=== PATIENT | male | born 1975 | race Caucasian/White ===

== ENCOUNTER 2019-02-05 22:59 | Inpatient (IN) | payer OTHER ==
[~2019-02-05] VITALS: Ht 188 cm; Wt 103.0 kg
[2019-02-05] MEDS ORDERED: ACETAMINOPHEN 650 MG SUPP.RECT. PR ONE (23:15)
[2019-02-05 23:17] LABS: BASO % 1 % (0-3); EOS % 0 % (0-3); HEMATOCRIT 39.4 % (39.0-53.0); HEMOGLOBIN 13.6 g/dL (13.0-17.5); LYMPH % 17 % (24-48); MEAN CORPUSCULAR HEMOGLOBIN 30 pg (25-35); MEAN CORPUSCULAR HGB CONC 35 g/dL (31-37); MEAN CORPUSCULAR VOLUME 86 fL (79-100); MONO # 0.9 x10^3/uL (0.0-1.1); MONO % 15 % (0-9); NEUT # 4.1 x10^3/uL (1.8-7.7); NEUT % 67 % (31-73); PLATELET COUNT 178 x10^3/uL (140-400); RED CELL DISTRIBUTION WIDTH 13.3 % (11.5-14.5); WHITE BLOOD COUNT 6.1 x10^3/uL (4.0-11.0)
[2019-02-05 23:26] LABS: PROTHROMBIN TIME PATIENT 13.8 SEC (11.7-14.0)
[2019-02-05 23:28] LABS: CALCIUM 8.3 mg/dL (8.5-10.1); CREATININE 0.9 mg/dL (0.7-1.3); POTASSIUM 3.3 mmol/L (3.5-5.1)
[2019-02-05 23:34] LABS: ALBUMIN 3.6 g/dL (3.4-5.0); ALBUMIN/GLOBULIN RATIO 1.1 (1.0-1.7); MAGNESIUM 1.7 mg/dL (1.8-2.4); TOTAL BILIRUBIN 0.4 mg/dL (0.2-1.0); TOTAL PROTEIN 6.9 g/dL (6.4-8.2)
--- NOTE | 2019-02-05 23:47 | RAD ---
CT scan of the head without contrast 02/05/2019 Clinical History: Head trauma. Syncope. Technique: Unenhanced, contiguous, 5 mm axial sections were obtained through the head. One or more of the following individualized dose reduction techniques were utilized for this study: 1. Automated exposure control. 2. Adjustment of the mA and/or kV according to patient size. 3. Use of iterative reconstruction technique. Findings: A acute subdural hematomas seen on the right temporal and frontal lobes extending to involve the anterior interhemispheric fissure. This measures 3 to 4 mm in thickness. There is no significant mass effect. The ventricles are within normal limits in size and configuration. No acute parenchymal abnormality is seen. An acute nearly horizontal fracture is seen along the petrous portion of the right temporal bone. This extends to involve the external auditory canal. The hemorrhage is seen within the external auditory canal and possibly the middle ear cavity. Hemorrhage is seen within the superior mastoid air cells. IMPRESSION: 1. Acute subdural hematoma is seen along the lateral aspect of the right temporal and right frontal lobes extending to involve the anterior interhemispheric fissure. This measures 3 to 4 mm in thickness. There is no significant mass effect. 2. Acute fracture is seen involving the petrous portion of the right temporal bone. This extends to involve the right external auditory canal. CT scan of the cervical spine without contrast 02/05/2019 Clinical history: Trauma. Neck injury. Technique: Unenhanced, contiguous, 0.625 mm axial sections were obtained through the cervical spine. Axial, coronal and sagittal reconstructed images were obtained. One or more of the following individualized dose reduction techniques were utilized for this study: 1. Automated exposure control. 2. Adjustment of the mA and/or kV according to patient size. 3. Use of iterative reconstruction technique. Findings: Sagittal and coronal reconstructed images demonstrate mild straightening of the normal cervical lordosis. No fracture or subluxation of the cervical vertebrae is seen. Impression: No fracture or subluxation of the cervical vertebra is identified. These findings were discussed with Dr. Kohli. Electronically signed by: Prabhakar Washburn MD (02/05/2019 11:44 PM) [facility]
--- NOTE | 2019-02-05 23:48 | RAD ---
Indication:Syncope, fever. TECHNIQUE:Portable AP chest X-ray COMPARISON: None FINDINGS: Heart is normal in size. Mild interstitial opacities without focal consolidation. No pneumothorax or effusion. Visualized bony thorax within normal limits. IMPRESSION: Mild interstitial opacities may be secondary to atypical/viral infection. Electronically signed by: Lito Reyes DO (02/05/2019 11:45 PM) [facility]
[2019-02-05 23:56] LABS: BILIRUBIN,URINE NEGATIVE (NEG); CLARITY,URINE CLEAR; COLOR,URINE YELLOW; NITRITE,URINE NEGATIVE (NEG); PH,URINE 6.5; PROTEIN,URINE NEGATIVE (NEG-TRACE)
--- NOTE | 2019-02-05 23:57 | PHYS DOC ---
Past Medical History Past Medical History: Anxiety Additional Past Medical Histor: PTSD, sleep apnea Past Medical History Limited due to altered mental status Additional Past Surgical Histo: Hernia Past Surgical History Limited due to altered mental status Smoking: Cigarettes Alcohol Use: Occasionally Drug Use: None Social History Limited due to altered mental status Adult General Chief Complaint Chief Complaint: ALTERED MENTAL STATUS HPI HPI 43-year-old male presents via EMS with report of witnessed syncopal episode after patient had a "coughing fit " just prior to arrival. EMS reports family noted patient "passed out" and fell backward striking back of head. Family reported to EMS that he was passed out for approximately 30 sec and was "shaking". Patient very confused upon EMS arrival which improved during transport. Patient was placed in c-collar by EMS but then patient "removed it" in route. Per family, patient has had cough for several days. Reports he was complaining that it "hurt" when he would smoke cigarettes. History of present illness limited due to altered mental status. Review of Systems Review of Systems HENT: Denies epistaxis; possible bleeding out of right ear GI: Denies vomiting Neurologic: Reports syncopal episode and observed "shaking" Review of systems limited secondary to altered mental status Current Medications Current Medications Current Medications Medications (Trade) Dose Ordered Sig/Alexy Start Time Stop Time Status Last Admin Dose Admin Acetaminophen (Tylenol Supp) 650 mg 1X ONCE 02/05/19 23:15 02/06/19 00:06 DC 02/05/19 23:48 650 MG Lorazepam (Ativan Inj) 2 mg STK-MED ONCE 02/05/19 23:46 02/05/19 23:47 DC Physical Exam Physical Exam Constitutional: Well developed, well nourished, no acute distress, non-toxic appearance HENT: Normocephalic, occipital contusion noted, oropharynx moist, blood noted in external ear canal on right Eyes: PERRL, EOMI, conjunctiva normal, no discharge Neck: Supple, c-collar placed upon arrival Cardiovascular: Heart rate normal, regular rhythm Lungs & Thorax: Bilateral breath sounds clear to auscultation, no wheezing Abdomen: Soft, no tenderness, pelvis stable and nontender Skin: Warm, dry, no erythema, no rash Back: No tenderness, no CVA tenderness Extremities: No tenderness, ROM intact, no edema Neurologic: Alert and oriented to name only, GCS 14, normal motor function, normal sensory function, no focal deficits noted Current Patient Data Vital Signs Vital Signs Date Time Temp Pulse Resp B/P (MAP) Pulse Ox O2 Delivery O2 Flow Rate FiO2 02/05/19 22:59 101.3 80 13 122/72 (89) 90 Room Air 101.3 Lab Values Laboratory Tests Test 02/05/19 23:05 02/05/19 23:45 White Blood Count 6.1 x10^3/uL (4.0-11.0) Red Blood Count 4.60 x10^6/uL (4.30-5.70) Hemoglobin 13.6 g/dL (13.0-17.5) Hematocrit 39.4 % (39.0-53.0) Mean Corpuscular Volume 86 fL (79-100) Mean Corpuscular Hemoglobin 30 pg (25-35) Mean Corpuscular Hemoglobin Concent 35 g/dL (31-37) Red Cell Distribution Width 13.3 % (11.5-14.5) Platelet Count 178 x10^3/uL (140-400) Neutrophils (%) (Auto) 67 % (31-73) Lymphocytes (%) (Auto) 17 % (24-48) L Monocytes (%) (Auto) 15 % (0-9) H Eosinophils (%) (Auto) 0 % (0-3) Basophils (%) (Auto) 1 % (0-3) Neutrophils # (Auto) 4.1 x10^3/uL (1.8-7.7) Lymphocytes # (Auto) 1.0 x10^3/uL (1.0-4.8) Monocytes # (Auto) 0.9 x10^3/uL (0.0-1.1) Eosinophils # (Auto) 0.0 x10^3/uL (0.0-0.7) Basophils # (Auto) 0.0 x10^3/uL (0.0-0.2) Prothrombin Time 13.8 SEC (11.7-14.0) Prothrombin Time INR 1.1 (0.8-1.1) Activated Partial Thromboplast Time 40 SEC (24-38) H Sodium Level 137 mmol/L (136-145) Potassium Level 3.3 mmol/L (3.5-5.1) L Chloride Level 101 mmol/L (98-107) Carbon Dioxide Level 24 mmol/L (21-32) Anion Gap 12 (6-14) Blood Urea Nitrogen 6 mg/dL (8-26) L Creatinine 0.9 mg/dL (0.7-1.3) Estimated GFR (Cockcroft-Gault) 93.0 BUN/Creatinine Ratio 7 (6-20) Glucose Level 123 mg/dL (70-99) H Lactic Acid Level 0.9 mmol/L (0.4-2.0) Calcium Level 8.3 mg/dL (8.5-10.1) L Magnesium Level 1.7 mg/dL (1.8-2.4) L Total Bilirubin 0.4 mg/dL (0.2-1.0) Aspartate Amino Transferase (AST) 35 U/L (15-37) Alanine Aminotransferase (ALT) 63 U/L (16-63) Alkaline Phosphatase 69 U/L (46-116) Creatine Kinase 360 U/L (39-308) H Creatine Kinase MB (Mass) 1.0 ng/mL (0.0-3.6) Creatine Kinase MB Relative Index 0.3 % (0-4) Troponin I Quantitative < 0.017 ng/mL (0.000-0.055) Total Protein 6.9 g/dL (6.4-8.2) Albumin 3.6 g/dL (3.4-5.0) Albumin/Globulin Ratio 1.1 (1.0-1.7) Ethyl Alcohol Level < 10 mg/dL (0-10) Urine Collection Type Unknown Urine Color Yellow Urine Clarity Clear Urine pH 6.5 Urine Specific [place] 1.010 Urine Protein Negative mg/dL (NEG-TRACE) Urine Glucose (UA) Negative mg/dL (NEG) Urine Ketones (Stick) 15 mg/dL (NEG) Urine Blood Negative (NEG) Urine Nitrite Negative (NEG) Urine Bilirubin Negative (NEG) Urine Urobilinogen Dipstick 1.0 mg/dL (0.2 mg/dL) Urine Leukocyte Esterase Negative (NEG) Urine RBC 1-2 /HPF (0-2) Urine WBC 0 /HPF (0-4) Urine Bacteria 0 /HPF (0-FEW) Urine Mucus Mod /LPF Urine Opiates Screen Neg (NEG) Urine Methadone Screen Neg (NEG) Urine Barbiturates Neg (NEG) Urine Phencyclidine Screen Neg (NEG) Urine Amphetamine/Methamphetamine Neg (NEG) Urine Benzodiazepines Screen Neg (NEG) Urine Cocaine Screen Neg (NEG) Urine Cannabinoids Screen Neg (NEG) Urine Ethyl Alcohol Neg (NEG) Laboratory Tests 02/05/19 23:05 Laboratory Tests 02/05/19 23:05 EKG EKG @2329 at 81bpm, NO ST elevation, QRS 104ms, QT/QTc 348/405ms Radiology/Procedures Radiology/Procedures PROCEDURE: CT HEAD AND CERVICAL SPINE WO CT scan of the head without contrast 02/05/2019 Clinical History: Head trauma. Syncope. Technique: Unenhanced, contiguous, 5 mm axial sections were obtained through the head. One or more of the following individualized dose reduction techniques were utilized for this study: 1. Automated exposure control. 2. Adjustment of the mA and/or kV according to patient size. 3. Use of iterative reconstruction technique. Findings: A acute subdural hematomas seen on the right temporal and frontal lobes extending to involve the anterior interhemispheric fissure. This measures 3 to 4 mm in thickness. There is no significant mass effect. The ventricles are within normal limits in size and configuration. No acute parenchymal abnormality is seen. An acute nearly horizontal fracture is seen along the petrous portion of the right temporal bone. This extends to involve the external auditory canal. The hemorrhage is seen within the external auditory canal and possibly the middle ear cavity. Hemorrhage is seen within the superior mastoid air cells. IMPRESSION: 1. Acute subdural hematoma is seen along the lateral aspect of the right temporal and right frontal lobes extending to involve the anterior interhemispheric fissure. This measures 3 to 4 mm in thickness. There is no significant mass effect. 2. Acute fracture is seen involving the petrous portion of the right temporal bone. This extends to involve the right external auditory canal. CT scan of the cervical spine without contrast 02/05/2019 Clinical history: Trauma. Neck injury. Technique: Unenhanced, contiguous, 0.625 mm axial sections were obtained through the cervical spine. Axial, coronal and sagittal reconstructed images were obtained. One or more of the following individualized dose reduction techniques were utilized for this study: 1. Automated exposure control. 2. Adjustment of the mA and/or kV according to patient size. 3. Use of iterative reconstruction technique. Findings: Sagittal and coronal reconstructed images demonstrate mild straightening of the normal cervical lordosis. No fracture or subluxation of the cervical vertebrae is seen. Impression: No fracture or subluxation of the cervical vertebra is identified. These findings were discussed with Dr. Cat. Electronically signed by: Prabhakar Washburn MD (02/05/2019 11:44 PM) [facility] PROCEDURE: PORTABLE CHEST 1V Indication:Syncope, fever. TECHNIQUE:Portable AP chest X-ray COMPARISON: None FINDINGS: Heart is normal in size. Mild interstitial opacities without focal consolidation. No pneumothorax or effusion. Visualized bony thorax within normal limits. IMPRESSION: Mild interstitial opacities may be secondary to atypical/viral infection. Electronically signed by: Lito Reyes DO (02/05/2019 11:45 PM) [facility] Course & Med Decision Making Course & Med Decision Making Pertinent Labs and Imaging studies reviewed. (See chart for details) Patient presents via EMS with report of syncopal episode after coughing "fit". Patient noted to have bleeding out of right ear canal. Trauma alert. Patient placed immediately in c-collar. CT head/cervical spine with confirmation of skull fracture and small subdural hematoma. Labs obtained and posted to chart. WBC and lactic acid within normal limits. Chest x-ray with signs of atypical/viral bronchitis. Empiric antibiotics initiated for skull fracture and atypical bronchitis. Ativan provided as patient became agitated and tried to get out of bed without support. Patient requiring ICU admission for further evaluation and treatment. Discussed with Dr. Chavira (neurosurgery) who is in agreement with consultation. Discussed with Dr. Colunga (hospitalist) who is in agreement with admission. Discussed findings and plan with family, who acknowledge understanding and agreement. Dragon Disclaimer Dragon Disclaimer This electronic medical record was generated, in whole or in part, using a voice recognition dictation system. Departure Departure Impression: Primary Impression: Syncope Additional Impressions: Skull fracture Subdural hematoma Bronchitis Disposition: 09 ADMITTED INPATIENT Admitting Physician: REBA Crawley) Condition: GUARDED Referrals: NO PCP (PCP) Critical Care Time Critical care time was 30 minutes which includes time at bedside, spent in discussion of patient's care with specialists and/or family members, with interpretation of laboratory and/or radiological studies and is exclusive of procedures. Problem Qualifiers Primary Impression: Syncope Syncope type: unspecified Qualified Codes: R55 - Syncope and collapse Additional Impressions: Skull fracture Encounter type: initial encounter Skull bone/location: unspecified skull bone Fracture type: open Qualified Codes: S02.91XB - Unspecified fracture of skull, initial encounter for open fracture GAMA CAT DO Feb 05, 2019 23:57
[2019-02-06] VITALS (24 sets, daily range): BP systolic 95–143; BP diastolic 43–79
[2019-02-06] LABS: BACTERIA,URINE 0 /HPF (0-FEW); WBC,URINE 0 /HPF (0-4)
[2019-02-06 00:02] LABS: BARBITURATES NEG (NEG); BENZODIAZEPINES NEG (NEG); CANNABINOIDS NEG (NEG); COCAINE NEG (NEG); METHADONE NEG (NEG); OPIATES NEG (NEG); PHENCYCLIDINE NEG (NEG)
[2019-02-06 00:04] LABS: AMPHETAMINE/METHAMPHETAMINE NEG (NEG)
[2019-02-06] MEDS: POTASSIUM CHLORIDE 10MEQ 100 ML IV SCH ×2 (00:14→01:35)
[2019-02-06] MEDS ORDERED: MAGNESIUM SULFATE 2GM 50 ML IV ONE (00:30)
[2019-02-06] MEDS ORDERED: PIPERACILLIN/TAZOBACTAM 4.5 GM in IV NORMAL SALINE 100ML 100 ML IV ONE (00:30)
[2019-02-06] MEDS ORDERED: IV NORMAL SALINE 1000ML BAG 1,000 ML IV ONE (00:30)
--- NOTE | 2019-02-06 02:33 | NUR ---
At 0100, patient admitted to room 107 from ER. Patient moved from cart to bed. Monitor on. Patient alert and oriented to person and place. Drowsy but able to follow commands. RIA. SIMENTAL with equal strength. SR. 2LNC with coarse lung sounds. Melendez to d/d. Small amount of blood coming from right ear. No c/o pain or discomfort at this time. Call light is within reach. at bedside. Will monitor.
[2019-02-06] MEDS ORDERED: ESOM40CA PO (03:28)
[2019-02-06] MEDS ORDERED: AMIT25TA PO (03:28)
[2019-02-06] MEDS ORDERED: PROP10TA PO (03:28)
[2019-02-06] MEDS ORDERED: DULO30CA2 PO (03:28)
--- NOTE | 2019-02-06 08:48 | PDOC1 ---
History and Physical Date of Admission Date of Admission DATE: 02/06/19 TIME: 08:45 Identification/Chief Complaint Chief Complaint admitted thru er ,43-year-old male presents via EMS with report of witnessed syncopal episode after patient had a "coughing fit " just prior to arrival. EMS reports family noted patient "passed out" and fell backward striking back of head. He states he is visiting from [place], [place], his son is in [facility], and he was staying in a motel 8 miles from here. Family reported to EMS that he was passed out for approximately 30 sec and was "shaking". very confused upon EMS arrival which improved during transport., now very alert and oriented fever noted on admit, will screen for pertussis, add zithromax was placed in c-collar by EMS but then patient "removed it" in route. patient has had cough for several days. 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 [employer] Pulmonary: Other (BRONCHITIS) Psych: Anxiety ENT: No pertinent hx Renal/: No pertinent hx Dermatology: No pertinent hx Family History Family History: High Cholestrol Social History Smoke: <1 pack per day ALCOHOL: none Drugs: None Current Problem List Problem List Problems Medical Problems: (1) Bronchitis Status: Acute Current Medications Current Medications Current Medications Acetaminophen (Tylenol Supp) 650 mg 1X ONCE MT Last administered on 02/05/19at 23:48; Start 02/05/19 at 23:15; Stop 02/06/19 at 00:06; Status DC Sodium Chloride 1,000 ml @ 1,000 mls/hr 1X ONCE IV Last administered on 02/05/19at 23:20; Start 02/06/19 at 00:30; Stop 02/06/19 at 01:29; Status DC Piperacillin Sod/ Tazobactam Sod 4.5 gm/Sodium Chloride 100 ml @ 200 mls/hr 1X ONCE IV Last administered on 02/06/19at 00:13; Start 02/06/19 at 00:30; Stop 02/06/19 at 00:59; Status DC Magnesium Sulfate 50 ml @ 25 mls/hr 1X ONCE IV Last administered on 02/06/19at 00:14; Start 02/06/19 at 00:30; Stop 02/06/19 at 02:29; Status DC Potassium Chloride/Water 100 ml @ 100 mls/hr Q1H IV Last administered on 02/06/19at 01:35; Start 02/06/19 at 01:00; Stop 02/06/19 at 02:59; Status DC Lorazepam (Ativan Inj) 2 mg STK-MED ONCE .ROUTE ; Start 02/05/19 at 23:46; Stop 02/05/19 at 23:47; Status DC Ondansetron HCl (Zofran) 4 mg PRN Q8HRS PRN IV NAUSEA/VOMITING 1ST CHOICE; Start 02/06/19 at 00:00; Stop 02/06/19 at 23:59 Fentanyl Citrate (Fentanyl 2ml Vial) 50 mcg PRN Q2HRS PRN IV SEVERE PAIN 7-10; Start 02/06/19 at 00:00 Lorazepam (Ativan Inj) 1 mg PRN Q4HRS PRN IVP ANXIETY / AGITATION; Start 02/06/19 at 00:15 Active Scripts Active Reported Amitriptyline Hcl 25 Mg Tablet 1 Tab PO QHS Propranolol Hcl 10 Mg Tablet 1 Tab PO TID PRN PRN Nexium Capsule (Esomeprazole Magnesium) 40 Mg Capsule.dr 1 Cap PO DAILY Cymbalta (Duloxetine Hcl) 30 Mg Capsule.dr 1 Cap PO DAILY Allergies Allergies: Coded Allergies: No Known Drug Allergies (Unverified , 02/06/19) ROS General: No: Chills, Night Sweats, Fatigue, Malaise, Appetite, Other PSYCHOLOGICAL ROS: YES: Anxiety, Disorientation; No: Behavioral Disorder, Concentration difficultie, Decreased libido, Depression, Hallucinations, Hostility, Irritablity, Memory difficulties, Mood Swings, Obsessive thoughts, Physical abuse, Sexual abuse, Sleep disturbances, Suicidal ideation, Other HEENT: YES: Heacaches Hematological and Lymphatic: No: Bleeding Problems, Blood Clots, Blood Transfusions, Brusing, Night Sweats, Pallor, Swollen Lymph Nodes, Other Breast: No New/Changing Breast Lumps, No Nipple changes, No Nipple discharge, No Other Respiratory: YES: Cough, Shortness of breath, Sputum Changes Cardiovascular: No Chest Pain, No Palpitations, No Orthopnea, No Paroxysmal Noc. Dyspnea, No Edema, No Lt Headedness, No Other Gastrointestinal: No Nausea, No Vomiting, No Abdominal Pain, No Diarrhea, No Co nstipation, No Melena, No Hematochezia, No Other Genitourinary: No Dysuria, No Frequency, No Incontinence, No Hematuria, No Retention, No Discharge, No Urgency, No Pain, No Flank Pain, No Other, No , No , No , No , No , No , No Musculoskeletal: Yes Gait Disturbance Neurological: Yes Confusion, Yes Gait Disturbance, Yes Impaired Coord/balance Physical Exam Physical Exam Physical Exam Physical Exam Constitutional: Well developed, well nourished, mild acute distress, non-toxic appearance HENT: Normocephalic, occipital contusion noted, oropharynx moist, blood noted in external ear canal on right Eyes: PERRL, EOMI, conjunctiva normal, no discharge Neck: Supple, c-collar placed upon arrival Cardiovascular: Heart rate normal, regular rhythm Lungs & Thorax: Bilateral breath sounds clear to auscultation, no wheezing Abdomen: Soft, no tenderness, pelvis stable and nontender Skin: Warm, dry, no erythema, no rash Back: No tenderness, no CVA tenderness Extremities: No tenderness, ROM intact, no edema Neurologic: Alert and oriented normal motor function, normal sensory function, no focal deficits noted General: Alert, Oriented X3, Cooperative Heart: RRR, no thrills, no rubs Breasts: Not examined Abdomen: Normal bowel sounds, Soft Rectal Exam: not examined PELVIC: Examination not indicated Extremities: No cyanosis Neuro: Normal speech, Cranial nerves 3-12 NL Psych/Mental Status: Mental status NL, Mood NL Vitals Vitals Vital Signs Date Time Temp Pulse Resp B/P (MAP) Pulse Ox O2 Delivery O2 Flow Rate FiO2 02/06/19 06:00 79 22 100/62 (75) 92 Room Air 02/06/19 04:00 98.1 98.1 02/06/19 01:15 2.0 Labs Labs Laboratory Tests Test 02/05/19 23:05 02/05/19 23:45 White Blood Count 6.1 x10^3/uL (4.0-11.0) Red Blood Count 4.60 x10^6/uL (4.30-5.70) Hemoglobin 13.6 g/dL (13.0-17.5) Hematocrit 39.4 % (39.0-53.0) Mean Corpuscular Volume 86 fL (79-100) Mean Corpuscular Hemoglobin 30 pg (25-35) Mean Corpuscular Hemoglobin Concent 35 g/dL (31-37) Red Cell Distribution Width 13.3 % (11.5-14.5) Platelet Count 178 x10^3/uL (140-400) Neutrophils (%) (Auto) 67 % (31-73) Lymphocytes (%) (Auto) 17 % (24-48) Monocytes (%) (Auto) 15 % (0-9) Eosinophils (%) (Auto) 0 % (0-3) Basophils (%) (Auto) 1 % (0-3) Neutrophils # (Auto) 4.1 x10^3/uL (1.8-7.7) Lymphocytes # (Auto) 1.0 x10^3/uL (1.0-4.8) Monocytes # (Auto) 0.9 x10^3/uL (0.0-1.1) Eosinophils # (Auto) 0.0 x10^3/uL (0.0-0.7) Basophils # (Auto) 0.0 x10^3/uL (0.0-0.2) Prothrombin Time 13.8 SEC (11.7-14.0) Prothromb Time International Ratio 1.1 (0.8-1.1) Activated Partial Thromboplast Time 40 SEC (24-38) Sodium Level 137 mmol/L (136-145) Potassium Level 3.3 mmol/L (3.5-5.1) Chloride Level 101 mmol/L (98-107) Carbon Dioxide Level 24 mmol/L (21-32) Anion Gap 12 (6-14) Blood Urea Nitrogen 6 mg/dL (8-26) Creatinine 0.9 mg/dL (0.7-1.3) Estimated GFR (Cockcroft-Gault) 93.0 BUN/Creatinine Ratio 7 (6-20) Glucose Level 123 mg/dL (70-99) Lactic Acid Level 0.9 mmol/L (0.4-2.0) Calcium Level 8.3 mg/dL (8.5-10.1) Magnesium Level 1.7 mg/dL (1.8-2.4) Total Bilirubin 0.4 mg/dL (0.2-1.0) Aspartate Amino Transf (AST/SGOT) 35 U/L (15-37) Alanine Aminotransferase (ALT/SGPT) 63 U/L (16-63) Alkaline Phosphatase 69 U/L (46-116) Creatine Kinase 360 U/L (39-308) Creatine Kinase MB (Mass) 1.0 ng/mL (0.0-3.6) Creatine Kinase MB Relative Index 0.3 % (0-4) Troponin I Quantitative < 0.017 ng/mL (0.000-0.055) Total Protein 6.9 g/dL (6.4-8.2) Albumin 3.6 g/dL (3.4-5.0) Albumin/Globulin Ratio 1.1 (1.0-1.7) Ethyl Alcohol Level < 10 mg/dL (0-10) Urine Collection Type Unknown Urine Color Yellow Urine Clarity Clear Urine pH 6.5 Urine Specific [place] 1.010 Urine Protein Negative mg/dL (NEG-TRACE) Urine Glucose (UA) Negative mg/dL (NEG) Urine Ketones (Stick) 15 mg/dL (NEG) Urine Blood Negative (NEG) Urine Nitrite Negative (NEG) Urine Bilirubin Negative (NEG) Urine Urobilinogen Dipstick 1.0 mg/dL (0.2 mg/dL) Urine Leukocyte Esterase Negative (NEG) Urine RBC 1-2 /HPF (0-2) Urine WBC 0 /HPF (0-4) Urine Bacteria 0 /HPF (0-FEW) Urine Mucus Mod /LPF Urine Opiates Screen Neg (NEG) Urine Methadone Screen Neg (NEG) Urine Barbiturates Neg (NEG) Urine Phencyclidine Screen Neg (NEG) Urine Amphetamine/Methamphetamine Neg (NEG) Urine Benzodiazepines Screen Neg (NEG) Urine Cocaine Screen Neg (NEG) Urine Cannabinoids Screen Neg (NEG) Urine Ethyl Alcohol Neg (NEG) Laboratory Tests Test 02/05/19 23:05 02/05/19 23:45 White Blood Count 6.1 x10^3/uL (4.0-11.0) Red Blood Count 4.60 x10^6/uL (4.30-5.70) Hemoglobin 13.6 g/dL (13.0-17.5) Hematocrit 39.4 % (39.0-53.0) Mean Corpuscular Volume 86 fL (79-100) Mean Corpuscular Hemoglobin 30 pg (25-35) Mean Corpuscular Hemoglobin Concent 35 g/dL (31-37) Red Cell Distribution Width 13.3 % (11.5-14.5) Platelet Count 178 x10^3/uL (140-400) Neutrophils (%) (Auto) 67 % (31-73) Lymphocytes (%) (Auto) 17 % (24-48) Monocytes (%) (Auto) 15 % (0-9) Eosinophils (%) (Auto) 0 % (0-3) Basophils (%) (Auto) 1 % (0-3) Neutrophils # (Auto) 4.1 x10^3/uL (1.8-7.7) Lymphocytes # (Auto) 1.0 x10^3/uL (1.0-4.8) Monocytes # (Auto) 0.9 x10^3/uL (0.0-1.1) Eosinophils # (Auto) 0.0 x10^3/uL (0.0-0.7) Basophils # (Auto) 0.0 x10^3/uL (0.0-0.2) Prothrombin Time 13.8 SEC (11.7-14.0) Prothromb Time International Ratio 1.1 (0.8-1.1) Activated Partial Thromboplast Time 40 SEC (24-38) Sodium Level 137 mmol/L (136-145) Potassium Level 3.3 mmol/L (3.5-5.1) Chloride Level 101 mmol/L (98-107) Carbon Dioxide Level 24 mmol/L (21-32) Anion Gap 12 (6-14) Blood Urea Nitrogen 6 mg/dL (8-26) Creatinine 0.9 mg/dL (0.7-1.3) Estimated GFR (Cockcroft-Gault) 93.0 BUN/Creatinine Ratio 7 (6-20) Glucose Level 123 mg/dL (70-99) Lactic Acid Level 0.9 mmol/L (0.4-2.0) Calcium Level 8.3 mg/dL (8.5-10.1) Magnesium Level 1.7 mg/dL (1.8-2.4) Total Bilirubin 0.4 mg/dL (0.2-1.0) Aspartate Amino Transf (AST/SGOT) 35 U/L (15-37) Alanine Aminotransferase (ALT/SGPT) 63 U/L (16-63) Alkaline Phosphatase 69 U/L (46-116) Creatine Kinase 360 U/L (39-308) Creatine Kinase MB (Mass) 1.0 ng/mL (0.0-3.6) Creatine Kinase MB Relative Index 0.3 % (0-4) Troponin I Quantitative < 0.017 ng/mL (0.000-0.055) Total Protein 6.9 g/dL (6.4-8.2) Albumin 3.6 g/dL (3.4-5.0) Albumin/Globulin Ratio 1.1 (1.0-1.7) Ethyl Alcohol Level < 10 mg/dL (0-10) Urine Collection Type Unknown Urine Color Yellow Urine Clarity Clear Urine pH 6.5 Urine Specific [place] 1.010 Urine Protein Negative mg/dL (NEG-TRACE) Urine Glucose (UA) Negative mg/dL (NEG) Urine Ketones (Stick) 15 mg/dL (NEG) Urine Blood Negative (NEG) Urine Nitrite Negative (NEG) Urine Bilirubin Negative (NEG) Urine Urobilinogen Dipstick 1.0 mg/dL (0.2 mg/dL) Urine Leukocyte Esterase Negative (NEG) Urine RBC 1-2 /HPF (0-2) Urine WBC 0 /HPF (0-4) Urine Bacteria 0 /HPF (0-FEW) Urine Mucus Mod /LPF Urine Opiates Screen Neg (NEG) Urine Methadone Screen Neg (NEG) Urine Barbiturates Neg (NEG) Urine Phencyclidine Screen Neg (NEG) Urine Amphetamine/Methamphetamine Neg (NEG) Urine Benzodiazepines Screen Neg (NEG) Urine Cocaine Screen Neg (NEG) Urine Cannabinoids Screen Neg (NEG) Urine Ethyl Alcohol Neg (NEG) Images Images Indication:Syncope, fever. TECHNIQUE:Portable AP chest X-ray COMPARISON: None FINDINGS: Heart is normal in size. Mild interstitial opacities without focal consolidation. No pneumothorax or effusion. Visualized bony thorax within normal limits. IMPRESSION: Mild interstitial opacities may be secondary to atypical/viral infection. Electronically signed by: Lito Reyes DO (02/05/2019 11:45 PM) [facility] scan of the head without contrast 02/05/2019 Clinical History: Head trauma. Syncope. Technique: Unenhanced, contiguous, 5 mm axial sections were obtained through the head. One or more of the following individualized dose reduction techniques were utilized for this study: 1. Automated exposure control. 2. Adjustment of the mA and/or kV according to patient size. 3. Use of iterative reconstruction technique. Findings: A acute subdural hematomas seen on the right temporal and frontal lobes extending to involve the anterior interhemispheric fissure. This measures 3 to 4 mm in thickness. There is no significant mass effect. The ventricles are within normal limits in size and configuration. No acute parenchymal abnormality is seen. An acute nearly horizontal fracture is seen along the petrous portion of the right temporal bone. This extends to involve the external auditory canal. The hemorrhage is seen within the external auditory canal and possibly the middle ear cavity. Hemorrhage is seen within the superior mastoid air cells. IMPRESSION: 1. Acute subdural hematoma is seen along the lateral aspect of the right temporal and right frontal lobes extending to involve the anterior interhemispheric fissure. This measures 3 to 4 mm in thickness. There is no significant mass effect. 2. Acute fracture is seen involving the petrous portion of the right temporal bone. This extends to involve the right external auditory canal. CT scan of the cervical spine without contrast 02/05/2019 Clinical history: Trauma. Neck injury. Technique: Unenhanced, contiguous, 0.625 mm axial sections were obtained through the cervical spine. Axial, coronal and sagittal reconstructed images were obtained. One or more of the following individualized dose reduction techniques were utilized for this study: 1. Automated exposure control. 2. Adjustment of the mA and/or kV according to patient size. 3. Use of iterative reconstruction technique. Findings: Sagittal and coronal reconstructed images demonstrate mild straightening of the normal cervical lordosis. No fracture or subluxation of the cervical vertebrae is seen. Impression: No fracture or subluxation of the cervical vertebra is identified. These findings were discussed with Dr. Kohli. Electronically signed by: Chapis Washburn MD (02/05/2019 11:44 PM) [facility] DICTATED and SIGNED BY: CHAPIS WASHBURN MD DATE: 02/05/19 2344 VTE Prophylaxis Ordered VTE Prophylaxis Devices: Yes VTE Pharmacological Prophylaxi: Contraindicated Assessment/Plan Assessment/Plan IMPRESSION: 1. Acute subdural hematoma is seen along the lateral aspect of the right temporal and right frontal lobes extending to involve the anterior interhemispheric fissure. // measures 3 to 4 mm in thickness.//no significant mass effect. POA 2. Acute fracture is seen involving the petrous portion of the right temporal bone. extends to the right external auditory canal. 3. Mild interstitial opacities may be secondary to atypical/viral infection. vs early pneumonia VS BRONCHITIS 4. mechanical fall 5. tobacco abuse 6. No fracture or subluxation of the cervical vertebra is identified. 7. acute metabolic encephalopathy, concussion, improving plan ADMIT ICU Neurosurgery consult ID Consult neurology consult emperic iv antibiotics, add cover for atypicals// zithromax blood culture scd's sputum culture fall precautions pertussis screen duonebs qid repeat cxr pulm consult legionella urinary antigen NPO F/U CT HEAD IV FLUID SUPPORT D/W RN 45 min cc time DIEGO QUEEN MD Feb 06, 2019 08:48
[2019-02-06] MEDS: fentaNYL PF VIAL 100 MCG/2 ML VIAL IV PRN ×5 (09:33→23:36)
[2019-02-06] MEDS ORDERED: BISACODYL 10 MG SUPP.RECT. PR PRN (11:30)
[2019-02-06] MEDS ORDERED: ONDANSETRON PF 4 MG/2 ML VIAL. IV PRN ×2 (11:30)
[2019-02-06] MEDS ORDERED: PROCHLORPERAZINE 10 MG/2 ML VIAL. IV PRN (11:30)
[2019-02-06] MEDS ORDERED: LACTULOSE 20 GM/30 ML SOLUTION. PO PRN (11:30)
[2019-02-06] MEDS ORDERED: CALCIUM CARBONATE 500 MG TAB.CHEW PO PRN (11:30)
[2019-02-06] MEDS ORDERED: 0.9 % SODIUM CHLORIDE 10 ML DISP.SYRIN. IV PRN (11:30)
[2019-02-06] MEDS ORDERED: ACETAMINOPHEN 325 MG TABLET. PO PRN (11:30)
--- NOTE | 2019-02-06 12:03 | RAD ---
EXAM: Chest, 2 views. HISTORY: Pneumonitis. COMPARISON: 02/05/2019. FINDINGS: 2 views of the chest are obtained. There is no infiltrate, pleural effusion or pneumothorax. There is suspected left infrahilar atelectasis. The heart is normal in size. IMPRESSION: No acute pulmonary finding. Electronically signed by: Freda Adam MD (02/06/2019 12:00 PM) [facility]
[2019-02-06] MEDS: AZITHROMYCIN 500 MG in IV NORMAL SALINE 250ML 250 ML IV SCH (13:03)
[2019-02-06] MEDS: IPRATRPIUM/ALBUTEROL 0.5/2.5MG 3 ML NEBU. NEB SCH ×2 (15:48→20:37)
[2019-02-06] MEDS: levETIRAcetam 500 MG TABLET PO SCH ×2 (15:57→21:08)
[2019-02-06] MEDS: guaiFENesin DM 600/30MG 1 TAB TAB.ER.12H PO SCH ×2 (15:57→21:08)
[2019-02-06 16:28] LABS: INFLUENZA A PATIENT NEGATIVE (NEGATIVE); INFLUENZA B PATIENT NEGATIVE (NEGATIVE)
--- NOTE | 2019-02-06 16:50 | RAD ---
Exam: CT head INDICATION: Follow-up subdural hematoma TECHNIQUE: Sequential axial images through the head were obtained without the administration of IV contrast. Comparisons: CT yesterday FINDINGS: Redemonstration of a trace subdural hematoma predominantly seen along the right frontal convexity overlying the frontal lobe measuring 2 to 3 mm in thickness. Since the prior exam there is now a 6 mm focus of intraparenchymal hemorrhage in the right frontal lobe series 2 image 14. There is no midline shift or sulcal effacement. No acute vascular territory infarction is identified. Carrillo-white distinction is preserved. The ventricular system is within normal limits without compression hydrocephalus. The basal cisterns are well maintained. The visualized portions of the paranasal sinuses and mastoid air cells are well-pneumatized. No acute fractures. IMPRESSION: 1. Development of a 6 mm focus of intraparenchymal hemorrhage at the right frontal lobe as described above. 2. Stable trace subdural hematoma predominantly in the right frontal convexity measuring 2 to 3 mm. Exposure: One or more of the following in the visualized dose reduction techniques were utilized for this examination: 1. Automated exposure control 2. Adjustment of the MA and/or KV according to patient size Use of iterative of reconstructive technique Electronically signed by: Fer Weber MD (02/06/2019 4:47 PM) [facility]
[2019-02-06] MEDS: DOCUSATE SODIUM 100 MG CAPSULE. PO SCH ×2 (21:00→21:08)
[2019-02-06] MEDS: FAMOTIDINE 20 MG/2 ML VIAL IVP SCH (21:09)
[2019-02-06] MEDS ORDERED: POTASSIUM CHLORIDE 20 MEQ TABLET.ER. PO ONE (22:30)
--- NOTE | 2019-02-06 23:43 | CONS ---
DATE OF CONSULTATION: 02/06/2019 REFERRING PHYSICIAN: Dr. Colunga REASON FOR CONSULTATION: Traumatic head injury with subdural hematoma and fracture. HISTORY OF PRESENT ILLNESS: The patient is a 43-year-old man who had been having a severe cough for the last 4 days. He had a coughing fit and then had syncope and he fell backwards and struck his head on concrete. He shook for about 30 seconds. They live in [place], but he had been visiting his son at [facility]. He is going to be there for another 3 years. He was confused when EMS arrived. In the Emergency Room at [facility], a CT scan of the head and neck revealed right-sided subdural hematoma with interhemispheric blood as well as fracture through the right ethmoid region and inner ear. There was some blood in the ear. He did not have a fracture of his neck. He is awoken, but does complain of diffuse pain and headache. PAST MEDICAL HISTORY: 1. Posttraumatic stress disorder and anxiety. 2. Sleep apnea. 3. Hernia repair. 4. Bronchitis. ALLERGIES: No known allergies to drugs. MEDICATIONS PRIOR TO ADMISSION: Amitriptyline 25 mg at night, duloxetine 30 mg, esomeprazole 20 mg and propranolol 10 mg 3 times per day as needed. FAMILY HISTORY: High cholesterol. SOCIAL HISTORY: He smokes less than a pack of cigarettes per day. He does not drink alcohol or use recreational drugs. He is and has four children. His oldest son is 24 and in [place]. He has an 18-year-old that graduated high school. His youngest is a 10-year-old daughter. His children are in good health. REVIEW OF SYSTEMS: He has headache. He has diminished hearing in the right ear. He has no alteration of vision. He feels foggy headed. He has been able to swallow without choking. He does not feel short of breath, have chest or abdominal pain. He is complaining of diffuse bone and joint pain. There has been no fever or rash. He has had a severe cough. No genitourinary complaints. Does not complain of bruising, bleeding or excessive swelling. Does have psychiatric concerns with anxiety and posttraumatic stress disorder. PHYSICAL EXAMINATION: VITAL SIGNS: Blood pressure was 100/62, pulse 79, respirations 22 and temperature 98.1 degrees axillary. Oximetry was 92% on room air. His weight was 103 kilograms, height 74 inches with a calculated body mass index of 29.1. GENERAL: He was alert, awake and cooperative. Speech was fluent and clear. He had a good fund of recent and remote knowledge. Attention and concentration was intact. He appeared well groomed and well nourished. He was fully oriented. He did not recall the name of the hospital, but is not from this area. NEUROLOGIC: Examination of the cranial nerves revealed visual reddy were full to confrontation. Extraocular movements were intact. The eyes were conjugate. Pursuit movements were smooth and saccadic eye movements were without dysmetria. Funduscopic exam did not reveal papilledema, exudate or hemorrhage. Facial sensation was intact. The muscles of mastication and facial expression were powerful symmetrically. Hearing was intact to finger rub. The palate arched symmetrically and the tongue was midline with full range of motion. Sternocleidomastoid and trapezius were powerful. Muscle bulk and tone was normal. There was no arm drift or abnormal movement. Power was full and symmetric in upper and lower extremities. Reflexes 2/4 in the upper and lower extremities. Reflexes were diminished at the ankles. Toes were not upgoing. Coordination testing with [id number], [id number], fine motor and rapid alternating movements were fairly well performed. The sensory exam was intact to pain, light touch, proprioception, graphesthesia, cold, thermal and vibration. There was no extinction to double simultaneous stimulation. Gait was not testable. NECK: Auscultation of the carotid arteries did not reveal a bruit. HEART: Rhythm is regular, without a murmur. EXTREMITIES: Peripheral pulses were symmetric in the hands and feet. There was no edema or cyanosis. REVIEW OF LABORATORY DATA: CBC was performed 02/05/2019 and revealed a normal white blood cell count, hemoglobin, hematocrit and platelet count. Chemistries from 02/05/2019 revealed normal sodium, but potassium was low at 3.3. The chloride, CO2 and creatinine were normal. BUN was low at 6. The GFR calculated at 93. Glucose was elevated at 123. The calcium was low at 8.3 and magnesium at 1.7. The liver enzymes were not elevated. Total protein and albumin were normal. CPK was elevated to 360. Troponin was not elevated, measured on 2 different occasions. Lactic acid was not elevated. Urine drug screen was negative. There was no alcohol detected in the urine or serum. Urinalysis revealed 1-2 red blood cells. PT/INR was 1.1 and PTT was 40. CT scan of the brain and cervical spine was performed 02/05/2019. This revealed a normal cervical spine without fracture or subluxation. The CT scan of the brain was abnormal revealing a subdural hematoma along the lateral aspect of the right temporal and frontal regions and a little blood into the anterior interhemispheric fissure. Maximum thickness was 3-4 mm without any significant mass effect. There was acute fracture to the petrous region of the right temporal bone extending to involve the right external auditory canal. There was blood seen in the external auditory canal. IMPRESSION: The patient is a 43-year-old man who had cough syncope, fell to the ground and struck his head. This caused fracture and subdural hematoma. Luckily, he did not fracture his neck. He has diminished hearing in the right ear because of the fracture and the blood in the region. He likely has suffered a concussion, but luckily no intraparenchymal hemorrhage. He likely suffered a concussion, but prognosis can be favorable in this situation. I do not feel he is going to require surgical intervention as there is no mass effect and there is no bony displacement. RECOMMENDATIONS: I would like to initiate levetiracetam 500 mg IV twice per day until oral intake is secured. I would continue anticonvulsants until the blood is absorbed. This may take a few months. He will have a followup CAT scan to make sure there has not been any progression of hemorrhage or mass effect. From a neurologic perspective if he is not nauseated, he may start to advance his diet. I will be happy to reevaluate. I appreciate being involved in his care. TOMASA DREW MD DR: AN/kaity JOB#: [id number] / [id number] [address]
[2019-02-07] VITALS (20 sets, daily range): BP systolic 106–131; BP diastolic 56–76
[2019-02-07] MEDS: fentaNYL PF VIAL 100 MCG/2 ML VIAL IV PRN ×4 (06:18→22:54)
--- NOTE | 2019-02-07 07:18 | PDOC ---
Provider Note Provider Note [id number] cough acute bronchitis acute bronchospasm syncope sdh see orders LINO HUGGINS MD Feb 07, 2019 07:18
[2019-02-07 07:57] LABS: BASO % 0 % (0-3); EOS % 0 % (0-3); HEMATOCRIT 37.8 % (39.0-53.0); HEMOGLOBIN 12.8 g/dL (13.0-17.5); LYMPH # 1.7 x10^3/uL (1.0-4.8); LYMPH % 21 % (24-48); MEAN CORPUSCULAR HEMOGLOBIN 29 pg (25-35); MEAN CORPUSCULAR HGB CONC 34 g/dL (31-37); MEAN CORPUSCULAR VOLUME 86 fL (79-100); MONO # 0.9 x10^3/uL (0.0-1.1); MONO % 11 % (0-9); NEUT # 5.6 x10^3/uL (1.8-7.7); NEUT % 68 % (31-73); PLATELET COUNT 190 x10^3/uL (140-400); RED BLOOD COUNT 4.37 x10^6/uL (4.30-5.70); RED CELL DISTRIBUTION WIDTH 13.3 % (11.5-14.5); WHITE BLOOD COUNT 8.2 x10^3/uL (4.0-11.0)
--- NOTE | 2019-02-07 08:12 | CONS ---
DATE OF CONSULTATION: 02/07/2019 HISTORY OF PRESENT ILLNESS: I was asked to see this 43-year-old gentleman for cough, acute bronchitis. He has history of [id number] smoking, continues to smoke half a pack per day. He has had severe cough with occasional sputum production for the past 4-5 days. He denies fever or chills. He denies shortness of breath. He has a history of asthma as a child. He lives in [place] and visited his [facility] and in a hotel parking lot, he had severe cough. He had a syncopal episode, he fell and was unresponsive for 30 seconds. EMS was called and he was brought to the Emergency Room, had a CT of the head done, which did show acute subdural hematoma at the lateral aspect of the right temporal and right frontal lobes extending to involve the anterior interhemispheric fissure measuring 3-4 mm in thickness, acute fracture involving the petrous portion of the right temporal bone extending to involve the right external auditory canal. Neurology and Neurosurgery consultation was obtained. Repeat CT showed a stable subdural hematoma with development of 6 mm focus of intraparenchymal hemorrhage at the right frontal lobe. Neurology started him on anti-seizure. Currently, he has headache. He denies shortness of breath. He has cough. He denies gastroesophageal reflux symptoms with diarrhea. PAST MEDICAL HISTORY: Post-traumatic stress disorder, sleep apnea. He had a sleep study done 3 years ago, was told to use oral appliances, he never did it. He does have excessive daytime sleepiness and snoring. Asthma as a child. MEDICATIONS: Currently, he is on DuoNeb, Pepcid, Keppra, azithromycin. ALLERGIES: No known drug allergies. SOCIAL HISTORY: History of 39-[id number]-[id number] smoking, continues to smoke half pack per day. FAMILY HISTORY: There is no history of lung disease. REVIEW OF SYSTEMS: As mentioned as above. He has snoring and excessive daytime sleepiness. Other systems are otherwise negative. PHYSICAL EXAMINATION: GENERAL: This is a well-developed gentleman. VITAL SIGNS: His O2 saturation is 98%, respiratory rate 20, heart rate 90, blood pressure 112/68, temperature 98.4. HEENT: Normocephalic. Pupils are equal, round, reactive to light. Throat is clear. Nose is clear. NECK: There is no JVD, lymphadenopathy or thyromegaly. CARDIOVASCULAR: Regular rate and rhythm. PMI is nondisplaced. CHEST: Inspection is normal. LUNGS: Few end expiratory wheezing. Percussion is within normal limit. ABDOMEN: Soft. Bowel sounds are good. There is no mass. EXTREMITIES: There is no edema. LYMPHATICS: There is no lymphadenopathy. NEUROLOGIC: Alert and oriented. SKIN: Warm. LABORATORY DATA: I reviewed the following lab data: CT of head as mentioned above. WBC 6.1, hemoglobin 13.6, platelets 178. Sodium 137, potassium 3.3, chloride 101, CO2 24, glucose 123, BUN 6, creatinine 0.9. CK 360. Troponin less than 0.017. Urine drug screen is negative. Influenza A and B are negative. Chest x-ray. There is no infiltrate. IMPRESSION: 1. Cough secondary to acute bronchitis and acute bronchospasm versus acute exacerbation of asthma versus chronic obstructive pulmonary disease. 2. Acute bronchitis. 3. Acute bronchospasm, cannot rule out acute exacerbation of asthma/chronic obstructive pulmonary disease. 4. Tobacco habituation. 5. Obstructive sleep apnea-hypopnea syndrome. 6. Syncope. 7. Subdural hematoma and skull fracture. PLAN AND RECOMMENDATIONS: 1. Titrate FiO2 to keep O2 saturation 92%. 2. Agree with bronchodilator. 3. Add inhaled corticosteroid. He may require systemic steroid. 4. Continue azithromycin. 5. Sputum culture is done. 6. I will do an echocardiogram. He had a syncopal episode, could be secondary to cough, syncope versus others. 7. I had a long discussion with him regarding smoking cessation. I have advised him to stop smoking forever. 8. Subdural hematoma per Neurology and Neurosurgery. The patient will be monitored in the ICU. 9. The findings and recommendations were discussed with the patient and RN. I have answered all of the patient's questions. He understood and agreed to proceed with the plan. I have discussed the findings and recommendation with the patient and RN. I have answered all of the patient's questions. He understood and agreed to proceed with the plan. LINO HUGGINS M.D. DR: MAYELA/kaity JOB#: [id number] / [id number]
[2019-02-07 08:40] LABS: ALBUMIN 3.2 g/dL (3.4-5.0); ALBUMIN/GLOBULIN RATIO 0.9 (1.0-1.7); CALCIUM 8.5 mg/dL (8.5-10.1); CREATININE 0.7 mg/dL (0.7-1.3); GFR 124.3; POTASSIUM 4.5 mmol/L (3.5-5.1); TOTAL BILIRUBIN 0.4 mg/dL (0.2-1.0); TOTAL PROTEIN 6.9 g/dL (6.4-8.2)
--- NOTE | 2019-02-07 08:55 | PDOC ---
Provider Note Provider Note LATE ENTRY- patient seen and examined at 1400 on 02/06 43-year-old man who had been having a severe cough for the last 4 days. He had a coughing fit and then had syncope and he fell backwards and struck his head on concrete. He shook for about 30 seconds He was brought to the Emergency Room at [facility], a CT scan of the head and neck revealed right-sided subdural hematoma with interhemispheric blood as well as fracture through the right ethmoid region and inner ear. There was some blood in the ear. He did not have a fracture of his neck. does complain of diffuse pain and headache. On Exam: c/o headache. He was alert, awake and cooperative.Neuro intact. I do not feel he is going to require surgical intervention as there is no mass effect and there is no bony displacement. Will follow. JULI STANFORD MD Feb 07, 2019 08:55
--- NOTE | 2019-02-07 08:55 | PDOC ---
Infectious Disease Note Vital Sign Vital Signs Vital Signs Date Time Temp Pulse Resp B/P (MAP) Pulse Ox O2 Delivery O2 Flow Rate FiO2 02/07/19 08:00 97.9 59 21 122/65 (84) 94 Room Air 97.9 02/06/19 12:00 2.0 Labs Lab Laboratory Tests Test 02/06/19 11:45 02/06/19 16:02 02/07/19 07:16 Troponin I Quantitative < 0.017 ng/mL (0.000-0.055) Influenza Type A Antigen Negative (NEGATIVE) Influenza Type B Antigen Negative (NEGATIVE) White Blood Count 8.2 x10^3/uL (4.0-11.0) Red Blood Count 4.37 x10^6/uL (4.30-5.70) Hemoglobin 12.8 g/dL (13.0-17.5) Hematocrit 37.8 % (39.0-53.0) Mean Corpuscular Volume 86 fL (79-100) Mean Corpuscular Hemoglobin 29 pg (25-35) Mean Corpuscular Hemoglobin Concent 34 g/dL (31-37) Red Cell Distribution Width 13.3 % (11.5-14.5) Platelet Count 190 x10^3/uL (140-400) Neutrophils (%) (Auto) 68 % (31-73) Lymphocytes (%) (Auto) 21 % (24-48) Monocytes (%) (Auto) 11 % (0-9) Eosinophils (%) (Auto) 0 % (0-3) Basophils (%) (Auto) 0 % (0-3) Neutrophils # (Auto) 5.6 x10^3/uL (1.8-7.7) Lymphocytes # (Auto) 1.7 x10^3/uL (1.0-4.8) Monocytes # (Auto) 0.9 x10^3/uL (0.0-1.1) Eosinophils # (Auto) 0.0 x10^3/uL (0.0-0.7) Basophils # (Auto) 0.0 x10^3/uL (0.0-0.2) Micro Microbiology 02/05/19 Blood Culture - Preliminary, Resulted NO GROWTH AFTER 1 DAY Objective Assessment Fever. influenza neg, may likely be reactive to trauma, infection not ruled out Acute bronchitits Skull fracture Subdural hematoma/intraparenchymal hemorrhage following a fall Syncopal episode Tobacco dependence Plan Plan of Care azithromycin x 3 days Sputum culture pending Avoid nasal tubes/swabs and blowing nose Dose Rocephin for prophylaxis Rec MRI brain to evaluate DANIA fracture f/u cultures Monitor closely Neuro and NS following. No surgical plans D/w nursing Above rec per Dr. Malone Thank you [id number] Patient seen and examined. Chart reviewed in detail. Case discussed with GENERAL NEUROLOGIST. Agree with above plan LAYTON LARSON APRN Feb 07, 2019 08:55 FAUSTO MALONE MD Feb 07, 2019 18:59
[2019-02-07] MEDS: levETIRAcetam 500 MG TABLET PO SCH ×2 (08:57→21:26)
[2019-02-07] MEDS: guaiFENesin DM 600/30MG 1 TAB TAB.ER.12H PO SCH ×2 (08:57→21:26)
[2019-02-07] MEDS: DOCUSATE SODIUM 100 MG CAPSULE. PO SCH ×2 (08:57→21:00)
[2019-02-07] MEDS: FAMOTIDINE 20 MG/2 ML VIAL IVP SCH ×2 (08:57→21:27)
[2019-02-07] MEDS: IPRATRPIUM/ALBUTEROL 0.5/2.5MG 3 ML NEBU. NEB SCH ×4 (09:06→20:20)
[2019-02-07] MEDS: BUDESONIDE 0.5 MG/2 ML NEBU. NEB SCH ×2 (09:09→20:20)
--- NOTE | 2019-02-07 10:54 | PDOC ---
PROGRESS NOTES History of Present Illness History of Present Illness VTE Prophylaxis Ordered VTE Prophylaxis Devices: Yes VTE Pharmacological Prophylaxi: Contraindicated Assessment/Plan Assessment/Plan IMPRESSION: 1. Acute subdural hematoma is seen along the lateral aspect of the right temporal and right frontal lobes extending to involve the anterior interhemispheric fissure. // measures 3 to 4 mm in thickness.//no significant mass effect. POA 2. Acute fracture is seen involving the petrous portion of the right temporal bone. extends to the right external auditory canal. 3. Mild interstitial opacities may be secondary to atypical/viral infection. vs early pneumonia VS BRONCHITIS 4. mechanical fall 5. tobacco abuse 6. No fracture or subluxation of the cervical vertebra is identified. 7. acute metabolic encephalopathy, concussion, improving 02/07 more alert, eating reg breakfast headache stable plan ADMIT ICU Neurosurgery following ID following neurology consult emperic iv antibiotics, add cover for atypicals// zithromax blood culture scd's sputum culture fall precautions pertussis screen pending duonebs qid repeat cxr pulm consult legionella urinary antigen NPO F/U CT HEAD anticonvulstant, iv keppra 500mg bid IV FLUID SUPPORT D/W RN 45 min cc time Vitals Vitals Vital Signs Date Time Temp Pulse Resp B/P (MAP) Pulse Ox O2 Delivery O2 Flow Rate FiO2 02/07/19 10:00 68 18 113/56 (75) 94 Room Air 02/07/19 08:00 97.9 97.9 02/06/19 12:00 2.0 Physical Exam General: Alert, Oriented X3, Cooperative, No acute distress Heart: Regular rate, Normal S1, Normal S2 Lungs: Clear Abdomen: Normal bowel sounds, Soft Extremities: No clubbing, No cyanosis Skin: No rashes Labs LABS PATIENT: MAHOGANY RAMIREZ ACCT: [id number] LOC: 1 [facility] U: [id number] AGE/SX: 43/M ROOM: 107 RE/25/[address]: RONIT GRANT MD : [id number] BED: 1 DIS: STATUS: ADM IN TLOC: SPEC #: [id number] CHAPO: 02/05/19 STATUS: RES REQ #: [id number] RECD: 02/05/[address]: GAMA CAT DO SOURCE: BLOOD ENTR: 02/05/[address]: MY GUARDADO SPDESC: ORDERED: BCULT Procedure Result BLOOD CULTURE Preliminary NO GROWTH AFTER 1 DAY Laboratory Tests Test 02/06/19 11:45 02/06/19 16:02 02/07/19 07:16 Troponin I Quantitative < 0.017 ng/mL (0.000-0.055) Influenza Type A Antigen Negative (NEGATIVE) Influenza Type B Antigen Negative (NEGATIVE) White Blood Count 8.2 x10^3/uL (4.0-11.0) Red Blood Count 4.37 x10^6/uL (4.30-5.70) Hemoglobin 12.8 g/dL (13.0-17.5) Hematocrit 37.8 % (39.0-53.0) Mean Corpuscular Volume 86 fL (79-100) Mean Corpuscular Hemoglobin 29 pg (25-35) Mean Corpuscular Hemoglobin Concent 34 g/dL (31-37) Red Cell Distribution Width 13.3 % (11.5-14.5) Platelet Count 190 x10^3/uL (140-400) Neutrophils (%) (Auto) 68 % (31-73) Lymphocytes (%) (Auto) 21 % (24-48) Monocytes (%) (Auto) 11 % (0-9) Eosinophils (%) (Auto) 0 % (0-3) Basophils (%) (Auto) 0 % (0-3) Neutrophils # (Auto) 5.6 x10^3/uL (1.8-7.7) Lymphocytes # (Auto) 1.7 x10^3/uL (1.0-4.8) Monocytes # (Auto) 0.9 x10^3/uL (0.0-1.1) Eosinophils # (Auto) 0.0 x10^3/uL (0.0-0.7) Basophils # (Auto) 0.0 x10^3/uL (0.0-0.2) Sodium Level 137 mmol/L (136-145) Potassium Level 4.5 mmol/L (3.5-5.1) Chloride Level 102 mmol/L (98-107) Carbon Dioxide Level 24 mmol/L (21-32) Anion Gap 11 (6-14) Blood Urea Nitrogen 5 mg/dL (8-26) Creatinine 0.7 mg/dL (0.7-1.3) Estimated GFR (Cockcroft-Gault) 124.3 BUN/Creatinine Ratio 7 (6-20) Glucose Level 115 mg/dL (70-99) Calcium Level 8.5 mg/dL (8.5-10.1) Total Bilirubin 0.4 mg/dL (0.2-1.0) Aspartate Amino Transf (AST/SGOT) 25 U/L (15-37) Alanine Aminotransferase (ALT/SGPT) 57 U/L (16-63) Alkaline Phosphatase 61 U/L (46-116) Total Protein 6.9 g/dL (6.4-8.2) Albumin 3.2 g/dL (3.4-5.0) Albumin/Globulin Ratio 0.9 (1.0-1.7) Assessment and Plan Assessmemt and Plan Problems Medical Problems: (1) Bronchitis Status: Acute Comment Review of Relevant I have reviewed the following items bekah (where applicable) has been applied. Labs Laboratory Tests Test 02/05/19 23:05 02/05/19 23:45 02/06/19 11:45 02/06/19 16:02 White Blood Count 6.1 x10^3/uL (4.0-11.0) Red Blood Count 4.60 x10^6/uL (4.30-5.70) Hemoglobin 13.6 g/dL (13.0-17.5) Hematocrit 39.4 % (39.0-53.0) Mean Corpuscular Volume 86 fL (79-100) Mean Corpuscular Hemoglobin 30 pg (25-35) Mean Corpuscular Hemoglobin Concent 35 g/dL (31-37) Red Cell Distribution Width 13.3 % (11.5-14.5) Platelet Count 178 x10^3/uL (140-400) Neutrophils (%) (Auto) 67 % (31-73) Lymphocytes (%) (Auto) 17 % (24-48) Monocytes (%) (Auto) 15 % (0-9) Eosinophils (%) (Auto) 0 % (0-3) Basophils (%) (Auto) 1 % (0-3) Neutrophils # (Auto) 4.1 x10^3/uL (1.8-7.7) Lymphocytes # (Auto) 1.0 x10^3/uL (1.0-4.8) Monocytes # (Auto) 0.9 x10^3/uL (0.0-1.1) Eosinophils # (Auto) 0.0 x10^3/uL (0.0-0.7) Basophils # (Auto) 0.0 x10^3/uL (0.0-0.2) Prothrombin Time 13.8 SEC (11.7-14.0) Prothromb Time International Ratio 1.1 (0.8-1.1) Activated Partial Thromboplast Time 40 SEC (24-38) Sodium Level 137 mmol/L (136-145) Potassium Level 3.3 mmol/L (3.5-5.1) Chloride Level 101 mmol/L (98-107) Carbon Dioxide Level 24 mmol/L (21-32) Anion Gap 12 (6-14) Blood Urea Nitrogen 6 mg/dL (8-26) Creatinine 0.9 mg/dL (0.7-1.3) Estimated GFR (Cockcroft-Gault) 93.0 BUN/Creatinine Ratio 7 (6-20) Glucose Level 123 mg/dL (70-99) Lactic Acid Level 0.9 mmol/L (0.4-2.0) Calcium Level 8.3 mg/dL (8.5-10.1) Magnesium Level 1.7 mg/dL (1.8-2.4) Total Bilirubin 0.4 mg/dL (0.2-1.0) Aspartate Amino Transf (AST/SGOT) 35 U/L (15-37) Alanine Aminotransferase (ALT/SGPT) 63 U/L (16-63) Alkaline Phosphatase 69 U/L (46-116) Creatine Kinase 360 U/L (39-308) Creatine Kinase MB (Mass) 1.0 ng/mL (0.0-3.6) Creatine Kinase MB Relative Index 0.3 % (0-4) Troponin I Quantitative < 0.017 ng/mL (0.000-0.055) < 0.017 ng/mL (0.000-0.055) Total Protein 6.9 g/dL (6.4-8.2) Albumin 3.6 g/dL (3.4-5.0) Albumin/Globulin Ratio 1.1 (1.0-1.7) Ethyl Alcohol Level < 10 mg/dL (0-10) Urine Collection Type Unknown Urine Color Yellow Urine Clarity Clear Urine pH 6.5 Urine Specific Tolley 1.010 Urine Protein Negative mg/dL (NEG-TRACE) Urine Glucose (UA) Negative mg/dL (NEG) Urine Ketones (Stick) 15 mg/dL (NEG) Urine Blood Negative (NEG) Urine Nitrite Negative (NEG) Urine Bilirubin Negative (NEG) Urine Urobilinogen Dipstick 1.0 mg/dL (0.2 mg/dL) Urine Leukocyte Esterase Negative (NEG) Urine RBC 1-2 /HPF (0-2) Urine WBC 0 /HPF (0-4) Urine Bacteria 0 /HPF (0-FEW) Urine Mucus Mod /LPF Urine Opiates Screen Neg (NEG) Urine Methadone Screen Neg (NEG) Urine Barbiturates Neg (NEG) Urine Phencyclidine Screen Neg (NEG) Urine Amphetamine/Methamphetamine Neg (NEG) Urine Benzodiazepines Screen Neg (NEG) Urine Cocaine Screen Neg (NEG) Urine Cannabinoids Screen Neg (NEG) Urine Ethyl Alcohol Neg (NEG) Influenza Type A Antigen Negative (NEGATIVE) Influenza Type B Antigen Negative (NEGATIVE) Test 02/07/19 07:16 White Blood Count 8.2 x10^3/uL (4.0-11.0) Red Blood Count 4.37 x10^6/uL (4.30-5.70) Hemoglobin 12.8 g/dL (13.0-17.5) Hematocrit 37.8 % (39.0-53.0) Mean Corpuscular Volume 86 fL (79-100) Mean Corpuscular Hemoglobin 29 pg (25-35) Mean Corpuscular Hemoglobin Concent 34 g/dL (31-37) Red Cell Distribution Width 13.3 % (11.5-14.5) Platelet Count 190 x10^3/uL (140-400) Neutrophils (%) (Auto) 68 % (31-73) Lymphocytes (%) (Auto) 21 % (24-48) Monocytes (%) (Auto) 11 % (0-9) Eosinophils (%) (Auto) 0 % (0-3) Basophils (%) (Auto) 0 % (0-3) Neutrophils # (Auto) 5.6 x10^3/uL (1.8-7.7) Lymphocytes # (Auto) 1.7 x10^3/uL (1.0-4.8) Monocytes # (Auto) 0.9 x10^3/uL (0.0-1.1) Eosinophils # (Auto) 0.0 x10^3/uL (0.0-0.7) Basophils # (Auto) 0.0 x10^3/uL (0.0-0.2) Sodium Level 137 mmol/L (136-145) Potassium Level 4.5 mmol/L (3.5-5.1) Chloride Level 102 mmol/L (98-107) Carbon Dioxide Level 24 mmol/L (21-32) Anion Gap 11 (6-14) Blood Urea Nitrogen 5 mg/dL (8-26) Creatinine 0.7 mg/dL (0.7-1.3) Estimated GFR (Cockcroft-Gault) 124.3 BUN/Creatinine Ratio 7 (6-20) Glucose Level 115 mg/dL (70-99) Calcium Level 8.5 mg/dL (8.5-10.1) Total Bilirubin 0.4 mg/dL (0.2-1.0) Aspartate Amino Transf (AST/SGOT) 25 U/L (15-37) Alanine Aminotransferase (ALT/SGPT) 57 U/L (16-63) Alkaline Phosphatase 61 U/L (46-116) Total Protein 6.9 g/dL (6.4-8.2) Albumin 3.2 g/dL (3.4-5.0) Albumin/Globulin Ratio 0.9 (1.0-1.7) Laboratory Tests Test 02/06/19 11:45 02/06/19 16:02 02/07/19 07:16 Troponin I Quantitative < 0.017 ng/mL (0.000-0.055) Influenza Type A Antigen Negative (NEGATIVE) Influenza Type B Antigen Negative (NEGATIVE) White Blood Count 8.2 x10^3/uL (4.0-11.0) Red Blood Count 4.37 x10^6/uL (4.30-5.70) Hemoglobin 12.8 g/dL (13.0-17.5) Hematocrit 37.8 % (39.0-53.0) Mean Corpuscular Volume 86 fL (79-100) Mean Corpuscular Hemoglobin 29 pg (25-35) Mean Corpuscular Hemoglobin Concent 34 g/dL (31-37) Red Cell Distribution Width 13.3 % (11.5-14.5) Platelet Count 190 x10^3/uL (140-400) Neutrophils (%) (Auto) 68 % (31-73) Lymphocytes (%) (Auto) 21 % (24-48) Monocytes (%) (Auto) 11 % (0-9) Eosinophils (%) (Auto) 0 % (0-3) Basophils (%) (Auto) 0 % (0-3) Neutrophils # (Auto) 5.6 x10^3/uL (1.8-7.7) Lymphocytes # (Auto) 1.7 x10^3/uL (1.0-4.8) Monocytes # (Auto) 0.9 x10^3/uL (0.0-1.1) Eosinophils # (Auto) 0.0 x10^3/uL (0.0-0.7) Basophils # (Auto) 0.0 x10^3/uL (0.0-0.2) Sodium Level 137 mmol/L (136-145) Potassium Level 4.5 mmol/L (3.5-5.1) Chloride Level 102 mmol/L (98-107) Carbon Dioxide Level 24 mmol/L (21-32) Anion Gap 11 (6-14) Blood Urea Nitrogen 5 mg/dL (8-26) Creatinine 0.7 mg/dL (0.7-1.3) Estimated GFR (Cockcroft-Gault) 124.3 BUN/Creatinine Ratio 7 (6-20) Glucose Level 115 mg/dL (70-99) Calcium Level 8.5 mg/dL (8.5-10.1) Total Bilirubin 0.4 mg/dL (0.2-1.0) Aspartate Amino Transf (AST/SGOT) 25 U/L (15-37) Alanine Aminotransferase (ALT/SGPT) 57 U/L (16-63) Alkaline Phosphatase 61 U/L (46-116) Total Protein 6.9 g/dL (6.4-8.2) Albumin 3.2 g/dL (3.4-5.0) Albumin/Globulin Ratio 0.9 (1.0-1.7) Microbiology 02/05/19 Blood Culture - Preliminary, Resulted NO GROWTH AFTER 1 DAY Medications Current Medications Acetaminophen (Tylenol Supp) 650 mg 1X ONCE AR Last administered on 02/05/19at 23:48; Start 02/05/19 at 23:15; Stop 02/06/19 at 00:06; Status DC Sodium Chloride 1,000 ml @ 1,000 mls/hr 1X ONCE IV Last administered on 02/05/19at 23:20; Start 02/06/19 at 00:30; Stop 02/06/19 at 01:29; Status DC Piperacillin Sod/ Tazobactam Sod 4.5 gm/Sodium Chloride 100 ml @ 200 mls/hr 1X ONCE IV Last administered on 02/06/19at 00:13; Start 02/06/19 at 00:30; Stop 02/06/19 at 00:59; Status DC Magnesium Sulfate 50 ml @ 25 mls/hr 1X ONCE IV Last administered on 02/06/19at 00:14; Start 02/06/19 at 00:30; Stop 02/06/19 at 02:29; Status DC Potassium Chloride/Water 100 ml @ 100 mls/hr Q1H IV Last administered on 02/06/19at 01:35; Start 02/06/19 at 01:00; Stop 02/06/19 at 02:59; Status DC Lorazepam (Ativan Inj) 2 mg STK-MED ONCE .ROUTE ; Start 02/05/19 at 23:46; Stop 02/05/19 at 23:47; Status DC Ondansetron HCl (Zofran) 4 mg PRN Q8HRS PRN IV NAUSEA/VOMITING 1ST CHOICE; Start 02/06/19 at 00:00; Stop 02/06/19 at 23:59; Status DC Fentanyl Citrate (Fentanyl 2ml Vial) 50 mcg PRN Q2HRS PRN IV SEVERE PAIN 7-10 Last administered on 02/07/19at 09:05; Start 02/06/19 at 00:00 Lorazepam (Ativan Inj) 1 mg PRN Q4HRS PRN IVP ANXIETY / AGITATION; Start 02/06/19 at 00:15; Stop 02/06/19 at 11:34; Status DC Acetaminophen (Tylenol) 650 mg PRN Q6HRS PRN PO Headaches, Temp > 101.5'; Start 02/06/19 at 11:30 Lorazepam (Ativan Inj) 0.5 mg PRN Q6HRS PRN IV ANXIETY / AGITATION; Start 02/06/19 at 11:30 Ondansetron HCl (Zofran) 4 mg PRN Q6HRS PRN IV NAUSEA/VOMITING; Start 02/06/19 at 11:30 Prochlorperazine Edisylate (Compazine) 5 mg PRN Q6HRS PRN IV NAUSEA/VOMITING 2ND CHOICE; Start 02/06/19 at 11:30 Calcium Carbonate/ Glycine (Tums) 500 mg PRN Q3HRS PRN PO HEARTBURN / GAS; Start 02/06/19 at 11:30 Famotidine (Pepcid Vial) 20 mg BID IVP Last administered on 02/07/19 08:57; Start 02/06/19 at 21:00 Sodium Chloride (Normal Saline Flush) 3 ml QSHIFT PRN IV AFTER MEDS AND BLOOD DRAWS; Start 02/06/19 at 11:30 Potassium Chloride/Sodium Chloride 1,000 ml @ 100 mls/hr Q10H IV Last administered on 02/07/19 09:56; Start 02/06/19 at 12:00 Docusate Sodium (Colace) 100 mg BID PO Last administered on 02/07/19 08:57; Start 02/06/19 at 21:00 Lactulose (Lactulose) 20 gm PRN Q12HR PRN PO CONSTIPATION; Start 02/06/19 at 11:30 Bisacodyl (Dulcolax Supp) 10 mg PRN DAILY PRN AR CONSTIPATION; Start 02/06/19 at 11:30 Azithromycin 500 mg/Sodium Chloride 250 ml @ 250 mls/hr Q24H IV Last ad ministered on 02/06/19 13:03; Start 02/06/19 at 12:00 Guaifenesin (MUCINEX ER with DM) 1 tab BID PO Last administered on 02/07/19 08:57; Start 02/06/19 at 12:00 Albuterol/ Ipratropium (Duoneb) 3 ml RTQID NEB Last administered on 02/07/19 09:06; Start 02/06/19 at 12:00 Levetiracetam (Keppra) 500 mg BID PO Last administered on 02/07/19 08:57; Start 02/06/19 at 13:45 Acetaminophen (Tylenol) 650 mg PRN Q4HRS PRN PO PAIN; Start 02/06/19 at 13:45 Potassium Chloride (Klor-Con) 40 meq 1X ONCE PO Last administered on 02/06/19at 23:33; Start 02/06/19 at 22:30; Stop 02/06/19 at 22:31; Status DC Budesonide (Pulmicort) 0.5 mg RTBID NEB Last administered on 02/07/19at 09:09; Start 02/07/19 at 08:00 Active Scripts Active Reported Amitriptyline Hcl 25 Mg Tablet 1 Tab PO QHS Propranolol Hcl 10 Mg Tablet 1 Tab PO TID PRN PRN Nexium Capsule (Esomeprazole Magnesium) 40 Mg Capsule. 1 Cap PO DAILY Cymbalta (Duloxetine Hcl) 30 Mg Capsule. 1 Cap PO DAILY Vitals/I & O Vital Sign - Last 24 Hours 02/06/19 02/06/19 02/06/19 02/06/19 11:00 12:00 12:00 13:00 Temp 98.1 98.1 98.1 98.1 Pulse 81 83 91 Resp 24 B/P (MAP) 120/52 (74) 134/77 (96) 95/43 (60) Pulse Ox 93 93 93 O2 Delivery Room Air Room Air Room Air Room Air O2 Flow Rate 2.0 02/06/19 02/06/19 02/06/19 02/06/19 13:34 14:40 15:00 15:51 Pulse 75 Resp 24 18 18 B/P (MAP) 129/76 (93) Pulse Ox 98 95 94 94 O2 Delivery Room Air Room Air Room Air Room Air 02/06/19 02/06/19 02/06/19 02/06/19 15:58 16:00 16:00 17:00 Pulse 76 67 Resp 21 B/P (MAP) 123/74 (90) 123/74 (90) Pulse Ox 93 93 95 O2 Delivery Room Air Room Air Room Air Room Air 02/06/19 02/06/19 02/06/19 02/06/19 18:00 19:00 20:00 20:07 Temp 98.4 100.8 98.4 100.8 Pulse 75 76 66 Resp 16 23 B/P (MAP) 130/75 (93) 134/77 (96) 127/79 (95) Pulse Ox 93 96 97 97 O2 Delivery Room Air Room Air Room Air Room Air 02/06/19 02/06/19 02/06/1902/06/19 20:37 21:00 21:09 22:00 Pulse 69 68 Resp 23 26 20 B/P (MAP) 143/75 (97) 131/72 (91) Pulse Ox 94 O2 Delivery Room Air Room Air Room Air Room Air 02/06/19 02/06/19 02/07/19 02/07/19 23:00 23:36 00:00 00:18 Temp 99.9 99.9 Pulse 75 67 Resp 24 24 20 20 B/P (MAP) 128/67 (87) 119/61 (80) Pulse Ox 96 O2 Delivery Room Air Room Air Room Air Room Air 02/07/19 02/07/19 02/07/19 02/07/19 01:00 02:00 03:00 04:00 Temp 98.4 98.4 Pulse 73 58 61 62 Resp 23 23 24 22 B/P (MAP) 118/59 (78) 124/75 (91) 114/65 (81) 114/73 (87) Pulse Ox 97 O2 Delivery Room Air Room Air Room Air Room Air 02/07/19 02/07/19 02/07/19 02/07/19 05:00 06:00 06:18 06:49 Pulse 59 90 Resp 20 18 22 29 B/P (MAP) 127/65 (85) 112/68 (83) Pulse Ox 100 O2 Delivery Room Air Room Air Room Air Ventilator 02/07/19 02/07/19 02/07/19 02/07/19 07:00 08:00 08:00 09:00 Temp 97.9 97.9 Pulse 55 59 64 Resp 22 21 22 B/P (MAP) 117/64 (81) 122/65 (84) 116/68 (84) Pulse Ox 95 94 93 O2 Delivery Room Air Room Air Room Air Room Air 02/07/19 02/07/19 02/07/19 02/07/19 09:05 09:09 09:50 10:00 Pulse 68 Resp 21 18 18 B/P (MAP) 113/56 (75) Pulse Ox 93 94 94 O2 Delivery Room Air Room Air Room Air Room Air Intake and Output 0 02/06/19 02/06/19 02/07/19 15:00 23:00 07:00 Intake Total 240 ml 250 ml 1990 ml Output Total 500 ml 0 ml 1900 ml Balance -260 ml 250 ml 90 ml FULBRIGHT,DIEGO W MD Feb 07, 2019 10:54
[2019-02-07] MEDS: AZITHROMYCIN 500 MG in IV NORMAL SALINE 250ML 250 ML IV SCH (11:56)
[2019-02-07] MEDS: ACETAMINOPHEN 325 MG TABLET. PO PRN ×3 (12:02→22:54)
--- NOTE | 2019-02-07 13:35 | EKG ---
[facility] [address] [place] [address] Test Date: 2019-02-05 Test Time: 23:29:54 Pat Name: MAHOGANY RAMIREZ Department: Room: Gender: M [employer] Director: : 1975 Requested By: GAMA CAT Order Number: [id number] Reading MD: Measurements Intervals Armstrong Rate: 81 P: 121 TN: 160 QRS: 173 QRSD: 104 T: 154 QT: 348 QTc: 405 Interpretive Statements SUPRAVENTRICULAR RHYTHM ABNORMAL RIGHT AXIS DEVIATION CONSIDER RIGHT VENTRICULAR HYPERTROPHY QRS(T) CONTOUR ABNORMALITY CONSISTENT WITH HIGH LATERAL INFARCT AGE UNDETERMINED ABNORMAL ECG RI6.01 No previous ECG available for comparison
--- NOTE | 2019-02-07 14:27 | CARD ---
MR#: [id number] Date of Study: 02/07/2019 Ordering Physician: LINO HUGGINS, Referring Physician: LINO HUGGINS Tech: Paty Curiel TIM APPROVED REPORT EXAM: Two-dimensional and M-mode echocardiogram with Doppler and color Doppler. Other Information Quality : GoodHR: 55bpm Rhythm : Bradycardia INDICATION Syncope 2D DIMENSIONS RVDd3.5 (2.9-3.5cm)Left Atrium(2D)3.9 (1.6-4.0cm) IVSd1.3 (0.7-1.1cm)Aortic Root(2D)2.8 (2.0-3.7cm) LVDd4.8 (3.9-5.9cm)LVOT Diameter2.3 (1.8-2.4cm) PWd1.2 (0.7-1.1cm)LVDs3.2 (2.5-4.0cm) FS (%) 34.8 %SV70.4 ml LVEF(%)63.9 (>50%) M-Mode DIMENSIONS Left Atrium(MM)4.25 (2.5-4.0cm)Aortic Root3.22 (2.2-3.7cm) Aortic Valve AoV Peak Rosalio.121.6cm/sAoV VTI24.1cm AO Peak GR.5.9mmHgLVOT VTI 21.09cm AO Mean GR.3mmHgAVA (VTI)3.60cm2 Mitral Valve MV E Qmphmind72.6cm/sMV DECEL [id number] MV A Cszolbnp18.7cm/sE/A Ratio2.0 MV A [id number] TDI Lateral E' P. V14.93cm/sMedial E' P. V14.87cm/s E/Lateral E'5.7E/Medial E'5.7 Tricuspid Valve TR P. [id number]/sRAP [id number] TR Peak Gr.75zzDdDJFY10plMt LEFT VENTRICLE The left ventricle is normal size. There is mild concentric left ventricular hypertrophy. The left ve ntricular systolic function is normal. The Ejection Fraction is 60-65%. There is normal LV segmental wall motion. The left ventricular diastolic function and filling is normal for age. RIGHT VENTRICLE The right ventricle is normal size. There is normal right ventricular wall thickness. The right ventr icular systolic function is normal. ATRIA The left atrium is mildly dilated. The right atrium size is normal. The interatrial septum is intact with no evidence for an atrial septal defect or patent foramen ovale as noted on 2-D or Doppler imagi ng. AORTIC VALVE The aortic valve is normal in structure and function. The aortic valve is trileaflet. Doppler and Col or Flow revealed no significant aortic regurgitation. There is no significant aortic valvular stenosi s. There is no aortic valvular vegetation. MITRAL VALVE The mitral valve is normal in structure and function. There is no evidence of mitral valve prolapse. There is no mitral valve stenosis. Doppler and Color-flow revealed trace mitral regurgitation. TRICUSPID VALVE The tricuspid valve is normal in structure and function. Doppler and Color Flow revealed trace tricus pid regurgitation. The PA pressure was estimated at 26 mmHg. There is no tricuspid valve prolapse or vegetation. There is no tricuspid valve stenosis. PULMONIC VALVE The pulmonic valve is not well visualized. GREAT VESSELS The aortic root is normal in size. The ascending aorta is normal in size. The IVC is normal in size a nd collapses >50% with inspiration. PERICARDIAL EFFUSION There is no evidence of significant pericardial effusion. Critical Notification Critical Value: No <Conclusion> The left ventricular systolic function is normal. The Ejection Fraction is 60-65%. There is normal LV segmental wall motion. Trace mitral regurgitation. Trace tricuspid regurgitation. The PA pressure was estimated at 26 mmHg. There is no evidence of significant pericardial effusion. Signed by : Seth Garcia, Electronically Approved : 02/07/2019 14:27:02
[2019-02-07] MEDS: cefTRIAXone IV Push 2 GM VIAL. IVP SCH ×2 (16:38→23:06)
--- NOTE | 2019-02-07 17:15 | CONS ---
DATE OF CONSULTATION: 02/07/2019 REFERRING PHYSICIAN: Dr. Mosley. REASON FOR CONSULTATION: Fever, fall, subdural hematoma. HISTORY OF PRESENT ILLNESS: This patient is a 43-year-old male who reports having a nagging cough with minimal phlegm production occurring throughout the day and night for over a week now. He complains of mild chest tightness, body aches and joint pains. Denies fevers or chills. While visiting his son at [facility] 2 days ago, he developed a coughing fit and then passed out. Apparently, he fell striking his head on concrete. He shook for about 30 seconds and when he came to, he was confused. On arrival to the ER, he had a temperature of 101.3 and a normal WBC count. A CT head and cervical spine without contrast revealed a right-sided subdural hematoma measuring 3-4 mm in thickness with interhemispheric blood and acute fracture involving the petrous portion of the right temporal bone that extends to involve the right external auditory canal. No significant mass effect or neck fracture. A chest x-ray showed mild interstitial opacities, may be secondary to atypical/viral infection. A Bordetella pertussis PCR has been ordered. He is currently on azithromycin. A followup CT head yesterday showed development of a 6 mm focus of intraparenchymal hemorrhage at the right frontal lobe. No midline shift or sulcal effacement. Stable trace subdural hematoma. He was evaluated by both Neurology and Neurosurgery with no surgical plans recommended. The patient complains of generalized weakness and right-sided headache, primarily over the temporal and ear area. He denies visual disturbances or dizziness. He denies nasal drainage. Denies nausea or vomiting. Denies rash or itching. He lives in [place]. He has both cat and dog. He is a smoker. Denies vaping. 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 He tried [id number] medications including Nyquil, [place] cough drops, Robitussin and thermal flu without relief of cough. PAST MEDICAL HISTORY: Posttraumatic stress disorder, anxiety. PAST SURGICAL HISTORY: Multiple hernia repairs, hydrocele repair, left arm reconstruction. FAMILY HISTORY: Myocardial infarction and diabetes mellitus. SOCIAL HISTORY: The patient is . 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 He is a smoker. He has a cat and dog. He lives in [place]. ALLERGIES: No known drug allergies. MEDICATIONS: Azithromycin since 02/06. Guaifenesin, DuoNeb, lactulose, Keppra, lorazepam, Zofran, potassium, Compazine, calcium, Pulmicort, Dulcolax suppository, Tylenol, Pepcid, fentanyl. REVIEW OF SYSTEMS: Per HPI, otherwise all other review of systems are negative. PHYSICAL EXAMINATION: VITAL SIGNS: Temperature 97.9, T-max 100.8, blood pressure 122/65, heart rate 59, respiratory rate 21, pulse oximetry is 94% on room air. GENERAL: The patient is propped up in bed, alert, no apparent distress. HEENT: Pupils equally round and reactive. Oropharynx pink and moist. No lacerations or abrasions noted on the scalp. He has some dry blood in right ear canal. NECK: Supple, full range of motion. LUNGS: Clear to auscultation. HEART: S1, S2. ABDOMEN: Soft, nontender with bowel sounds present. EXTREMITIES: No gross edema or cyanosis. SKIN: Warm to touch. No signs of rash. NEUROLOGIC: Alert and oriented x 3. Moves all extremities. EOMI. LABORATORY DATA: Today's WBC 8.2, hemoglobin 12.8, platelets 190,000. Sodium 137, potassium 4.5, creatinine 0.7, BUN 5, lactic acid 0.9, glucose 115, total bilirubin 0.4, AST 25, ALT 57. Creatinine kinase 360. Troponin less than 0.017. Albumin 3.2. Urine toxicology negative. Urinalysis unremarkable for infection. Influenza screen negative. Blood cultures from the 25th negative to date. Recent chest x-ray showed no acute pulmonary finding. CT head and cervical spine per HPI. A Bordetella pertussis PCR and legionella antigen pending. Sputum culture pending. IMPRESSION: 1. Fever, likely reactive to trauma, but infection not ruled out. 2. Acute bronchitis. 3. Skull fracture. 4. Subdural hematoma and intraparenchymal hemorrhage following a fall. 5. Syncopal episode. 6. Tobacco dependence. PLAN: Avoid nasal tubes, swabs and blowing nose. We will dose ceftriaxone for prophylaxis. May need MRI brain to evaluate fracture of base of skull. We will follow up on culture results. Monitor closely. We will continue to follow. Thank you, Dr. Mosley for asking us to participate in this patient's care. Should you have further questions or concerns, please call. FAUSTO MONROE MD DR: MELISSA/kaity JOB#: [id number] / [id number]
--- NOTE | 2019-02-07 17:30 | NUR ---
Pt. here from ICU via WC and placed in bed.. Rated HOUSE at 7/10, denies further complaints.
--- NOTE | 2019-02-07 18:45 | PDOC ---
PROGRESS NOTES Assessment 1. Traumatic brain injury with right sided subdural hematoma and right frontal contusion. He appears stable. He remains neurologically intact. 2. Posttraumatic stress disorder and anxiety-he does not claim this is any worse than his baseline. 3. Sleep apnea 4. Diminished hearing right ear due to the trauma, fracture and hemorrhage in the ear canal Plan 1. The hemorrhage is of similar size and at this point does not require surgical intervention. 2. He should continue all of his home medicines that he is using for posttraumatic stress disorder. 3. He should continue using his CPAP machine for the sleep apnea. 4. He may need to work with ENT as an outpatient with respect to the diminished hearing in the right ear. Subjective The pain is somewhat controlled with the medicines they are giving me. I still cannot hear very well out of my right ear. Objective Vital Signs Date Time Temp Pulse Resp B/P (MAP) Pulse Ox O2 Delivery O2 Flow Rate FiO2 02/07/19 17:00 61 19 131/61 (84) 95 Room Air 02/07/19 16:00 98.0 98.0 02/06/19 12:00 2.0 Intake and Output 02/07/19 07:00 Intake Total 2480 ml Output Total 2400 ml Balance 80 ml Intake Oral 490 ml IV Total 1990 ml Output Urine Total 2400 ml PHYSICAL EXAM He was alert, awake and cooperative. Speech was fluent and clear. He had a good fund of recent and remote knowledge. Attention and concentration was intact. Cranial nerves II through XII are intact except for diminished hearing in the right ear. Muscle bulk and tone was normal. Power was full and symmetric in arms and legs. Coordination testing with finger to nose and fine motor movements was intact. Sensation was intact to light touch. Review of Relevant I have reviewed the following items bekah (where applicable) has been applied. Labs Laboratory Tests Test 02/05/19 23:05 02/05/19 23:45 02/06/19 11:45 02/06/19 16:02 White Blood Count 6.1 x10^3/uL (4.0-11.0) Red Blood Count 4.60 x10^6/uL (4.30-5.70) Hemoglobin 13.6 g/dL (13.0-17.5) Hematocrit 39.4 % (39.0-53.0) Mean Corpuscular Volume 86 fL (79-100) Mean Corpuscular Hemoglobin 30 pg (25-35) Mean Corpuscular Hemoglobin Concent 35 g/dL (31-37) Red Cell Distribution Width 13.3 % (11.5-14.5) Platelet Count 178 x10^3/uL (140-400) Neutrophils (%) (Auto) 67 % (31-73) Lymphocytes (%) (Auto) 17 % (24-48) Monocytes (%) (Auto) 15 % (0-9) Eosinophils (%) (Auto) 0 % (0-3) Basophils (%) (Auto) 1 % (0-3) Neutrophils # (Auto) 4.1 x10^3/uL (1.8-7.7) Lymphocytes # (Auto) 1.0 x10^3/uL (1.0-4.8) Monocytes # (Auto) 0.9 x10^3/uL (0.0-1.1) Eosinophils # (Auto) 0.0 x10^3/uL (0.0-0.7) Basophils # (Auto) 0.0 x10^3/uL (0.0-0.2) Prothrombin Time 13.8 SEC (11.7-14.0) Prothromb Time International Ratio 1.1 (0.8-1.1) Activated Partial Thromboplast Time 40 SEC (24-38) Sodium Level 137 mmol/L (136-145) Potassium Level 3.3 mmol/L (3.5-5.1) Chloride Level 101 mmol/L (98-107) Carbon Dioxide Level 24 mmol/L (21-32) Anion Gap 12 (6-14) Blood Urea Nitrogen 6 mg/dL (8-26) Creatinine 0.9 mg/dL (0.7-1.3) Estimated GFR (Cockcroft-Gault) 93.0 BUN/Creatinine Ratio 7 (6-20) Glucose Level 123 mg/dL (70-99) Lactic Acid Level 0.9 mmol/L (0.4-2.0) Calcium Level 8.3 mg/dL (8.5-10.1) Magnesium Level 1.7 mg/dL (1.8-2.4) Total Bilirubin 0.4 mg/dL (0.2-1.0) Aspartate Amino Transf (AST/SGOT) 35 U/L (15-37) Alanine Aminotransferase (ALT/SGPT) 63 U/L (16-63) Alkaline Phosphatase 69 U/L (46-116) Creatine Kinase 360 U/L (39-308) Creatine Kinase MB (Mass) 1.0 ng/mL (0.0-3.6) Creatine Kinase MB Relative Index 0.3 % (0-4) Troponin I Quantitative < 0.017 ng/mL (0.000-0.055) < 0.017 ng/mL (0.000-0.055) Total Protein 6.9 g/dL (6.4-8.2) Albumin 3.6 g/dL (3.4-5.0) Albumin/Globulin Ratio 1.1 (1.0-1.7) Ethyl Alcohol Level < 10 mg/dL (0-10) Urine Collection Type Unknown Urine Color Yellow Urine Clarity Clear Urine pH 6.5 Urine Specific Adams 1.010 Urine Protein Negative mg/dL (NEG-TRACE) Urine Glucose (UA) Negative mg/dL (NEG) Urine Ketones (Stick) 15 mg/dL (NEG) Urine Blood Negative (NEG) Urine Nitrite Negative (NEG) Urine Bilirubin Negative (NEG) Urine Urobilinogen Dipstick 1.0 mg/dL (0.2 mg/dL) Urine Leukocyte Esterase Negative (NEG) Urine RBC 1-2 /HPF (0-2) Urine WBC 0 /HPF (0-4) Urine Bacteria 0 /HPF (0-FEW) Urine Mucus Mod /LPF Urine Opiates Screen Neg (NEG) Urine Methadone Screen Neg (NEG) Urine Barbiturates Neg (NEG) Urine Phencyclidine Screen Neg (NEG) Urine Amphetamine/Methamphetamine Neg (NEG) Urine Benzodiazepines Screen Neg (NEG) Urine Cocaine Screen Neg (NEG) Urine Cannabinoids Screen Neg (NEG) Urine Ethyl Alcohol Neg (NEG) Influenza Type A Antigen Negative (NEGATIVE) Influenza Type B Antigen Negative (NEGATIVE) Test 02/07/19 07:16 White Blood Count 8.2 x10^3/uL (4.0-11.0) Red Blood Count 4.37 x10^6/uL (4.30-5.70) Hemoglobin 12.8 g/dL (13.0-17.5) Hematocrit 37.8 % (39.0-53.0) Mean Corpuscular Volume 86 fL (79-100) Mean Corpuscular Hemoglobin 29 pg (25-35) Mean Corpuscular Hemoglobin Concent 34 g/dL (31-37) Red Cell Distribution Width 13.3 % (11.5-14.5) Platelet Count 190 x10^3/uL (140-400) Neutrophils (%) (Auto) 68 % (31-73) Lymphocytes (%) (Auto) 21 % (24-48) Monocytes (%) (Auto) 11 % (0-9) Eosinophils (%) (Auto) 0 % (0-3) Basophils (%) (Auto) 0 % (0-3) Neutrophils # (Auto) 5.6 x10^3/uL (1.8-7.7) Lymphocytes # (Auto) 1.7 x10^3/uL (1.0-4.8) Monocytes # (Auto) 0.9 x10^3/uL (0.0-1.1) Eosinophils # (Auto) 0.0 x10^3/uL (0.0-0.7) Basophils # (Auto) 0.0 x10^3/uL (0.0-0.2) Sodium Level 137 mmol/L (136-145) Potassium Level 4.5 mmol/L (3.5-5.1) Chloride Level 102 mmol/L (98-107) Carbon Dioxide Level 24 mmol/L (21-32) Anion Gap 11 (6-14) Blood Urea Nitrogen 5 mg/dL (8-26) Creatinine 0.7 mg/dL (0.7-1.3) Estimated GFR (Cockcroft-Gault) 124.3 BUN/Creatinine Ratio 7 (6-20) Glucose Level 115 mg/dL (70-99) Calcium Level 8.5 mg/dL (8.5-10.1) Total Bilirubin 0.4 mg/dL (0.2-1.0) Aspartate Amino Transf (AST/SGOT) 25 U/L (15-37) Alanine Aminotransferase (ALT/SGPT) 57 U/L (16-63) Alkaline Phosphatase 61 U/L (46-116) Total Protein 6.9 g/dL (6.4-8.2) Albumin 3.2 g/dL (3.4-5.0) Albumin/Globulin Ratio 0.9 (1.0-1.7) Laboratory Tests Test 02/07/19 07:16 White Blood Count 8.2 x10^3/uL (4.0-11.0) Red Blood Count 4.37 x10^6/uL (4.30-5.70) Hemoglobin 12.8 g/dL (13.0-17.5) Hematocrit 37.8 % (39.0-53.0) Mean Corpuscular Volume 86 fL (79-100) Mean Corpuscular Hemoglobin 29 pg (25-35) Mean Corpuscular Hemoglobin Concent 34 g/dL (31-37) Red Cell Distribution Width 13.3 % (11.5-14.5) Platelet Count 190 x10^3/uL (140-400) Neutrophils (%) (Auto) 68 % (31-73) Lymphocytes (%) (Auto) 21 % (24-48) Monocytes (%) (Auto) 11 % (0-9) Eosinophils (%) (Auto) 0 % (0-3) Basophils (%) (Auto) 0 % (0-3) Neutrophils # (Auto) 5.6 x10^3/uL (1.8-7.7) Lymphocytes # (Auto) 1.7 x10^3/uL (1.0-4.8) Monocytes # (Auto) 0.9 x10^3/uL (0.0-1.1) Eosinophils # (Auto) 0.0 x10^3/uL (0.0-0.7) Basophils # (Auto) 0.0 x10^3/uL (0.0-0.2) Sodium Level 137 mmol/L (136-145) Potassium Level 4.5 mmol/L (3.5-5.1) Chloride Level 102 mmol/L (98-107) Carbon Dioxide Level 24 mmol/L (21-32) Anion Gap 11 (6-14) Blood Urea Nitrogen 5 mg/dL (8-26) Creatinine 0.7 mg/dL (0.7-1.3) Estimated GFR (Cockcroft-Gault) 124.3 BUN/Creatinine Ratio 7 (6-20) Glucose Level 115 mg/dL (70-99) Calcium Level 8.5 mg/dL (8.5-10.1) Total Bilirubin 0.4 mg/dL (0.2-1.0) Aspartate Amino Transf (AST/SGOT) 25 U/L (15-37) Alanine Aminotransferase (ALT/SGPT) 57 U/L (16-63) Alkaline Phosphatase 61 U/L (46-116) Total Protein 6.9 g/dL (6.4-8.2) Albumin 3.2 g/dL (3.4-5.0) Albumin/Globulin Ratio 0.9 (1.0-1.7) Microbiology 02/05/19 Blood Culture - Preliminary, Resulted NO GROWTH AFTER 1 DAY Medications Current Medications Acetaminophen (Tylenol Supp) 650 mg 1X ONCE WI Last administered on 02/05/19at 23:48; Start 02/05/19 at 23:15; Stop 02/06/19 at 00:06; Status DC Sodium Chloride 1,000 ml @ 1,000 mls/hr 1X ONCE IV Last administered on 02/05/19at 23:20; Start 02/06/19 at 00:30; Stop 02/06/19 at 01:29; Status DC Piperacillin Sod/ Tazobactam Sod 4.5 gm/Sodium Chloride 100 ml @ 200 mls/hr 1X ONCE IV Last administered on 02/06/19at 00:13; Start 02/06/19 at 00:30; Stop 02/06/19 at 00:59; Status DC Magnesium Sulfate 50 ml @ 25 mls/hr 1X ONCE IV Last administered on 02/06/19at 00:14; Start 02/06/19 at 00:30; Stop 02/06/19 at 02:29; Status DC Potassium Chloride/Water 100 ml @ 100 mls/hr Q1H IV Last administered on 02/06/19at 01:35; Start 02/06/19 at 01:00; Stop 02/06/19 at 02:59; Status DC Lorazepam (Ativan Inj) 2 mg STK-MED ONCE .ROUTE ; Start 02/05/19 at 23:46; Stop 02/05/19 at 23:47; Status DC Ondansetron HCl (Zofran) 4 mg PRN Q8HRS PRN IV NAUSEA/VOMITING 1ST CHOICE; Start 02/06/19 at 00:00; Stop 02/06/19 at 23:59; Status DC Fentanyl Citrate (Fentanyl 2ml Vial) 50 mcg PRN Q2HRS PRN IV SEVERE PAIN 7-10 Last administered on 02/07/19at 09:05; Start 02/06/19 at 00:00 Lorazepam (Ativan Inj) 1 mg PRN Q4HRS PRN IVP ANXIETY / AGITATION; Start 02/06/19 at 00:15; Stop 02/06/19 at 11:34; Status DC Acetaminophen (Tylenol) 650 mg PRN Q6HRS PRN PO Headaches, Temp > 101.5'; Start 02/06/19 at 11:30 Lorazepam (Ativan Inj) 0.5 mg PRN Q6HRS PRN IV ANXIETY / AGITATION; Start 02/06/19 at 11:30 Ondansetron HCl (Zofran) 4 mg PRN Q6HRS PRN IV NAUSEA/VOMITING; Start 02/06/19 at 11:30 Prochlorperazine Edisylate (Compazine) 5 mg PRN Q6HRS PRN IV NAUSEA/VOMITING 2ND CHOICE; Start 02/06/19 at 11:30 Calcium Carbonate/ Glycine (Tums) 500 mg PRN Q3HRS PRN PO HEARTBURN / GAS; Start 02/06/19 at 11:30 Famotidine (Pepcid Vial) 20 mg BID IVP Last administered on 02/07/19at 08:57; Start 02/06/19 at 21:00 Sodium Chloride (Normal Saline Flush) 3 ml QSHIFT PRN IV AFTER MEDS AND BLOOD DRAWS; Start 02/06/19 at 11:30 Potassium Chloride/Sodium Chloride 1,000 ml @ 100 mls/hr Q10H IV Last adminis tered on 02/07/19at 09:56; Start 02/06/19 at 12:00 Docusate Sodium (Colace) 100 mg BID PO Last administered on 02/07/19at 08:57; Start 02/06/19 at 21:00 Lactulose (Lactulose) 20 gm PRN Q12HR PRN PO CONSTIPATION; Start 02/06/19 at 11:30 Bisacodyl (Dulcolax Supp) 10 mg PRN DAILY PRN [place] CONSTIPATION; Start 02/06/19 at 11:30 Azithromycin 500 mg/Sodium Chloride 250 ml @ 250 mls/hr Q24H IV Last administered on 02/07/19at 11:56; Start 02/06/19 at 12:00 Guaifenesin (MUCINEX ER with DM) 1 tab BID PO Last administered on 02/07/19 08:57; Start 02/06/19 at 12:00 Albuterol/ Ipratropium (Duoneb) 3 ml RTQID NEB Last administered on 02/07/19 16:18; Start 02/06/19 at 12:00 Levetiracetam (Keppra) 500 mg BID PO Last administered on 02/07/19 08:57; Start 02/06/19 at 13:45 Acetaminophen (Tylenol) 650 mg PRN Q4HRS PRN PO PAIN Last administered on 02/07/19 17:48; Start 02/06/19 at 13:45 Potassium Chloride (Klor-Con) 40 meq 1X ONCE PO Last administered on 02/06/19 23:33; Start 02/06/19 at 22:30; Stop 02/06/19 at 22:31; Status DC Budesonide (Pulmicort) 0.5 mg RTBID NEB Last administered on 02/07/19 09:09; Start 02/07/19 at 08:00 Ceftriaxone Sodium (Rocephin) 2 gm Q12HR IVP Last administered on 02/07/19 16:38; Start 02/07/19 at 14:30 Active Scripts Active Reported Amitriptyline Hcl 25 Mg Tablet 1 Tab PO QHS Propranolol Hcl 10 Mg Tablet 1 Tab PO TID PRN PRN Nexium Capsule (Esomeprazole Magnesium) 40 Mg Capsule. 1 Cap PO DAILY Cymbalta (Duloxetine Hcl) 30 Mg Capsule. 1 Cap PO DAILY Vitals/I & O Vital Sign - Last 24 Hours 02/06/19 02/06/19 02/06/19 02/06/19 19:00 20:00 20:07 20:37 Temp 100.8 100.8 Pulse 76 66 Resp 27 22 23 B/P (MAP) 134/77 (96) 127/79 (95) Pulse Ox 96 97 97 94 O2 Delivery Room Air Room Air Room Air Room Air 02/06/19 02/06/19 02/06/19 02/06/19 21:00 21:09 22:00 23:00 Pulse 69 68 75 Resp 23 26 20 24 B/P (MAP) 143/75 (97) 131/72 (91) 128/67 (87) O2 Delivery Room Air Room Air Room Air Room Air 02/06/19 02/07/19 02/07/19 02/07/19 23:36 00:00 00:18 01:00 Temp 99.9 99.9 Pulse 67 73 Resp 24 20 20 23 B/P (MAP) 119/61 (80) 118/59 (78) Pulse Ox 96 O2 Delivery Room Air Room Air Room Air Room Air 02/07/19 02/07/19 02/07/19 02/07/19 02:00 03:00 04:00 05:00 Temp 98.4 98.4 Pulse 58 61 62 59 Resp 23 24 22 20 B/P (MAP) 124/75 (91) 114/65 (81) 114/73 (87) 127/65 (85) Pulse Ox 97 O2 Delivery Room Air Room Air Room Air Room Air 02/07/19 02/07/19 02/07/19 02/07/19 06:00 06:18 06:49 07:00 Pulse 90 55 Resp 18 22 29 22 B/P (MAP) 112/68 (83) 117/64 (81) Pulse Ox 100 95 O2 Delivery Room Air Room Air Ventilator Room Air 02/07/19 02/07/19 02/07/19 02/07/19 08:00 08:00 09:00 09:05 Temp 97.9 97.9 Pulse 59 64 Resp 21 22 21 B/P (MAP) 122/65 (84) 116/68 (84) Pulse Ox 94 93 93 O2 Delivery Room Air Room Air Room Air Room Air 02/07/19 02/07/19 02/07/19 02/07/19 09:09 09:50 10:00 11:00 Pulse 68 76 Resp 18 18 16 B/P (MAP) 113/56 (75) 118/71 (87) Pulse Ox 94 94 95 O2 Delivery Room Air Room Air Room Air Room Air 02/07/19 02/07/19 02/07/19 02/07/19 12:00 12:00 12:03 13:00 Temp 98.1 98.1 Pulse 64 76 Resp 22 25 B/P (MAP) 119/75 (90) 119/66 (83) Pulse Ox 96 95 94 O2 Delivery Room Air Room Air Room Air Room Air 02/07/19 02/07/19 02/07/19 02/07/19 14:00 15:00 16:00 16:00 Temp 98.0 98.0 Pulse 62 60 62 Resp 20 25 23 B/P (MAP) 115/69 (84) 122/71 (88) 106/71 (83) Pulse Ox 94 95 96 O2 Delivery Room Air Room Air Room Air Room Air 02/07/19 02/07/19 16:19 17:00 Pulse 61 Resp 19 B/P (MAP) 131/61 (84) Pulse Ox 95 95 O2 Delivery Room Air Room Air Intake and Output 02/06/19 02/06/19 02/07/19 15:00 23:00 07:00 Intake Total 240 ml 250 ml 1990 ml Output Total 500 ml 0 ml 1900 ml Balance -260 ml 250 ml 90 ml TOMASA DREW MD Feb 07, 2019 18:45
--- NOTE | 2019-02-07 20:06 | PDOC ---
PROGRESS NOTES Subjective Subjective patient seen at 1315 awake, alert, less headache Objective Objective Vital Signs Date Time Temp Pulse Resp B/P (MAP) Pulse Ox O2 Delivery O2 Flow Rate FiO2 02/07/19 19:22 Room Air 02/07/19 17:00 61 19 131/61 (84) 95 02/07/19 16:00 98.0 98.0 02/06/19 12:00 2.0 Intake and Output 02/07/19 07:00 Intake Total 2480 ml Output Total 2400 ml Balance 80 ml Intake Oral 490 ml IV Total 1990 ml Output Urine Total 2400 ml Physical Exam General: Alert, Oriented X3, Cooperative Neuro: Normal speech, Other (SIMENTAL, neuro intact) Assessment Assessment Problems Medical Problems: (1) Bronchitis Status: Acute Plan Plan of Care Traumatic brain injury with right sided subdural hematoma and right frontal contusion. He appears stable. no surgery recommended will follow Comment Review of Relevant I have reviewed the following items bekah (where applicable) has been applied. Labs Laboratory Tests Test 02/05/19 23:05 02/05/19 23:45 02/06/19 11:45 02/06/19 16:02 White Blood Count 6.1 x10^3/uL (4.0-11.0) Red Blood Count 4.60 x10^6/uL (4.30-5.70) Hemoglobin 13.6 g/dL (13.0-17.5) Hematocrit 39.4 % (39.0-53.0) Mean Corpuscular Volume 86 fL (79-100) Mean Corpuscular Hemoglobin 30 pg (25-35) Mean Corpuscular Hemoglobin Concent 35 g/dL (31-37) Red Cell Distribution Width 13.3 % (11.5-14.5) Platelet Count 178 x10^3/uL (140-400) Neutrophils (%) (Auto) 67 % (31-73) Lymphocytes (%) (Auto) 17 % (24-48) Monocytes (%) (Auto) 15 % (0-9) Eosinophils (%) (Auto) 0 % (0-3) Basophils (%) (Auto) 1 % (0-3) Neutrophils # (Auto) 4.1 x10^3/uL (1.8-7.7) Lymphocytes # (Auto) 1.0 x10^3/uL (1.0-4.8) Monocytes # (Auto) 0.9 x10^3/uL (0.0-1.1) Eosinophils # (Auto) 0.0 x10^3/uL (0.0-0.7) Basophils # (Auto) 0.0 x10^3/uL (0.0-0.2) Prothrombin Time 13.8 SEC (11.7-14.0) Prothromb Time International Ratio 1.1 (0.8-1.1) Activated Partial Thromboplast Time 40 SEC (24-38) Sodium Level 137 mmol/L (136-145) Potassium Level 3.3 mmol/L (3.5-5.1) Chloride Level 101 mmol/L (98-107) Carbon Dioxide Level 24 mmol/L (21-32) Anion Gap 12 (6-14) Blood Urea Nitrogen 6 mg/dL (8-26) Creatinine 0.9 mg/dL (0.7-1.3) Estimated GFR (Cockcroft-Gault) 93.0 BUN/Creatinine Ratio 7 (6-20) Glucose Level 123 mg/dL (70-99) Lactic Acid Level 0.9 mmol/L (0.4-2.0) Calcium Level 8.3 mg/dL (8.5-10.1) Magnesium Level 1.7 mg/dL (1.8-2.4) Total Bilirubin 0.4 mg/dL (0.2-1.0) Aspartate Amino Transf (AST/SGOT) 35 U/L (15-37) Alanine Aminotransferase (ALT/SGPT) 63 U/L (16-63) Alkaline Phosphatase 69 U/L (46-116) Creatine Kinase 360 U/L (39-308) Creatine Kinase MB (Mass) 1.0 ng/mL (0.0-3.6) Creatine Kinase MB Relative Index 0.3 % (0-4) Troponin I Quantitative < 0.017 ng/mL (0.000-0.055) < 0.017 ng/mL (0.000-0.055) Total Protein 6.9 g/dL (6.4-8.2) Albumin 3.6 g/dL (3.4-5.0) Albumin/Globulin Ratio 1.1 (1.0-1.7) Ethyl Alcohol Level < 10 mg/dL (0-10) Urine Collection Type Unknown Urine Color Yellow Urine Clarity Clear Urine pH 6.5 Urine Specific [place] 1.010 Urine Protein Negative mg/dL (NEG-TRACE) Urine Glucose (UA) Negative mg/dL (NEG) Urine Ketones (Stick) 15 mg/dL (NEG) Urine Blood Negative (NEG) Urine Nitrite Negative (NEG) Urine Bilirubin Negative (NEG) Urine Urobilinogen Dipstick 1.0 mg/dL (0.2 mg/dL) Urine Leukocyte Esterase Negative (NEG) Urine RBC 1-2 /HPF (0-2) Urine WBC 0 /HPF (0-4) Urine Bacteria 0 /HPF (0-FEW) Urine Mucus Mod /LPF Urine Opiates Screen Neg (NEG) Urine Methadone Screen Neg (NEG) Urine Barbiturates Neg (NEG) Urine Phencyclidine Screen Neg (NEG) Urine Amphetamine/Methamphetamine Neg (NEG) Urine Benzodiazepines Screen Neg (NEG) Urine Cocaine Screen Neg (NEG) Urine Cannabinoids Screen Neg (NEG) Urine Ethyl Alcohol Neg (NEG) Influenza Type A Antigen Negative (NEGATIVE) Influenza Type B Antigen Negative (NEGATIVE) Test 02/07/19 07:16 White Blood Count 8.2 x10^3/uL (4.0-11.0) Red Blood Count 4.37 x10^6/uL (4.30-5.70) Hemoglobin 12.8 g/dL (13.0-17.5) Hematocrit 37.8 % (39.0-53.0) Mean Corpuscular Volume 86 fL (79-100) Mean Corpuscular Hemoglobin 29 pg (25-35) Mean Corpuscular Hemoglobin Concent 34 g/dL (31-37) Red Cell Distribution Width 13.3 % (11.5-14.5) Platelet Count 190 x10^3/uL (140-400) Neutrophils (%) (Auto) 68 % (31-73) Lymphocytes (%) (Auto) 21 % (24-48) Monocytes (%) (Auto) 11 % (0-9) Eosinophils (%) (Auto) 0 % (0-3) Basophils (%) (Auto) 0 % (0-3) Neutrophils # (Auto) 5.6 x10^3/uL (1.8-7.7) Lymphocytes # (Auto) 1.7 x10^3/uL (1.0-4.8) Monocytes # (Auto) 0.9 x10^3/uL (0.0-1.1) Eosinophils # (Auto) 0.0 x10^3/uL (0.0-0.7) Basophils # (Auto) 0.0 x10^3/uL (0.0-0.2) Sodium Level 137 mmol/L (136-145) Potassium Level 4.5 mmol/L (3.5-5.1) Chloride Level 102 mmol/L (98-107) Carbon Dioxide Level 24 mmol/L (21-32) Anion Gap 11 (6-14) Blood Urea Nitrogen 5 mg/dL (8-26) Creatinine 0.7 mg/dL (0.7-1.3) Estimated GFR (Cockcroft-Gault) 124.3 BUN/Creatinine Ratio 7 (6-20) Glucose Level 115 mg/dL (70-99) Calcium Level 8.5 mg/dL (8.5-10.1) Total Bilirubin 0.4 mg/dL (0.2-1.0) Aspartate Amino Transf (AST/SGOT) 25 U/L (15-37) Alanine Aminotransferase (ALT/SGPT) 57 U/L (16-63) Alkaline Phosphatase 61 U/L (46-116) Total Protein 6.9 g/dL (6.4-8.2) Albumin 3.2 g/dL (3.4-5.0) Albumin/Globulin Ratio 0.9 (1.0-1.7) Laboratory Tests Test 02/07/19 07:16 White Blood Count 8.2 x10^3/uL (4.0-11.0) Red Blood Count 4.37 x10^6/uL (4.30-5.70) Hemoglobin 12.8 g/dL (13.0-17.5) Hematocrit 37.8 % (39.0-53.0) Mean Corpuscular Volume 86 fL (79-100) Mean Corpuscular Hemoglobin 29 pg (25-35) Mean Corpuscular Hemoglobin Concent 34 g/dL (31-37) Red Cell Distribution Width 13.3 % (11.5-14.5) Platelet Count 190 x10^3/uL (140-400) Neutrophils (%) (Auto) 68 % (31-73) Lymphocytes (%) (Auto) 21 % (24-48) Monocytes (%) (Auto) 11 % (0-9) Eosinophils (%) (Auto) 0 % (0-3) Basophils (%) (Auto) 0 % (0-3) Neutrophils # (Auto) 5.6 x10^3/uL (1.8-7.7) Lymphocytes # (Auto) 1.7 x10^3/uL (1.0-4.8) Monocytes # (Auto) 0.9 x10^3/uL (0.0-1.1) Eosinophils # (Auto) 0.0 x10^3/uL (0.0-0.7) Basophils # (Auto) 0.0 x10^3/uL (0.0-0.2) Sodium Level 137 mmol/L (136-145) Potassium Level 4.5 mmol/L (3.5-5.1) Chloride Level 102 mmol/L (98-107) Carbon Dioxide Level 24 mmol/L (21-32) Anion Gap 11 (6-14) Blood Urea Nitrogen 5 mg/dL (8-26) Creatinine 0.7 mg/dL (0.7-1.3) Estimated GFR (Cockcroft-Gault) 124.3 BUN/Creatinine Ratio 7 (6-20) Glucose Level 115 mg/dL (70-99) Calcium Level 8.5 mg/dL (8.5-10.1) Total Bilirubin 0.4 mg/dL (0.2-1.0) Aspartate Amino Transf (AST/SGOT) 25 U/L (15-37) Alanine Aminotransferase (ALT/SGPT) 57 U/L (16-63) Alkaline Phosphatase 61 U/L (46-116) Total Protein 6.9 g/dL (6.4-8.2) Albumin 3.2 g/dL (3.4-5.0) Albumin/Globulin Ratio 0.9 (1.0-1.7) Microbiology 02/05/19 Blood Culture - Preliminary, Resulted NO GROWTH AFTER 1 DAY Medications Current Medications Acetaminophen (Tylenol Supp) 650 mg 1X ONCE ID Last administered on 02/05/19at 23:48; Start 02/05/19 at 23:15; Stop 02/06/19 at 00:06; Status DC Sodium Chloride 1,000 ml @ 1,000 mls/hr 1X ONCE IV Last administered on 02/05/19at 23:20; Start 02/06/19 at 00:30; Stop 02/06/19 at 01:29; Status DC Piperacillin Sod/ Tazobactam Sod 4.5 gm/Sodium Chloride 100 ml @ 200 mls/hr 1X ONCE IV Last administered on 02/06/19at 00:13; Start 02/06/19 at 00:30; Stop 02/06/19 at 00:59; Status DC Magnesium Sulfate 50 ml @ 25 mls/hr 1X ONCE IV Last administered on 02/06/19at 00:14; Start 02/06/19 at 00:30; Stop 02/06/19 at 02:29; Status DC Potassium Chloride/Water 100 ml @ 100 mls/hr Q1H IV Last administered on 02/06/19at 01:35; Start 02/06/19 at 01:00; Stop 02/06/19 at 02:59; Status DC Lorazepam (Ativan Inj) 2 mg STK-MED ONCE .ROUTE ; Start 02/05/19 at 23:46; Stop 02/05/19 at 23:47; Status DC Ondansetron HCl (Zofran) 4 mg PRN Q8HRS PRN IV NAUSEA/VOMITING 1ST CHOICE; Start 02/06/19 at 00:00; Stop 02/06/19 at 23:59; Status DC Fentanyl Citrate (Fentanyl 2ml Vial) 50 mcg PRN Q2HRS PRN IV SEVERE PAIN 7-10 Last administered on 02/07/19at 19:22; Start 02/06/19 at 00:00 Lorazepam (Ativan Inj) 1 mg PRN Q4HRS PRN IVP ANXIETY / AGITATION; Start 02/06/19 at 00:15; Stop 02/06/19 at 11:34; Status DC Acetaminophen (Tylenol) 650 mg PRN Q6HRS PRN PO Headaches, Temp > 101.5'; Start 02/06/19 at 11:30 Lorazepam (Ativan Inj) 0.5 mg PRN Q6HRS PRN IV ANXIETY / AGITATION; Start 02/06/19 at 11:30 Ondansetron HCl (Zofran) 4 mg PRN Q6HRS PRN IV NAUSEA/VOMITING; Start 02/06/19 at 11:30 Prochlorperazine Edisylate (Compazine) 5 mg PRN Q6HRS PRN IV NAUSEA/VOMITING 2ND CHOICE; Start 02/06/19 at 11:30 Calcium Carbonate/ Glycine (Tums) 500 mg PRN Q3HRS PRN PO HEARTBURN / GAS; Sta rt 02/06/19 at 11:30 Famotidine (Pepcid Vial) 20 mg BID IVP Last administered on 02/07/19 08:57; Start 02/06/19 at 21:00 Sodium Chloride (Normal Saline Flush) 3 ml QSHIFT PRN IV AFTER MEDS AND BLOOD DRAWS; Start 02/06/19 at 11:30 Potassium Chloride/Sodium Chloride 1,000 ml @ 100 mls/hr Q10H IV Last administered on 02/07/19 09:56; Start 02/06/19 at 12:00 Docusate Sodium (Colace) 100 mg BID PO Last administered on 02/07/19 08:57; Start 02/06/19 at 21:00 Lactulose (Lactulose) 20 gm PRN Q12HR PRN PO CONSTIPATION; Start 02/06/19 at 11:30 Bisacodyl (Dulcolax Supp) 10 mg PRN DAILY PRN ID CONSTIPATION; Start 02/06/19 at 11:30 Azithromycin 500 mg/Sodium Chloride 250 ml @ 250 mls/hr Q24H IV Last administered on 02/07/19 11:56; Start 02/06/19 at 12:00 Guaifenesin (MUCINEX ER with DM) 1 tab BID PO Last administered on 02/07/19 08:57; Start 02/06/19 at 12:00 Albuterol/ Ipratropium (Duoneb) 3 ml RTQID NEB Last administered on 02/07/19 16:18; Start 02/06/19 at 12:00 Levetiracetam (Keppra) 500 mg BID PO Last administered on 02/07/19 08:57; Start 02/06/19 at 13:45 Acetaminophen (Tylenol) 650 mg PRN Q4HRS PRN PO PAIN Last administered on 02/07/19 17:48; Start 02/06/19 at 13:45 Potassium Chloride (Klor-Con) 40 meq 1X ONCE PO Last administered on 02/06/19 23:33; Start 02/06/19 at 22:30; Stop 02/06/19 at 22:31; Status DC Budesonide (Pulmicort) 0.5 mg RTBID NEB Last administered on 02/07/19at 09:09; Start 02/07/19 at 08:00 Ceftriaxone Sodium (Rocephin) 2 gm Q12HR IVP Last administered on 02/07/19at 16:38; Start 02/07/19 at 14:30 Active Scripts Active Reported Amitriptyline Hcl 25 Mg Tablet 1 Tab PO QHS Propranolol Hcl 10 Mg Tablet 1 Tab PO TID PRN PRN Nexium Capsule (Esomeprazole Magnesium) 40 Mg Capsule.dr 1 Cap PO DAILY Cymbalta (Duloxetine Hcl) 30 Mg Capsule.dr 1 Cap PO DAILY Vitals/I & O Vital Sign - Last 24 Hours 02/06/19 02/06/19 02/06/19 02/06/19 20:07 20:37 21:00 21:09 Pulse 69 Resp 23 23 26 B/P (MAP) 143/75 (97) Pulse Ox 97 94 O2 Delivery Room Air Room Air Room Air Room Air 02/06/19 02/06/19 02/06/19 02/07/19 22:00 23:00 23:36 00:00 Temp 99.9 99.9 Pulse 68 75 67 Resp 20 24 24 20 B/P (MAP) 131/72 (91) 128/67 (87) 119/61 (80) Pulse Ox 96 O2 Delivery Room Air Room Air Room Air Room Air 02/07/19 02/07/19 02/07/19 02/07/19 00:18 01:00 02:00 03:00 Pulse 73 58 61 Resp 20 23 23 24 B/P (MAP) 118/59 (78) 124/75 (91) 114/65 (81) O2 Delivery Room Air Room Air Room Air Room Air 02/07/19 02/07/19 02/07/19 02/07/19 04:00 05:00 06:00 06:18 Temp 98.4 98.4 Pulse 62 59 90 Resp 22 20 18 22 B/P (MAP) 114/73 (87) 127/65 (85) 112/68 (83) Pulse Ox 97 O2 Delivery Room Air Room Air Room Air Room Air 02/07/19 02/07/19 02/07/19 10/27/19 06:49 07:00 08:00 08:00 Temp 97.9 97.9 Pulse 55 59 Resp 29 22 21 B/P (MAP) 117/64 (81) 122/65 (84) Pulse Ox 100 95 94 O2 Delivery Ventilator Room Air Room Air Room Air 02/07/19 02/07/19 02/07/19 02/07/19 09:00 09:05 09:09 09:50 Pulse 64 Resp 22 21 18 B/P (MAP) 116/68 (84) Pulse Ox 93 93 94 O2 Delivery Room Air Room Air Room Air Room Air 02/07/19 02/07/19 02/07/19 02/07/19 10:00 11:00 12:00 12:00 Temp 98.1 98.1 Pulse 68 76 64 Resp 18 16 22 B/P (MAP) 113/56 (75) 118/71 (87) 119/75 (90) Pulse Ox 94 95 96 O2 Delivery Room Air Room Air Room Air Room Air 02/07/19 02/07/19 02/07/19 02/07/19 12:03 13:00 14:00 15:00 Pulse 76 62 60 Resp 25 20 25 B/P (MAP) 119/66 (83) 115/69 (84) 122/71 (88) Pulse Ox 95 94 94 95 O2 Delivery Room Air Room Air Room Air Room Air 02/07/19 02/07/19 02/07/19 02/07/19 16:00 16:00 16:19 17:00 Temp 98.0 98.0 Pulse 62 61 Resp 23 19 B/P (MAP) 106/71 (83) 131/61 (84) Pulse Ox 96 95 95 O2 Delivery Room Air Room Air Room Air Room Air 02/07/19 19:22 O2 Delivery Room Air Intake and Output 02/06/19 02/06/19 02/07/19 15:00 23:00 07:00 Intake Total 240 ml 250 ml 1990 ml Output Total 500 ml 0 ml 1900 ml Balance -260 ml 250 ml 90 ml JULI STANFORD MD Feb 07, 2019 20:06
[2019-02-08] MEDS: ACETAMINOPHEN 325 MG TABLET. PO PRN (03:17)
[2019-02-08] MEDS: fentaNYL PF VIAL 100 MCG/2 ML VIAL IV PRN ×4 (03:21→21:50)
[2019-02-08 03:27] VITALS: BP 120/72
[2019-02-08 04:11] LABS: BASO % 1 % (0-3); EOS % 0 % (0-3); HEMATOCRIT 39.1 % (39.0-53.0); LYMPH # 2.1 x10^3/uL (1.0-4.8); LYMPH % 29 % (24-48); MEAN CORPUSCULAR HEMOGLOBIN 29 pg (25-35); MEAN CORPUSCULAR HGB CONC 33 g/dL (31-37); MEAN CORPUSCULAR VOLUME 87 fL (79-100); MONO # 0.6 x10^3/uL (0.0-1.1); MONO % 8 % (0-9); NEUT # 4.5 x10^3/uL (1.8-7.7); NEUT % 62 % (31-73); PLATELET COUNT 216 x10^3/uL (140-400); RED CELL DISTRIBUTION WIDTH 13.5 % (11.5-14.5); WHITE BLOOD COUNT 7.3 x10^3/uL (4.0-11.0)
[2019-02-08 05:06] LABS: CALCIUM 9.3 mg/dL (8.5-10.1); CREATININE 0.7 mg/dL (0.7-1.3); GFR 124.3
[2019-02-08 07:00] VITALS: BP 122/69
[2019-02-08] MEDS: BUDESONIDE 0.5 MG/2 ML NEBU. NEB SCH ×2 (07:34→20:51)
[2019-02-08] MEDS: IPRATRPIUM/ALBUTEROL 0.5/2.5MG 3 ML NEBU. NEB SCH ×4 (08:00→20:46)
[2019-02-08] MEDS ORDERED: LEVE500T56 PO (08:12)
[2019-02-08] MEDS ORDERED: BUDE180A IH (08:12)
[2019-02-08] MEDS ORDERED: ALBU2.5V8 IH (08:12)
[2019-02-08] MEDS ORDERED: ACETAMINOPHEN 500 MG TABLET PO PRN (08:15)
[2019-02-08] MEDS ORDERED: ONDANSETRON PF 4 MG/2 ML VIAL. IVP PRN (08:15)
[2019-02-08] MEDS: DOCUSATE SODIUM 100 MG CAPSULE. PO SCH ×2 (09:00→21:43)
--- NOTE | 2019-02-08 09:22 | PDOC ---
PULMONARY PROGRESS NOTES Subjective PT FEELS BETTER COUGH IS STILL PROBLEMATIC Vitals Vital Signs Date Time Temp Pulse Resp B/P (MAP) Pulse Ox O2 Delivery O2 Flow Rate FiO2 02/08/19 08:00 Room Air 02/08/19 07:34 98 02/08/19 03:27 98.7 70 18 120/72 (88) 98.7 ROS: No Nausea, No Chest Pain, No Abdominal Pain Lungs: Clear Cardiovascular: S1 Abdomen: Soft Neuro Exam: Alert Extremities: No Edema Skin: Warm Labs Laboratory Tests Test 02/06/19 11:45 02/06/19 16:02 02/07/19 07:16 02/08/19 02:50 Troponin I Quantitative < 0.017 ng/mL (0.000-0.055) Influenza Type A Antigen Negative (NEGATIVE) Influenza Type B Antigen Negative (NEGATIVE) White Blood Count 8.2 x10^3/uL (4.0-11.0) 7.3 x10^3/uL (4.0-11.0) Red Blood Count 4.37 x10^6/uL (4.30-5.70) 4.50 x10^6/uL (4.30-5.70) Hemoglobin 12.8 g/dL (13.0-17.5) 13.0 g/dL (13.0-17.5) Hematocrit 37.8 % (39.0-53.0) 39.1 % (39.0-53.0) Mean Corpuscular Volume 86 fL (79-100) 87 fL (79-100) Mean Corpuscular Hemoglobin 29 pg (25-35) 29 pg (25-35) Mean Corpuscular Hemoglobin Concent 34 g/dL (31-37) 33 g/dL (31-37) Red Cell Distribution Width 13.3 % (11.5-14.5) 13.5 % (11.5-14.5) Platelet Count 190 x10^3/uL (140-400) 216 x10^3/uL (140-400) Neutrophils (%) (Auto) 68 % (31-73) 62 % (31-73) Lymphocytes (%) (Auto) 21 % (24-48) 29 % (24-48) Monocytes (%) (Auto) 11 % (0-9) 8 % (0-9) Eosinophils (%) (Auto) 0 % (0-3) 0 % (0-3) Basophils (%) (Auto) 0 % (0-3) 1 % (0-3) Neutrophils # (Auto) 5.6 x10^3/uL (1.8-7.7) 4.5 x10^3/uL (1.8-7.7) Lymphocytes # (Auto) 1.7 x10^3/uL (1.0-4.8) 2.1 x10^3/uL (1.0-4.8) Monocytes # (Auto) 0.9 x10^3/uL (0.0-1.1) 0.6 x10^3/uL (0.0-1.1) Eosinophils # (Auto) 0.0 x10^3/uL (0.0-0.7) 0.0 x10^3/uL (0.0-0.7) Basophils # (Auto) 0.0 x10^3/uL (0.0-0.2) 0.0 x10^3/uL (0.0-0.2) Sodium Level 137 mmol/L (136-145) 142 mmol/L (136-145) Potassium Level 4.5 mmol/L (3.5-5.1) 4.0 mmol/L (3.5-5.1) Chloride Level 102 mmol/L (98-107) 107 mmol/L (98-107) Carbon Dioxide Level 24 mmol/L (21-32) 25 mmol/L (21-32) Anion Gap 11 (6-14) 10 (6-14) Blood Urea Nitrogen 5 mg/dL (8-26) 6 mg/dL (8-26) Creatinine 0.7 mg/dL (0.7-1.3) 0.7 mg/dL (0.7-1.3) Estimated GFR (Cockcroft-Gault) 124.3 124.3 BUN/Creatinine Ratio 7 (6-20) Glucose Level 115 mg/dL (70-99) 98 mg/dL (70-99) Calcium Level 8.5 mg/dL (8.5-10.1) 9.3 mg/dL (8.5-10.1) Total Bilirubin 0.4 mg/dL (0.2-1.0) Aspartate Amino Transf (AST/SGOT) 25 U/L (15-37) Alanine Aminotransferase (ALT/SGPT) 57 U/L (16-63) Alkaline Phosphatase 61 U/L (46-116) Total Protein 6.9 g/dL (6.4-8.2) Albumin 3.2 g/dL (3.4-5.0) Albumin/Globulin Ratio 0.9 (1.0-1.7) Laboratory Tests Test 02/08/19 02:50 White Blood Count 7.3 x10^3/uL (4.0-11.0) Red Blood Count 4.50 x10^6/uL (4.30-5.70) Hemoglobin 13.0 g/dL (13.0-17.5) Hematocrit 39.1 % (39.0-53.0) Mean Corpuscular Volume 87 fL (79-100) Mean Corpuscular Hemoglobin 29 pg (25-35) Mean Corpuscular Hemoglobin Concent 33 g/dL (31-37) Red Cell Distribution Width 13.5 % (11.5-14.5) Platelet Count 216 x10^3/uL (140-400) Neutrophils (%) (Auto) 62 % (31-73) Lymphocytes (%) (Auto) 29 % (24-48) Monocytes (%) (Auto) 8 % (0-9) Eosinophils (%) (Auto) 0 % (0-3) Basophils (%) (Auto) 1 % (0-3) Neutrophils # (Auto) 4.5 x10^3/uL (1.8-7.7) Lymphocytes # (Auto) 2.1 x10^3/uL (1.0-4.8) Monocytes # (Auto) 0.6 x10^3/uL (0.0-1.1) Eosinophils # (Auto) 0.0 x10^3/uL (0.0-0.7) Basophils # (Auto) 0.0 x10^3/uL (0.0-0.2) Sodium Level 142 mmol/L (136-145) Potassium Level 4.0 mmol/L (3.5-5.1) Chloride Level 107 mmol/L (98-107) Carbon Dioxide Level 25 mmol/L (21-32) Anion Gap 10 (6-14) Blood Urea Nitrogen 6 mg/dL (8-26) Creatinine 0.7 mg/dL (0.7-1.3) Estimated GFR (Cockcroft-Gault) 124.3 Glucose Level 98 mg/dL (70-99) Calcium Level 9.3 mg/dL (8.5-10.1) Medications Active Scripts Medications Dose Route/Sig Max Daily Dose Days Date Category Pulmicort Flexhaler (Budesonide) 180 Mcg Aer.pow.ba 2 Puff IH BID 02/08/19 Rx Proair Hfa Inhaler (Albuterol Sulfate) 8.5 Gm Hfa.aer.ad 2 Puff IH PRN Q4-6HRS PRN 21 02/08/19 Rx Keppra (Levetiracetam) 500 Mg Tablet 500 Mg PO BID 02/08/19 Rx Amitriptyline Hcl 25 Mg Tablet 1 Tab PO QHS 02/06/19 Reported Propranolol Hcl 10 Mg Tablet 1 Tab PO TID PRN PRN 02/06/19 Reported Nexium Capsule (Esomeprazole Magnesium) 40 Mg Capsule.dr 1 Cap PO DAILY 02/06/19 Reported Cymbalta (Duloxetine Hcl) 30 Mg Capsule.dr 1 Cap PO DAILY 02/06/19 Reported Impression . IMPRESSION: 1. COUGH SYNCOPE 2. Acute bronchitis. 3. Acute bronchospasm, SEC TO AECOPD 4. Tobacco habituation. 5. Obstructive sleep apnea-hypopnea syndrome. 6. Syncope. 7. Subdural hematoma and skull fracture. Plan . STEROIDS O2 BD AVOID CAFFEINE NEURO NOTE NOTED OLIMPIA HARRIS MD Feb 08, 2019 09:22
[2019-02-08] MEDS: guaiFENesin DM 600/30MG 1 TAB TAB.ER.12H PO SCH ×2 (09:24→21:43)
[2019-02-08] MEDS: levETIRAcetam 500 MG TABLET PO SCH ×2 (09:24→21:43)
[2019-02-08] MEDS: cefTRIAXone IV Push 2 GM VIAL. IVP SCH (09:33)
[2019-02-08] MEDS: FAMOTIDINE 20 MG TABLET. PO SCH ×2 (09:48→21:43)
--- NOTE | 2019-02-08 10:29 | PDOC ---
PROGRESS NOTES Chief Complaint Chief Complaint SMall rt frontal subdural hematoma after traumatic fall HEad concussion SZ post head concussion Occ smoker Atypical viral infection, lungs headache GAit instability sec to above RT EAC bleeding from RT temporal fracture History of Present Illness History of Present Illness TRAnsferred out of ICU 02/08- non surgical, small SUbdural bleed STill dizzy and headache Dried blood on gown from blood drips from his RT EAC NO ENT avail HEre Started on keppra by neuro - SZ post head concussion Pt lives 2.5 hrs from here - willl try to set up with his own ENT ON abx per ID - aziithro etc,.recommends brain mri - i agree PLAN: Brain MRI today Add PT OT Still headache, gait unsteady, hold dc today SLightly sleepy from keppra - expected finding RX on chart Dw and RN Tati Vitals Vitals Vital Signs Date Time Temp Pulse Resp B/P (MAP) Pulse Ox O2 Delivery O2 Flow Rate FiO2 02/08/19 10:22 98 Room Air 02/08/19 07:00 97.4 73 18 122/69 (86) 97.4 Physical Exam General: Alert, Oriented X3, Cooperative Heart: Regular rate, Normal S1, Normal S2 Lungs: Clear Abdomen: Normal bowel sounds, Soft Extremities: No clubbing, No cyanosis Skin: No rashes Labs LABS Laboratory Tests Test 02/08/19 02:50 White Blood Count 7.3 x10^3/uL (4.0-11.0) Red Blood Count 4.50 x10^6/uL (4.30-5.70) Hemoglobin 13.0 g/dL (13.0-17.5) Hematocrit 39.1 % (39.0-53.0) Mean Corpuscular Volume 87 fL (79-100) Mean Corpuscular Hemoglobin 29 pg (25-35) Mean Corpuscular Hemoglobin Concent 33 g/dL (31-37) Red Cell Distribution Width 13.5 % (11.5-14.5) Platelet Count 216 x10^3/uL (140-400) Neutrophils (%) (Auto) 62 % (31-73) Lymphocytes (%) (Auto) 29 % (24-48) Monocytes (%) (Auto) 8 % (0-9) Eosinophils (%) (Auto) 0 % (0-3) Basophils (%) (Auto) 1 % (0-3) Neutrophils # (Auto) 4.5 x10^3/uL (1.8-7.7) Lymphocytes # (Auto) 2.1 x10^3/uL (1.0-4.8) Monocytes # (Auto) 0.6 x10^3/uL (0.0-1.1) Eosinophils # (Auto) 0.0 x10^3/uL (0.0-0.7) Basophils # (Auto) 0.0 x10^3/uL (0.0-0.2) Sodium Level 142 mmol/L (136-145) Potassium Level 4.0 mmol/L (3.5-5.1) Chloride Level 107 mmol/L (98-107) Carbon Dioxide Level 25 mmol/L (21-32) Anion Gap 10 (6-14) Blood Urea Nitrogen 6 mg/dL (8-26) Creatinine 0.7 mg/dL (0.7-1.3) Estimated GFR (Cockcroft-Gault) 124.3 Glucose Level 98 mg/dL (70-99) Calcium Level 9.3 mg/dL (8.5-10.1) Review of Systems Review of Systems headache, dizzy, gait unsteady, rest 14 pt neg, still some rt ear/temporal bone discomfort Assessment and Plan Assessmemt and Plan Problems Medical Problems: (1) Bronchitis Status: Acute Comment Review of Relevant I have reviewed the following items bekah (where applicable) has been applied. Labs Laboratory Tests Test 02/06/19 11:45 02/06/19 16:02 02/07/19 07:16 02/08/19 02:50 Troponin I Quantitative < 0.017 ng/mL (0.000-0.055) Influenza Type A Antigen Negative (NEGATIVE) Influenza Type B Antigen Negative (NEGATIVE) White Blood Count 8.2 x10^3/uL (4.0-11.0) 7.3 x10^3/uL (4.0-11.0) Red Blood Count 4.37 x10^6/uL (4.30-5.70) 4.50 x10^6/uL (4.30-5.70) Hemoglobin 12.8 g/dL (13.0-17.5) 13.0 g/dL (13.0-17.5) Hematocrit 37.8 % (39.0-53.0) 39.1 % (39.0-53.0) Mean Corpuscular Volume 86 fL (79-100) 87 fL (79-100) Mean Corpuscular Hemoglobin 29 pg (25-35) 29 pg (25-35) Mean Corpuscular Hemoglobin Concent 34 g/dL (31-37) 33 g/dL (31-37) Red Cell Distribution Width 13.3 % (11.5-14.5) 13.5 % (11.5-14.5) Platelet Count 190 x10^3/uL (140-400) 216 x10^3/uL (140-400) Neutrophils (%) (Auto) 68 % (31-73) 62 % (31-73) Lymphocytes (%) (Auto) 21 % (24-48) 29 % (24-48) Monocytes (%) (Auto) 11 % (0-9) 8 % (0-9) Eosinophils (%) (Auto) 0 % (0-3) 0 % (0-3) Basophils (%) (Auto) 0 % (0-3) 1 % (0-3) Neutrophils # (Auto) 5.6 x10^3/uL (1.8-7.7) 4.5 x10^3/uL (1.8-7.7) Lymphocytes # (Auto) 1.7 x10^3/uL (1.0-4.8) 2.1 x10^3/uL (1.0-4.8) Monocytes # (Auto) 0.9 x10^3/uL (0.0-1.1) 0.6 x10^3/uL (0.0-1.1) Eosinophils # (Auto) 0.0 x10^3/uL (0.0-0.7) 0.0 x10^3/uL (0.0-0.7) Basophils # (Auto) 0.0 x10^3/uL (0.0-0.2) 0.0 x10^3/uL (0.0-0.2) Sodium Level 137 mmol/L (136-145) 142 mmol/L (136-145) Potassium Level 4.5 mmol/L (3.5-5.1) 4.0 mmol/L (3.5-5.1) Chloride Level 102 mmol/L (98-107) 107 mmol/L (98-107) Carbon Dioxide Level 24 mmol/L (21-32) 25 mmol/L (21-32) Anion Gap 11 (6-14) 10 (6-14) Blood Urea Nitrogen 5 mg/dL (8-26) 6 mg/dL (8-26) Creatinine 0.7 mg/dL (0.7-1.3) 0.7 mg/dL (0.7-1.3) Estimated GFR (Cockcroft-Gault) 124.3 124.3 BUN/Creatinine Ratio 7 (6-20) Glucose Level 115 mg/dL (70-99) 98 mg/dL (70-99) Calcium Level 8.5 mg/dL (8.5-10.1) 9.3 mg/dL (8.5-10.1) Total Bilirubin 0.4 mg/dL (0.2-1.0) Aspartate Amino Transf (AST/SGOT) 25 U/L (15-37) Alanine Aminotransferase (ALT/SGPT) 57 U/L (16-63) Alkaline Phosphatase 61 U/L (46-116) Total Protein 6.9 g/dL (6.4-8.2) Albumin 3.2 g/dL (3.4-5.0) Albumin/Globulin Ratio 0.9 (1.0-1.7) Laboratory Tests Test 02/08/19 02:50 White Blood Count 7.3 x10^3/uL (4.0-11.0) Red Blood Count 4.50 x10^6/uL (4.30-5.70) Hemoglobin 13.0 g/dL (13.0-17.5) Hematocrit 39.1 % (39.0-53.0) Mean Corpuscular Volume 87 fL (79-100) Mean Corpuscular Hemoglobin 29 pg (25-35) Mean Corpuscular Hemoglobin Concent 33 g/dL (31-37) Red Cell Distribution Width 13.5 % (11.5-14.5) Platelet Count 216 x10^3/uL (140-400) Neutrophils (%) (Auto) 62 % (31-73) Lymphocytes (%) (Auto) 29 % (24-48) Monocytes (%) (Auto) 8 % (0-9) Eosinophils (%) (Auto) 0 % (0-3) Basophils (%) (Auto) 1 % (0-3) Neutrophils # (Auto) 4.5 x10^3/uL (1.8-7.7) Lymphocytes # (Auto) 2.1 x10^3/uL (1.0-4.8) Monocytes # (Auto) 0.6 x10^3/uL (0.0-1.1) Eosinophils # (Auto) 0.0 x10^3/uL (0.0-0.7) Basophils # (Auto) 0.0 x10^3/uL (0.0-0.2) Sodium Level 142 mmol/L (136-145) Potassium Level 4.0 mmol/L (3.5-5.1) Chloride Level 107 mmol/L (98-107) Carbon Dioxide Level 25 mmol/L (21-32) Anion Gap 10 (6-14) Blood Urea Nitrogen 6 mg/dL (8-26) Creatinine 0.7 mg/dL (0.7-1.3) Estimated GFR (Cockcroft-Gault) 124.3 Glucose Level 98 mg/dL (70-99) Calcium Level 9.3 mg/dL (8.5-10.1) Microbiology 02/05/19 Blood Culture - Preliminary, Resulted NO GROWTH AFTER 2 DAYS Medications Current Medications Acetaminophen (Tylenol Supp) 650 mg 1X ONCE [place] Last administered on 02/05/19at 23:48; Start 02/05/19 at 23:15; Stop 02/06/19 at 00:06; Status DC Sodium Chloride 1,000 ml @ 1,000 mls/hr 1X ONCE IV Last administered on 02/05/19at 23:20; Start 02/06/19 at 00:30; Stop 02/06/19 at 01:29; Status DC Piperacillin Sod/ Tazobactam Sod 4.5 gm/Sodium Chloride 100 ml @ 200 mls/hr 1X ONCE IV Last administered on 02/06/19at 00:13; Start 02/06/19 at 00:30; Stop 02/06/19 at 00:59; Status DC Magnesium Sulfate 50 ml @ 25 mls/hr 1X ONCE IV Last administered on 02/06/19at 00:14; Start 02/06/19 at 00:30; Stop 02/06/19 at 02:29; Status DC Potassium Chloride/Water 100 ml @ 100 mls/hr Q1H IV Last administered on 02/06/19at 01:35; Start 02/06/19 at 01:00; Stop 02/06/19 at 02:59; Status DC Lorazepam (Ativan Inj) 2 mg STK-MED ONCE .ROUTE ; Start 02/05/19 at 23:46; Stop 02/05/19 at 23:47; Status DC Ondansetron HCl (Zofran) 4 mg PRN Q8HRS PRN IV NAUSEA/VOMITING 1ST CHOICE; Start 02/06/19 at 00:00; Stop 02/06/19 at 23:59; Status DC Fentanyl Citrate (Fentanyl 2ml Vial) 50 mcg PRN Q2HRS PRN IV SEVERE PAIN 7-10 Last administered on 02/08/19at 09:28; Start 02/06/19 at 00:00 Lorazepam (Ativan Inj) 1 mg PRN Q4HRS PRN IVP ANXIETY / AGITATION; Start at 00:15; Stop 02/06/19 at 11:34; Status DC Acetaminophen (Tylenol) 650 mg PRN Q6HRS PRN PO Headaches, Temp > 101.5'; Start 02/06/19 at 11:30 Lorazepam (Ativan Inj) 0.5 mg PRN Q6HRS PRN IV ANXIETY / AGITATION; Start 02/06/19 at 11:30 Ondansetron HCl (Zofran) 4 mg PRN Q6HRS PRN IV NAUSEA/VOMITING; Start 02/06/19 at 11:30 Prochlorperazine Edisylate (Compazine) 5 mg PRN Q6HRS PRN IV NAUSEA/VOMITING 2ND CHOICE; Start 02/06/19 at 11:30 Calcium Carbonate/ Glycine (Tums) 500 mg PRN Q3HRS PRN PO HEARTBURN / GAS; Start 02/06/19 at 11:30 Famotidine (Pepcid Vial) 20 mg BID IVP Last administered on 02/07/19at 21:27; Start 02/06/19 at 21:00; Stop 02/08/19 at 09:40; Status DC Sodium Chloride (Normal Saline Flush) 3 ml QSHIFT PRN IV AFTER MEDS AND BLOOD DRAWS; Start 02/06/19 at 11:30 Potassium Chloride/Sodium Chloride 1,000 ml @ 100 mls/hr Q10H IV Last administered on 02/08/19 09:26; Start 02/06/19 at 12:00 Docusate Sodium (Colace) 100 mg BID PO Last administered on 02/07/19 08:57; Start 02/06/19 at 21:00 Lactulose (Lactulose) 20 gm PRN Q12HR PRN PO CONSTIPATION; Start 02/06/19 at 11:30 Bisacodyl (Dulcolax Supp) 10 mg PRN DAILY PRN [place] CONSTIPATION; Start 02/06/19 at 11:30 Azithromycin 500 mg/Sodium Chloride 250 ml @ 250 mls/hr Q24H IV Last administered on 02/07/19 11:56; Start 02/06/19 at 12:00 Guaifenesin (MUCINEX ER with DM) 1 tab BID PO Last administered on 02/08/19 09:24; Start 02/06/19 at 12:00 Albuterol/ Ipratropium (Duoneb) 3 ml RTQID NEB Last administered on 02/07/19 20:20; Start 02/06/19 at 12:00 Levetiracetam (Keppra) 500 mg BID PO Last administered on 02/08/19 09:24; Start 02/06/19 at 13:45 Acetaminophen (Tylenol) 650 mg PRN Q4HRS PRN PO PAIN Last administered on 02/08/19 03:17; Start 02/06/19 at 13:45 Potassium Chloride (Klor-Con) 40 meq 1X ONCE PO Last administered on 02/06/19 23:33; Start 02/06/19 at 22:30; Stop 02/06/19 at 22:31; Status DC Budesonide (Pulmicort) 0.5 mg RTBID NEB Last administered on 02/08/19 07:34; Start 02/07/19 at 08:00 Ceftriaxone Sodium (Rocephin) 2 gm Q12HR IVP Last administered on 02/08/19 09:33; Start 02/07/19 at 14:30 Acetaminophen (Tylenol) 500 mg PRN Q6HRS PRN PO MILD PAIN / TEMP; Start 02/08/19 at 08:15 Ondansetron HCl (Zofran) 4 mg PRN Q6HRS PRN IVP NAUSEA/VOMITING; Start 02/08/19 at 08:15 Famotidine (Pepcid) 20 mg BID PO Last administered on 02/08/19at 09:48; Start 02/08/19 at 10:00 Active Scripts Active Pulmicort Flexhaler (Budesonide) 180 Mcg Aer.pow.ba 2 Puff IH BID Proair Hfa Inhaler (Albuterol Sulfate) 8.5 Gm Hfa.aer.ad 2 Puff IH PRN Q4-6HRS PRN 21 Days Keppra (Levetiracetam) 500 Mg Tablet 500 Mg PO BID Reported Amitriptyline Hcl 25 Mg Tablet 1 Tab PO QHS Propranolol Hcl 10 Mg Tablet 1 Tab PO TID PRN PRN Nexium Capsule (Esomeprazole Magnesium) 40 Mg Capsule.dr 1 Cap PO DAILY Cymbalta (Duloxetine Hcl) 30 Mg Capsule.dr 1 Cap PO DAILY Vitals/I & O Vital Sign - Last 24 Hours 02/07/19 02/07/19 02/07/19 02/07/19 11:00 12:00 12:00 12:03 Temp 98.1 98.1 Pulse 76 64 Resp 16 22 B/P (MAP) 118/71 (87) 119/75 (90) Pulse Ox 95 96 95 O2 Delivery Room Air Room Air Room Air Room Air 02/07/19 02/07/19 02/07/19 02/07/19 13:00 14:00 15:00 16:00 Temp 98.0 98.0 Pulse 76 62 60 62 Resp 25 20 25 23 B/P (MAP) 119/66 (83) 115/69 (84) 122/71 (88) 106/71 (83) Pulse Ox 94 94 95 96 O2 Delivery Room Air Room Air Room Air Room Air 02/07/19 02/07/19 02/07/19 02/07/19 16:00 16:19 17:00 19:22 Pulse 61 Resp 19 B/P (MAP) 131/61 (84) Pulse Ox 95 95 O2 Delivery Room Air Room Air Room Air Room Air 02/07/19 02/07/19 02/07/19 02/07/19 19:25 19:52 19:55 20:15 Temp 98.5 98.5 Pulse 55 Resp 18 B/P (MAP) 113/65 (81) Pulse Ox 95 98 O2 Delivery Room Air Room Air Room Air Room Air 02/07/19 02/07/19 02/07/19 02/08/19 22:54 23:24 23:33 03:21 Temp 98.5 98.5 Pulse 74 Resp 18 B/P (MAP) 115/76 (89) Pulse Ox 94 O2 Delivery Room Air Room Air Room Air Room Air 02/08/19 02/08/19 02/08/19 02/08/19 03:27 03:51 07:00 07:34 Temp 98.7 97.4 98.7 97.4 Pulse 70 73 Resp 18 18 B/P (MAP) 120/72 (88) 122/69 (86) Pulse Ox 95 95 98 O2 Delivery Room Air Room Air Room Air Room Air 02/08/19 02/08/19 02/08/19 08:00 09:28 10:22 Pulse Ox 98 98 O2 Delivery Room Air Room Air Room Air Intake and Output 02/07/19 02/07/19 02/08/19 15:00 23:00 07:00 Intake Total 1000 ml 300 ml 980 ml Output Total 900 ml 900 ml Balance 100 ml -600 ml 980 ml RONIT GRANT MD Feb 08, 2019 10:29
[2019-02-08 11:00] VITALS: BP 112/66
--- NOTE | 2019-02-08 11:02 | PDOC ---
Infectious Disease Note Subjective Subjective Doing ok. HOUSE some better No F/C/n and eating some Cough is still there but better ROS ROS o/w neg Vital Sign Vital Signs Vital Signs Date Time Temp Pulse Resp B/P (MAP) Pulse Ox O2 Delivery O2 Flow Rate FiO2 02/08/19 10:22 98 Room Air 02/08/19 07:00 97.4 73 18 122/69 (86) 97.4 Physical Exam PHYSICAL EXAM GENERAL: The patient is propped up in bed, alert, no apparent distress. HEENT: Pupils equally round and reactive. Oropharynx pink and moist. No lacerations or abrasions noted on the scalp. NECK: Supple, full range of motion. LUNGS: Clear to auscultation. HEART: S1, S2. ABDOMEN: Soft, nontender with bowel sounds present. EXTREMITIES: No gross edema or cyanosis. SKIN: Warm to touch. No signs of rash. NEUROLOGIC: Alert and oriented x 3. Moves all extremities. EOMI. Labs Lab Laboratory Tests Test 02/08/19 02:50 White Blood Count 7.3 x10^3/uL (4.0-11.0) Red Blood Count 4.50 x10^6/uL (4.30-5.70) Hemoglobin 13.0 g/dL (13.0-17.5) Hematocrit 39.1 % (39.0-53.0) Mean Corpuscular Volume 87 fL (79-100) Mean Corpuscular Hemoglobin 29 pg (25-35) Mean Corpuscular Hemoglobin Concent 33 g/dL (31-37) Red Cell Distribution Width 13.5 % (11.5-14.5) Platelet Count 216 x10^3/uL (140-400) Neutrophils (%) (Auto) 62 % (31-73) Lymphocytes (%) (Auto) 29 % (24-48) Monocytes (%) (Auto) 8 % (0-9) Eosinophils (%) (Auto) 0 % (0-3) Basophils (%) (Auto) 1 % (0-3) Neutrophils # (Auto) 4.5 x10^3/uL (1.8-7.7) Lymphocytes # (Auto) 2.1 x10^3/uL (1.0-4.8) Monocytes # (Auto) 0.6 x10^3/uL (0.0-1.1) Eosinophils # (Auto) 0.0 x10^3/uL (0.0-0.7) Basophils # (Auto) 0.0 x10^3/uL (0.0-0.2) Sodium Level 142 mmol/L (136-145) Potassium Level 4.0 mmol/L (3.5-5.1) Chloride Level 107 mmol/L (98-107) Carbon Dioxide Level 25 mmol/L (21-32) Anion Gap 10 (6-14) Blood Urea Nitrogen 6 mg/dL (8-26) Creatinine 0.7 mg/dL (0.7-1.3) Estimated GFR (Cockcroft-Gault) 124.3 Glucose Level 98 mg/dL (70-99) Calcium Level 9.3 mg/dL (8.5-10.1) Micro Microbiology 02/05/19 Blood Culture - Preliminary, Resulted NO GROWTH AFTER 2 DAYS Objective Assessment Fever. influenza neg, may likely be reactive to trauma, infection not ruled out - better Acute bronchitits Skull fracture Subdural hematoma/intraparenchymal hemorrhage following a fall Syncopal episode Tobacco dependence Plan Plan of Care azithromycin x 3 days done today Sputum culture pending Avoid nasal tubes/swabs and blowing nose D/c Rocephin change to Cefdinir f/u cultures Monitor closely Neuro and NS following. No surgical plans D/w nursing BLAIRE QUINTANILLA MD Feb 08, 2019 11:02
[2019-02-08] MEDS ORDERED: CEFD300C PO (11:31)
--- NOTE | 2019-02-08 11:33 | NUR ---
SW following for discharge planning. Chart reviewed, discussed with RN. Pt was a transfer from ICU. Pt is from home, has a TBI. Pt having an MRI today, ID consulted. RN advised no SW needs, possible discharge home today with self care. SW will continue to follow for any discharge planning needs.
--- NOTE | 2019-02-08 12:04 | PDOC ---
PROGRESS NOTES Assessment Problems Medical Problems: (1) Bronchitis Status: Acute Traumatic brain injury with right sided subdural hematoma and right frontal contusion. Fracture of petrous portion of the right temporal bone extending to right external auditory canal, with hearing loss from that. Posttraumatic stress disorder and anxiety Sleep apnea Other issues: fever, bronchitis, tobacco dependence Neurosurgery following, no need for surgery Plan Patient was expecting an MRI today as discussed by neurosurgery, I went ahead and ordered it Rehabilitation modalities Outpatient ENT consultation Aim for discharging the next day or 2, but he may need inpatient rehab, PT and OT have not seen yet Subjective He denies significant headache Objective Vital Signs Date Time Temp Pulse Resp B/P (MAP) Pulse Ox O2 Delivery O2 Flow Rate FiO2 02/08/19 10:22 98 Room Air 02/08/19 07:00 97.4 73 18 122/69 (86) 97.4 Intake and Output 02/08/19 07:00 Intake Total 2280 ml Output Total 1800 ml Balance 480 ml Intake Oral 2280 ml Output Urine Total 1800 ml # Voids 5 PHYSICAL EXAM Alert. Oriented to time, place and person. PERRL. EOMI. CN: Hearing loss in the right ear, otherwise no focal findings. Muscle tone: normal. Muscle strength: 5/5 DTR: 2+ Plantar reflex: [ ] Gait: not examined in bed. Sensory exam: no abnormal findings. No cerebellar signs elicited. Review of Relevant I have reviewed the following items bekah (where applicable) has been applied. Labs Laboratory Tests Test 02/06/19 16:02 02/07/19 07:16 02/08/19 02:50 Influenza Type A Antigen Negative (NEGATIVE) Influenza Type B Antigen Negative (NEGATIVE) White Blood Count 8.2 x10^3/uL (4.0-11.0) 7.3 x10^3/uL (4.0-11.0) Red Blood Count 4.37 x10^6/uL (4.30-5.70) 4.50 x10^6/uL (4.30-5.70) Hemoglobin 12.8 g/dL (13.0-17.5) 13.0 g/dL (13.0-17.5) Hematocrit 37.8 % (39.0-53.0) 39.1 % (39.0-53.0) Mean Corpuscular Volume 86 fL (79-100) 87 fL (79-100) Mean Corpuscular Hemoglobin 29 pg (25-35) 29 pg (25-35) Mean Corpuscular Hemoglobin Concent 34 g/dL (31-37) 33 g/dL (31-37) Red Cell Distribution Width 13.3 % (11.5-14.5) 13.5 % (11.5-14.5) Platelet Count 190 x10^3/uL (140-400) 216 x10^3/uL (140-400) Neutrophils (%) (Auto) 68 % (31-73) 62 % (31-73) Lymphocytes (%) (Auto) 21 % (24-48) 29 % (24-48) Monocytes (%) (Auto) 11 % (0-9) 8 % (0-9) Eosinophils (%) (Auto) 0 % (0-3) 0 % (0-3) Basophils (%) (Auto) 0 % (0-3) 1 % (0-3) Neutrophils # (Auto) 5.6 x10^3/uL (1.8-7.7) 4.5 x10^3/uL (1.8-7.7) Lymphocytes # (Auto) 1.7 x10^3/uL (1.0-4.8) 2.1 x10^3/uL (1.0-4.8) Monocytes # (Auto) 0.9 x10^3/uL (0.0-1.1) 0.6 x10^3/uL (0.0-1.1) Eosinophils # (Auto) 0.0 x10^3/uL (0.0-0.7) 0.0 x10^3/uL (0.0-0.7) Basophils # (Auto) 0.0 x10^3/uL (0.0-0.2) 0.0 x10^3/uL (0.0-0.2) Sodium Level 137 mmol/L (136-145) 142 mmol/L (136-145) Potassium Level 4.5 mmol/L (3.5-5.1) 4.0 mmol/L (3.5-5.1) Chloride Level 102 mmol/L (98-107) 107 mmol/L (98-107) Carbon Dioxide Level 24 mmol/L (21-32) 25 mmol/L (21-32) Anion Gap 11 (6-14) 10 (6-14) Blood Urea Nitrogen 5 mg/dL (8-26) 6 mg/dL (8-26) Creatinine 0.7 mg/dL (0.7-1.3) 0.7 mg/dL (0.7-1.3) Estimated GFR (Cockcroft-Gault) 124.3 124.3 BUN/Creatinine Ratio 7 (6-20) Glucose Level 115 mg/dL (70-99) 98 mg/dL (70-99) Calcium Level 8.5 mg/dL (8.5-10.1) 9.3 mg/dL (8.5-10.1) Total Bilirubin 0.4 mg/dL (0.2-1.0) Aspartate Amino Transf (AST/SGOT) 25 U/L (15-37) Alanine Aminotransferase (ALT/SGPT) 57 U/L (16-63) Alkaline Phosphatase 61 U/L (46-116) Total Protein 6.9 g/dL (6.4-8.2) Albumin 3.2 g/dL (3.4-5.0) Albumin/Globulin Ratio 0.9 (1.0-1.7) Laboratory Tests Test 02/08/19 02:50 White Blood Count 7.3 x10^3/uL (4.0-11.0) Red Blood Count 4.50 x10^6/uL (4.30-5.70) Hemoglobin 13.0 g/dL (13.0-17.5) Hematocrit 39.1 % (39.0-53.0) Mean Corpuscular Volume 87 fL (79-100) Mean Corpuscular Hemoglobin 29 pg (25-35) Mean Corpuscular Hemoglobin Concent 33 g/dL (31-37) Red Cell Distribution Width 13.5 % (11.5-14.5) Platelet Count 216 x10^3/uL (140-400) Neutrophils (%) (Auto) 62 % (31-73) Lymphocytes (%) (Auto) 29 % (24-48) Monocytes (%) (Auto) 8 % (0-9) Eosinophils (%) (Auto) 0 % (0-3) Basophils (%) (Auto) 1 % (0-3) Neutrophils # (Auto) 4.5 x10^3/uL (1.8-7.7) Lymphocytes # (Auto) 2.1 x10^3/uL (1.0-4.8) Monocytes # (Auto) 0.6 x10^3/uL (0.0-1.1) Eosinophils # (Auto) 0.0 x10^3/uL (0.0-0.7) Basophils # (Auto) 0.0 x10^3/uL (0.0-0.2) Sodium Level 142 mmol/L (136-145) Potassium Level 4.0 mmol/L (3.5-5.1) Chloride Level 107 mmol/L (98-107) Carbon Dioxide Level 25 mmol/L (21-32) Anion Gap 10 (6-14) Blood Urea Nitrogen 6 mg/dL (8-26) Creatinine 0.7 mg/dL (0.7-1.3) Estimated GFR (Cockcroft-Gault) 124.3 Glucose Level 98 mg/dL (70-99) Calcium Level 9.3 mg/dL (8.5-10.1) Microbiology 02/05/19 Blood Culture - Preliminary, Resulted NO GROWTH AFTER 2 DAYS Medications Current Medications Acetaminophen (Tylenol Supp) 650 mg 1X ONCE OR Last administered on 02/05/19at 23:48; Start 02/05/19 at 23:15; Stop 02/06/19 at 00:06; Status DC Sodium Chloride 1,000 ml @ 1,000 mls/hr 1X ONCE IV Last administered on 02/05/19at 23:20; Start 02/06/19 at 00:30; Stop 02/06/19 at 01:29; Status DC Piperacillin Sod/ Tazobactam Sod 4.5 gm/Sodium Chloride 100 ml @ 200 mls/hr 1X ONCE IV Last administered on 02/06/19at 00:13; Start 02/06/19 at 00:30; Stop 02/06/19 at 00:59; Status DC Magnesium Sulfate 50 ml @ 25 mls/hr 1X ONCE IV Last administered on 02/06/19at 00:14; Start 02/06/19 at 00:30; Stop 02/06/19 at 02:29; Status DC Potassium Chloride/Water 100 ml @ 100 mls/hr Q1H IV Last administered on 02/06/19at 01:35; Start 02/06/19 at 01:00; Stop 02/06/19 at 02:59; Status DC Lorazepam (Ativan Inj) 2 mg STK-MED ONCE .ROUTE ; Start 02/05/19 at 23:46; Stop 02/05/19 at 23:47; Status DC Ondansetron HCl (Zofran) 4 mg PRN Q8HRS PRN IV NAUSEA/VOMITING 1ST CHOICE; Start 02/06/19 at 00:00; Stop 02/06/19 at 23:59; Status DC Fentanyl Citrate (Fentanyl 2ml Vial) 50 mcg PRN Q2HRS PRN IV SEVERE PAIN 7-10 Last administered on 02/08/19at 09:28; Start 02/06/19 at 00:00 Lorazepam (Ativan Inj) 1 mg PRN Q4HRS PRN IVP ANXIETY / AGITATION; Start 02/06/19 at 00:15; Stop 02/06/19 at 11:34; Status DC Acetaminophen (Tylenol) 650 mg PRN Q6HRS PRN PO Headaches, Temp > 101.5'; Start 02/06/19 at 11:30; Stop 02/08/19 at 11:13; Status DC Lorazepam (Ativan Inj) 0.5 mg PRN Q6HRS PRN IV ANXIETY / AGITATION; Start 02/06/19 at 11:30 Ondansetron HCl (Zofran) 4 mg PRN Q6HRS PRN IV NAUSEA/VOMITING; Start 02/06/19 at 11:30; Stop 02/08/19 at 11:15; Status DC Prochlorperazine Edisylate (Compazine) 5 mg PRN Q6HRS PRN IV NAUSEA/VOMITING, 2ND CHOICE; Start 02/06/19 at 11:30 Calcium Carbonate/ Glycine (Tums) 500 mg PRN Q3HRS PRN PO HEARTBURN / GAS; Start 02/06/19 at 11:30 Famotidine (Pepcid Vial) 20 mg BID IVP Last administered on 02/07/19at 21:27; Start 02/06/19 at 21:00; Stop 02/08/19 at 09:40; Status DC Sodium Chloride (Normal Saline Flush) 3 ml QSHIFT PRN IV AFTER MEDS AND BLOOD DRAWS; Start 02/06/19 at 11:30 Potassium Chloride/Sodium Chloride 1,000 ml @ 100 mls/hr Q10H IV Last administered on 02/08/19 09:26; Start 02/06/19 at 12:00; Stop 02/08/19 at 10:30; Status DC Docusate Sodium (Colace) 100 mg BID PO Last administered on 02/07/19 08:57; Start 02/06/19 at 21:00 Lactulose (Lactulose) 20 gm PRN Q12HR PRN PO CONSTIPATION; Start 02/06/19 at 11:30 Bisacodyl (Dulcolax Supp) 10 mg PRN DAILY PRN OR CONSTIPATION; Start 02/06/19 at 11:30 Azithromycin 500 mg/Sodium Chloride 250 ml @ 250 mls/hr Q24H IV Last administered on 02/07/19 11:56; Start 02/06/19 at 12:00; Stop 02/08/19 at 12:59 Guaifenesin (MUCINEX ER with DM) 1 tab BID PO Last administered on 02/08/19 09:24; Start 02/06/19 at 12:00 Albuterol/ Ipratropium (Duoneb) 3 ml RTQID NEB Last administered on 02/07/19 20:20; Start 02/06/19 at 12:00 Levetiracetam (Keppra) 500 mg BID PO Last administered on 02/08/19 09:24; Start 02/06/19 at 13:45 Acetaminophen (Tylenol) 650 mg PRN Q4HRS PRN PO MILD PAIN, TEMP Last administered on 02/08/19 03:17; Start 02/06/19 at 13:45 Potassium Chloride (Klor-Con) 40 meq 1X ONCE PO Last administered on 02/06/19 23:33; Start 02/06/19 at 22:30; Stop 02/06/19 at 22:31; Status DC Budesonide (Pulmicort) 0.5 mg RTBID NEB Last administered on 02/08/19 07:34; Start 02/07/19 at 08:00 Ceftriaxone Sodium (Rocephin) 2 gm Q12HR IVP Last administered on 02/08/19 09:33; Start 02/07/19 at 14:30; Stop 02/08/19 at 11:22; Status DC Acetaminophen (Tylenol) 500 mg PRN Q6HRS PRN PO MILD PAIN / TEMP; Start 02/08/19 at 08:15; Stop 02/08/19 at 11:13; Status DC Ondansetron HCl (Zofran) 4 mg PRN Q6HRS PRN IVP NAUSEA/VOMITING, 1st Choice; Start 02/08/19 at 08:15 Famotidine (Pepcid) 20 mg BID PO Last administered on 02/08/19at 09:48; Start 02/08/19 at 10:00 Acetaminophen/ Hydrocodone Bitart (Lortab 5/325) 1 tab PRN Q4HRS PRN PO MODERATE PAIN, SEVERE PAIN; Start 02/08/19 at 10:30 Cefdinir (Omnicef) 300 mg BID PO ; Start 02/08/19 at 21:00 Lactobacillus Rhamnosus (Culturelle) 1 cap BID PO ; Start 02/08/19 at 21:00 Amitriptyline HCl (Elavil) 25 mg QHS PO ; Start 02/08/19 at 21:00 Duloxetine HCl (Cymbalta) 30 mg DAILY PO ; Start 02/08/19 at 12:00 Active Scripts Active Cefdinir 300 Mg Capsule 1 Cap PO BID Pulmicort Flexhaler (Budesonide) 180 Mcg Aer.pow.ba 2 Puff IH BID Proair Hfa Inhaler (Albuterol Sulfate) 8.5 Gm Hfa.aer.ad 2 Puff IH PRN Q4-6HRS PRN 21 Days Keppra (Levetiracetam) 500 Mg Tablet 500 Mg PO BID Reported Amitriptyline Hcl 25 Mg Tablet 1 Tab PO QHS Propranolol Hcl 10 Mg Tablet 1 Tab PO TID PRN PRN Nexium Capsule (Esomeprazole Magnesium) 40 Mg Capsule. 1 Cap PO DAILY Cymbalta (Duloxetine Hcl) 30 Mg Capsule. 1 Cap PO DAILY Vitals/I & O Vital Sign - Last 24 Hours 02/07/19 02/07/19 02/07/19 02/07/19 12:03 13:00 14:00 15:00 Pulse 76 62 60 Resp 25 20 25 B/P (MAP) 119/66 (83) 115/69 (84) 122/71 (88) Pulse Ox 95 94 94 95 O2 Delivery Room Air Room Air Room Air Room Air 02/07/19 02/07/19 02/07/19 02/07/19 16:00 16:00 16:19 17:00 Temp 98.0 98.0 Pulse 62 61 Resp 23 19 B/P (MAP) 106/71 (83) 131/61 (84) Pulse Ox 96 95 95 O2 Delivery Room Air Room Air Room Air Room Air 02/07/19 02/07/19 02/07/19 02/07/19 19:22 19:25 19:52 19:55 Temp 98.5 98.5 Pulse 55 Resp 18 B/P (MAP) 113/65 (81) Pulse Ox 95 O2 Delivery Room Air Room Air Room Air Room Air 02/07/19 02/07/19 02/07/19 02/07/19 20:15 22:54 23:24 23:33 Temp 98.5 98.5 Pulse 74 Resp 18 B/P (MAP) 115/76 (89) Pulse Ox 98 94 O2 Delivery Room Air Room Air Room Air Room Air 02/08/19 02/08/19 02/08/19 02/08/19 03:21 03:27 03:51 07:00 Temp 98.7 97.4 98.7 97.4 Pulse 70 73 Resp 18 18 B/P (MAP) 120/72 (88) 122/69 (86) Pulse Ox 95 95 O2 Delivery Room Air Room Air Room Air Room Air 02/08/19 02/08/19 02/08/19 02/08/19 07:34 08:00 09:28 10:22 Pulse Ox 98 98 98 O2 Delivery Room Air Room Air Room Air Room Air Intake and Output 02/07/19 02/07/19 02/08/19 15:00 23:00 07:00 Intake Total 1000 ml 300 ml 980 ml Output Total 900 ml 900 ml Balance 100 ml -600 ml 980 ml RANDEE MALCOLM MD Feb 08, 2019 12:04
[2019-02-08] MEDS: DULoxetine HCL 30 MG CAPSULE.DR PO SCH (12:18)
[2019-02-08] MEDS: AZITHROMYCIN 500 MG in IV NORMAL SALINE 250ML 250 ML IV SCH (12:21)
[2019-02-08] MEDS: HYDROcodone/APAP 5/325MG 1 TAB TABLET PO PRN ×2 (12:22→16:45)
--- NOTE | 2019-02-08 13:55 | RAD ---
MRI Brain without contrast History: Seizure, fall Technique: Multiplanar, multisequential noncontrast MR imaging was performed of the brain. Comparison: None other than 02/06/[address] exam Findings: There is no evidence of recent infarct. There is abnormal T2 and FLAIR hyperintense signal of the right temporal lobe more laterally with cortical involvement, also some extent of FLAIR hyperintense signal in the adjacent subarachnoid region. There is abnormal T2 and FLAIR hyperintense signal with cortical involvement of the frontal lobes anteriorly bilaterally. There is again focus of signal change of the right frontal parenchyma about 0.5 cm AP by 0.3 cm transverse, internally hypointense on T2 sequence and associated decreased signal on the gradient echo sequence. This is very slightly hyperintense on the T1 sequence. There is trace subdural hematoma in the right temporal subdural region less than 0.2 cm in greatest thickness, also trace left frontal region subdural hematoma about 0.1 to 0.2 cm greatest thickness. There is moderate to severe fluid and thickening of the right mastoid air cells. There is preservation major arterial flow voids at the skull base. There is minimal sphenoid sinus mucosal thickening, also minimally of the bilateral maxillary sinuses and ethmoid air cells, negligible frontal sinus mucosal thickening. Ventricular size is within normal limits. There is very mild deviation of the septum pellucidum to the left on the order of 0.2 cm. Impression: 1. As seen on CT, there is a small focus of acute/early subacute parenchymal hemorrhage of the right frontal lobe. There are foci of edema of the bilateral frontal lobes and right temporal lobe extending to the cortical surfaces, evidence of parenchymal contusions. There is mild FLAIR hyperintense signal also of the right temporal subarachnoid region likely mild subarachnoid hemorrhage. There are very small subdural hematomas in the right temporal occipital region and left frontal region. There is mild deviation of the septum pellucidum to the left. 2. There is fluid in the right mastoid air cells, recent calvarial fracture better seen on CT. Electronically signed by: Jvaon Fall MD (02/08/2019 1:52 PM) [id number]
[2019-02-08 15:00] VITALS: BP 120/68
[2019-02-08 19:00] VITALS: BP 122/79
[2019-02-08] MEDS ORDERED: AMITRIPTYLINE HCL 25 MG TABLET. PO SCH (21:00)
[2019-02-08] MEDS: LACTOBACILLUS RHAMNOSUS GG 1 CAPSULE. PO SCH (21:43)
[2019-02-08] MEDS: CEFDINIR 300 MG CAPSULE PO SCH (22:02)
[2019-02-08 23:00] VITALS: BP 122/72
[2019-02-09 03:36] VITALS: BP 125/72
[2019-02-09] MEDS: fentaNYL PF VIAL 100 MCG/2 ML VIAL IV PRN (06:35)
[2019-02-09 07:00] VITALS: BP 128/76
[2019-02-09] MEDS: guaiFENesin DM 600/30MG 1 TAB TAB.ER.12H PO SCH (08:29)
[2019-02-09] MEDS: FAMOTIDINE 20 MG TABLET. PO SCH (08:29)
[2019-02-09] MEDS: levETIRAcetam 500 MG TABLET PO SCH (08:29)
[2019-02-09] MEDS: CEFDINIR 300 MG CAPSULE PO SCH (08:29)
[2019-02-09] MEDS: LACTOBACILLUS RHAMNOSUS GG 1 CAPSULE. PO SCH (08:29)
[2019-02-09] MEDS: DOCUSATE SODIUM 100 MG CAPSULE. PO SCH (08:30)
[2019-02-09] MEDS: DULoxetine HCL 30 MG CAPSULE.DR PO SCH (08:30)
[2019-02-09] MEDS: HYDROcodone/APAP 5/325MG 1 TAB TABLET PO PRN (08:30)
[2019-02-09] MEDS: IPRATRPIUM/ALBUTEROL 0.5/2.5MG 3 ML NEBU. NEB SCH ×2 (08:58→12:19)
[2019-02-09] MEDS: BUDESONIDE 0.5 MG/2 ML NEBU. NEB SCH (08:58)
--- NOTE | 2019-02-09 09:24 | PDOC ---
PROGRESS NOTES Chief Complaint Chief Complaint SMall rt frontal subdural hematoma after traumatic fall with mild edema HEad concussion SZ post head concussion Occ smoker Atypical viral infection, lungs headache GAit instability sec to above RT EAC bleeding from RT temporal fracture MAstoid sinusitis History of Present Illness History of Present Illness TRAnsferred out of ICU 02/08- non surgical, small SUbdural bleed STill dizzy and headache FEels MISERABLE Atelectasis CXR 3 days ago Dried blood on gown from blood drips from his RT EAC NO ENT avail HEre Started on keppra by neuro - SZ post head concussion Pt lives 2.5 hrs from here - willl try to set up with his own ENT BRain mri shows expected findings, the fx, edema, hematoma, PLAN: I did start decadron to help with swelling Cant do nsaids - hematoma MAke lortab steve and inc dose to 10 start IVF - not eating Start cetirizine, see if flonase would help the feeling of congestion and mastoid sinusitis on MRI PT recs home independent Thoughts about dc keppra per acct IS julio cesar Nagy Vitals Vitals Vital Signs Date Time Temp Pulse Resp B/P (MAP) Pulse Ox O2 Delivery O2 Flow Rate FiO2 02/09/19 09:04 93 Room Air 02/09/19 08:30 18 02/09/19 07:00 98.0 54 128/76 (93) 98.0 Physical Exam Physical Exam GENERAL: The patient is propped up in bed, alert, no apparent distress. HEENT: Pupils equally round and reactive. Oropharynx pink and moist. No lacerations or abrasions noted on the scalp. NECK: Supple, full range of motion. LUNGS: Clear to auscultation. HEART: S1, S2. ABDOMEN: Soft, nontender with bowel sounds present. EXTREMITIES: No gross edema or cyanosis. SKIN: Warm to touch. No signs of rash. NEUROLOGIC: Alert and oriented x 3. Moves all extremities. EOMI. General: Alert, Oriented X3, Cooperative Heart: Regular rate, Normal S1, Normal S2 Lungs: Clear Abdomen: Normal bowel sounds, Soft Extremities: No clubbing, No cyanosis Skin: No rashes Review of Systems Review of Systems headache, rt ear pain, congestion, dizzy, poor po, all else 14 pt neg Assessment and Plan Assessmemt and Plan Problems Medical Problems: (1) Bronchitis Status: Acute Comment Review of Relevant I have reviewed the following items bekah (where applicable) has been applied. Labs Laboratory Tests Test 02/08/19 02:50 White Blood Count 7.3 x10^3/uL (4.0-11.0) Red Blood Count 4.50 x10^6/uL (4.30-5.70) Hemoglobin 13.0 g/dL (13.0-17.5) Hematocrit 39.1 % (39.0-53.0) Mean Corpuscular Volume 87 fL (79-100) Mean Corpuscular Hemoglobin 29 pg (25-35) Mean Corpuscular Hemoglobin Concent 33 g/dL (31-37) Red Cell Distribution Width 13.5 % (11.5-14.5) Platelet Count 216 x10^3/uL (140-400) Neutrophils (%) (Auto) 62 % (31-73) Lymphocytes (%) (Auto) 29 % (24-48) Monocytes (%) (Auto) 8 % (0-9) Eosinophils (%) (Auto) 0 % (0-3) Basophils (%) (Auto) 1 % (0-3) Neutrophils # (Auto) 4.5 x10^3/uL (1.8-7.7) Lymphocytes # (Auto) 2.1 x10^3/uL (1.0-4.8) Monocytes # (Auto) 0.6 x10^3/uL (0.0-1.1) Eosinophils # (Auto) 0.0 x10^3/uL (0.0-0.7) Basophils # (Auto) 0.0 x10^3/uL (0.0-0.2) Sodium Level 142 mmol/L (136-145) Potassium Level 4.0 mmol/L (3.5-5.1) Chloride Level 107 mmol/L (98-107) Carbon Dioxide Level 25 mmol/L (21-32) Anion Gap 10 (6-14) Blood Urea Nitrogen 6 mg/dL (8-26) Creatinine 0.7 mg/dL (0.7-1.3) Estimated GFR (Cockcroft-Gault) 124.3 Glucose Level 98 mg/dL (70-99) Calcium Level 9.3 mg/dL (8.5-10.1) Microbiology 02/06/19 - Final, Resulted 02/06/19 - Final, Resulted 02/06/19 - Final, Resulted 02/06/19 - Preliminary, Resulted 02/06/19 - Preliminary, Resulted 02/06/19 - Preliminary, Resulted 02/06/19 Gram Stain Evaluation - Final, Resulted 02/06/19 Sputum Culture, Resulted Pending 02/05/19 Blood Culture - Preliminary, Resulted NO GROWTH AFTER 3 DAYS Medications Current Medications Acetaminophen (Tylenol Supp) 650 mg 1X ONCE CO Last administered on 02/05/19at 23:48; Start 02/05/19 at 23:15; Stop 02/06/19 at 00:06; Status DC Sodium Chloride 1,000 ml @ 1,000 mls/hr 1X ONCE IV Last administered on 02/05/19at 23:20; Start 02/06/19 at 00:30; Stop 02/06/19 at 01:29; Status DC Piperacillin Sod/ Tazobactam Sod 4.5 gm/Sodium Chloride 100 ml @ 200 mls/hr 1X ONCE IV Last administered on 02/06/19at 00:13; Start 02/06/19 at 00:30; Stop 02/06/19 at 00:59; Status DC Magnesium Sulfate 50 ml @ 25 mls/hr 1X ONCE IV Last administered on 02/06/19at 00:14; Start 02/06/19 at 00:30; Stop 02/06/19 at 02:29; Status DC Potassium Chloride/Water 100 ml @ 100 mls/hr Q1H IV Last administered on 02/06/19at 01:35; Start 02/06/19 at 01:00; Stop 02/06/19 at 02:59; Status DC Lorazepam (Ativan Inj) 2 mg STK-MED ONCE .ROUTE ; Start 02/05/19 at 23:46; Stop 02/05/19 at 23:47; Status DC Ondansetron HCl (Zofran) 4 mg PRN Q8HRS PRN IV NAUSEA/VOMITING 1ST CHOICE; Start 02/06/19 at 00:00; Stop 02/06/19 at 23:59; Status DC Fentanyl Citrate (Fentanyl 2ml Vial) 50 mcg PRN Q2HRS PRN IV SEVERE PAIN 7-10 Last administered on 02/09/19at 06:35; Start 02/06/19 at 00:00 Lorazepam (Ativan Inj) 1 mg PRN Q4HRS PRN IVP ANXIETY / AGITATION; Start 02/06/19 at 00:15; Stop 02/06/19 at 11:34; Status DC Acetaminophen (Tylenol) 650 mg PRN Q6HRS PRN PO Headaches, Temp > 101.5'; Start 02/06/19 at 11:30; Stop 02/08/19 at 11:13; Status DC Lorazepam (Ativan Inj) 0.5 mg PRN Q6HRS PRN IV ANXIETY / AGITATION; Start 02/06/19 at 11:30 Ondansetron HCl (Zofran) 4 mg PRN Q6HRS PRN IV NAUSEA/VOMITING; Start 02/06/19 at 11:30; Stop 02/08/19 at 11:15; Status DC Prochlorperazine Edisylate (Compazine) 5 mg PRN Q6HRS PRN IV NAUSEA/VOMITING, 2ND CHOICE; Start 02/06/19 at 11:30 Calcium Carbonate/ Glycine (Tums) 500 mg PRN Q3HRS PRN PO HEARTBURN / GAS; Start 02/06/19 at 11:30 Famotidine (Pepcid Vial) 20 mg BID IVP Last administered on 02/07/19at 21:27; Start 02/06/19 at 21:00; Stop 02/08/19 at 09:40; Status DC Sodium Chloride (Normal Saline Flush) 3 ml QSHIFT PRN IV AFTER MEDS AND BLOOD DRAWS; Start 02/06/19 at 11:30 Potassium Chloride/Sodium Chloride 1,000 ml @ 100 mls/hr Q10H IV Last administered on 02/08/19at 09:26; Start 02/06/19 at 12:00; Stop 02/08/19 at 10:30; Status DC Docusate Sodium (Colace) 100 mg BID PO Last administered on 02/09/19at 08:30; Start 02/06/19 at 21:00 Lactulose (Lactulose) 20 gm PRN Q12HR PRN PO CONSTIPATION; Start 02/06/19 at 11:30 Bisacodyl (Dulcolax Supp) 10 mg PRN DAILY PRN CO CONSTIPATION; Start 02/06/19 at 11:30 Azithromycin 500 mg/Sodium Chloride 250 ml @ 250 mls/hr Q24H IV Last admini stered on 02/08/19 12:21; Start 02/06/19 at 12:00; Stop 02/08/19 at 12:59; Status DC Guaifenesin (MUCINEX ER with DM) 1 tab BID PO Last administered on 02/09/19 08:29; Start 02/06/19 at 12:00 Albuterol/ Ipratropium (Duoneb) 3 ml RTQID NEB Last administered on 02/09/19 08:58; Start 02/06/19 at 12:00 Levetiracetam (Keppra) 500 mg BID PO Last administered on 02/09/19 08:29; Start 02/06/19 at 13:45 Acetaminophen (Tylenol) 650 mg PRN Q4HRS PRN PO MILD PAIN, TEMP Last administered on 02/08/19 03:17; Start 02/06/19 at 13:45 Potassium Chloride (Klor-Con) 40 meq 1X ONCE PO Last administered on 02/06/19 23:33; Start 02/06/19 at 22:30; Stop 02/06/19 at 22:31; Status DC Budesonide (Pulmicort) 0.5 mg RTBID NEB Last administered on 02/09/19 08:58; Start 02/07/19 at 08:00 Ceftriaxone Sodium (Rocephin) 2 gm Q12HR IVP Last administered on 02/08/19 09:33; Start 02/07/19 at 14:30; Stop 02/08/19 at 11:22; Status DC Acetaminophen (Tylenol) 500 mg PRN Q6HRS PRN PO MILD PAIN / TEMP; Start at 08:15; Stop 02/08/19 at 11:13; Status DC Ondansetron HCl (Zofran) 4 mg PRN Q6HRS PRN IVP NAUSEA/VOMITING, 1st Choice; Start 02/08/19 at 08:15 Famotidine (Pepcid) 20 mg BID PO Last administered on 02/09/19 08:29; Start 02/08/19 at 10:00 Acetaminophen/ Hydrocodone Bitart (Lortab 5/325) 1 tab PRN Q4HRS PRN PO MODERATE PAIN, SEVERE PAIN Last administered on 10/29/19at 08:30; Start 02/08/19 at 10:30 Cefdinir (Omnicef) 300 mg BID PO Last administered on 02/09/19 08:29; Start 02/08/19 at 21:00 Lactobacillus Rhamnosus (Culturelle) 1 cap BID PO Last administered on 02/09/19 08:29; Start 02/08/19 at 21:00 Amitriptyline HCl (Elavil) 25 mg QHS PO Last administered on 02/08/19at 21:44; Start 02/08/19 at 21:00 Duloxetine HCl (Cymbalta) 30 mg DAILY PO Last administered on 02/09/19 08:30; Start 02/08/19 at 12:00 Active Scripts Active Cefdinir 300 Mg Capsule 1 Cap PO BID Pulmicort Flexhaler (Budesonide) 180 Mcg Aer.pow.ba 2 Puff IH BID Proair Hfa Inhaler (Albuterol Sulfate) 8.5 Gm Hfa.aer.ad 2 Puff IH PRN Q4-6HRS PRN 21 Days Keppra (Levetiracetam) 500 Mg Tablet 500 Mg PO BID Reported Amitriptyline Hcl 25 Mg Tablet 1 Tab PO QHS Propranolol Hcl 10 Mg Tablet 1 Tab PO TID PRN PRN Nexium Capsule (Esomeprazole Magnesium) 40 Mg Capsule.dr 1 Cap PO DAILY Cymbalta (Duloxetine Hcl) 30 Mg Capsule.dr 1 Cap PO DAILY Vitals/I & O Vital Sign - Last 24 Hours 02/08/19 02/08/19 02/08/19 02/08/19 09:28 10:22 11:00 12:22 Temp 97.6 97.6 Pulse 56 Resp 18 B/P (MAP) 112/66 (81) Pulse Ox 98 98 97 98 O2 Delivery Room Air Room Air Room Air Room Air 02/08/19 02/08/19 02/08/19 02/08/19 12:48 13:18 15:00 16:45 Temp 98.9 98.9 Pulse 58 Resp 18 B/P (MAP) 120/68 (85) Pulse Ox 97 97 94 97 O2 Delivery Room Air Room Air Room Air Room Air 02/08/19 02/08/19 02/08/19 02/08/19 17:11 17:52 18:10 18:40 Resp 20 Pulse Ox 97 97 97 O2 Delivery Room Air Room Air Room Air Room Air 02/08/19 02/08/19 02/08/19 02/08/19 19:00 20:10 20:52 21:50 Temp 97.6 97.6 Pulse 59 Resp 16 20 B/P (MAP) 122/79 (93) Pulse Ox 94 95 O2 Delivery Room Air Room Air Room Air 02/08/19 02/08/19 02/09/19 02/09/19 22:20 23:00 03:36 06:35 Temp 98.3 98.3 98.3 98.3 Pulse 55 59 Resp 20 16 16 20 B/P (MAP) 122/72 (89) 125/72 (89) Pulse Ox 93 94 O2 Delivery Room Air Room Air Room Air 02/09/19 02/09/19 02/09/19 02/09/19 07:00 07:05 08:30 09:04 Temp 98.0 98.0 Pulse 54 Resp 18 20 18 B/P (MAP) 128/76 (93) Pulse Ox 93 93 O2 Delivery Room Air Room Air Room Air Room Air Intake and Output 02/08/19 02/08/19 02/09/19 15:00 23:00 07:00 Intake Total 900 ml Balance 900 ml RONIT GRANT MD Feb 09, 2019 09:24
[2019-02-09] MEDS ORDERED: FLUTICASONE 50MCG/NASAL SPRAY 16GM BOTTLE. NS SCH (09:30)
[2019-02-09] MEDS ORDERED: CETIRIZINE HCL 10 MG TABLET. PO SCH (09:30)
[2019-02-09] MEDS ORDERED: traMADol 50 MG TABLET PO PRN (09:30)
[2019-02-09] MEDS ORDERED: DEXAMETHASONE 4 MG TABLET PO SCH (09:30)
[2019-02-09] MEDS ORDERED: IV 1/2 NORMAL SALINE 1,000 ML IV SCH (09:30)
--- NOTE | 2019-02-09 09:50 | PDOC ---
Infectious Disease Note Subjective Subjective Doing ok. HOUSE some better but still prominent No F/C/n and eating some but not a lot Cough is still there but continues to improve Vital Sign Vital Signs Vital Signs Date Time Temp Pulse Resp B/P (MAP) Pulse Ox O2 Delivery O2 Flow Rate FiO2 02/09/19 09:04 93 Room Air 02/09/19 08:30 18 02/09/19 07:00 98.0 54 128/76 (93) 98.0 Physical Exam PHYSICAL EXAM GENERAL: The patient is propped up in bed, alert, no apparent distress.- looks slightly better HEENT: Pupils equally round and reactive. Oropharynx pink and moist. No lacerations or abrasions noted on the scalp. NECK: Supple, full range of motion. LUNGS: Clear to auscultation. HEART: S1, S2. ABDOMEN: Soft, nontender with bowel sounds present. EXTREMITIES: No gross edema or cyanosis. SKIN: Warm to touch. No signs of rash. NEUROLOGIC: Alert and oriented x 3. Moves all extremities. EOMI. Labs Micro Microbiology 02/05/19 Blood Culture - Preliminary, Resulted NO GROWTH AFTER 2 DAYS Objective Assessment Fever. influenza neg, may likely be reactive to trauma, infection not ruled out - better Acute bronchitits Skull fracture Subdural hematoma/intraparenchymal hemorrhage following a fall on Dexamethasone Syncopal episode Tobacco dependence Plan Plan of Care azithromycin x 3 days done 02/08 Sputum culture pending - GPC in pairs clinically cough is improving Avoid nasal tubes/swabs and blowing nose Cont Cefdinir f/u cultures Monitor closely Neuro and NS following. No surgical plans D/w nursing and BLAIRE QUINTANILLA MD Feb 09, 2019 09:50
--- NOTE | 2019-02-09 10:12 | PDOC ---
PULMONARY PROGRESS NOTES Subjective PT FEELS BETTER COUGH IS STILL PROBLEMATIC Vitals Vital Signs Date Time Temp Pulse Resp B/P (MAP) Pulse Ox O2 Delivery O2 Flow Rate FiO2 02/09/19 10:03 16 93 Room Air 2.0 02/09/19 07:00 98.0 54 128/76 (93) 98.0 ROS: No Nausea, No Chest Pain, No Abdominal Pain Lungs: Clear Cardiovascular: S1 Abdomen: Soft Neuro Exam: Alert Extremities: No Edema Skin: Warm Labs Laboratory Tests Test 02/08/19 02:50 White Blood Count 7.3 x10^3/uL (4.0-11.0) Red Blood Count 4.50 x10^6/uL (4.30-5.70) Hemoglobin 13.0 g/dL (13.0-17.5) Hematocrit 39.1 % (39.0-53.0) Mean Corpuscular Volume 87 fL (79-100) Mean Corpuscular Hemoglobin 29 pg (25-35) Mean Corpuscular Hemoglobin Concent 33 g/dL (31-37) Red Cell Distribution Width 13.5 % (11.5-14.5) Platelet Count 216 x10^3/uL (140-400) Neutrophils (%) (Auto) 62 % (31-73) Lymphocytes (%) (Auto) 29 % (24-48) Monocytes (%) (Auto) 8 % (0-9) Eosinophils (%) (Auto) 0 % (0-3) Basophils (%) (Auto) 1 % (0-3) Neutrophils # (Auto) 4.5 x10^3/uL (1.8-7.7) Lymphocytes # (Auto) 2.1 x10^3/uL (1.0-4.8) Monocytes # (Auto) 0.6 x10^3/uL (0.0-1.1) Eosinophils # (Auto) 0.0 x10^3/uL (0.0-0.7) Basophils # (Auto) 0.0 x10^3/uL (0.0-0.2) Sodium Level 142 mmol/L (136-145) Potassium Level 4.0 mmol/L (3.5-5.1) Chloride Level 107 mmol/L (98-107) Carbon Dioxide Level 25 mmol/L (21-32) Anion Gap 10 (6-14) Blood Urea Nitrogen 6 mg/dL (8-26) Creatinine 0.7 mg/dL (0.7-1.3) Estimated GFR (Cockcroft-Gault) 124.3 Glucose Level 98 mg/dL (70-99) Calcium Level 9.3 mg/dL (8.5-10.1) Medications Active Scripts Medications Dose Route/Sig Max Daily Dose Days Date Category Pulmicort Flexhaler (Budesonide) 180 Mcg Aer.pow.ba 2 Puff IH BID 02/08/19 Rx Proair Hfa Inhaler (Albuterol Sulfate) 8.5 Gm Hfa.aer.ad 2 Puff IH PRN Q4-6HRS PRN 21 02/08/19 Rx Keppra (Levetiracetam) 500 Mg Tablet 500 Mg PO BID 02/08/19 Rx Amitriptyline Hcl 25 Mg Tablet 1 Tab PO QHS 02/06/19 Reported Propranolol Hcl 10 Mg Tablet 1 Tab PO TID PRN PRN 02/06/19 Reported Nexium Capsule (Esomeprazole Magnesium) 40 Mg Capsule.dr 1 Cap PO DAILY 02/06/19 Reported Cymbalta (Duloxetine Hcl) 30 Mg Capsule.dr 1 Cap PO DAILY 02/06/19 Reported Impression . IMPRESSION: 1. COUGH SYNCOPE 2. Acute bronchitis. 3. Acute bronchospasm, SEC TO AECOPD 4. Tobacco habituation. 5. Obstructive sleep apnea-hypopnea syndrome. 6. Syncope. 7. Subdural hematoma and skull fracture. Plan . D/C HOME RX FOR PRED FOR 5 DAYS D/C ALL CAFFEINE OTC ZYTEC D/C ALL ENEGERGY DRINKS FOLLOW UP NEEDED BC GIVEN TO PATIENT OLIMPIA HARRIS MD Feb 09, 2019 10:12
[2019-02-09 11:00] VITALS: BP 124/67
--- NOTE | 2019-02-09 11:20 | NUR ---
SW following for discharge planning. Discussed with RN, pt has declined since yesterday. RN does not anticipate pt will discharge home today. SW will continue to follow.
--- NOTE | 2019-02-09 11:46 | PDOC ---
PROGRESS NOTES Assessment Problems Medical Problems: (1) Bronchitis Status: Acute Traumatic brain injury with right sided subdural hematoma and right frontal contusion. Fracture of petrous portion of the right temporal bone extending to right external auditory canal, with hearing loss from that. Posttraumatic stress disorder and anxiety Sleep apnea Other issues: fever, bronchitis, tobacco dependence Neurosurgery following, no need for surgery Note physical and occupational therapy evaluations, does not need therapy Plan Okay for discharge He'll need a supply of Lortab with which to go home Outpatient ENT consultation I am simply stopping the levetiracetam, no indication for prophylactic anticonvulsants in this situation. I discussed risk, benefits, alternatives, he has not been on it long enough to develop withdrawal seizures Follow-up with me in 4-6 weeks Subjective Still has some headache, will need some Lortab to go home with Objective Vital Signs Date Time Temp Pulse Resp B/P (MAP) Pulse Ox O2 Delivery O2 Flow Rate FiO2 02/09/19 10:03 16 93 Room Air 2.0 02/09/19 07:00 98.0 54 128/76 (93) 98.0 Intake and Output 02/09/19 07:00 Intake Total 900 ml Balance 900 ml Intake Oral 900 ml # Voids 2 # Bowel Movements 1 PHYSICAL EXAM Alert. Oriented to time, place and person. PERRL. EOMI. CN: Hearing loss in the right ear, otherwise no focal findings. Muscle tone: normal. Muscle strength: 5/5 DTR: 2+ Plantar reflex: flexor Gait: A little unsteady. Sensory exam: no abnormal findings. No cerebellar signs elicited. Review of Relevant I have reviewed the following items bekah (where applicable) has been applied. Labs Laboratory Tests Test 02/08/19 02:50 White Blood Count 7.3 x10^3/uL (4.0-11.0) Red Blood Count 4.50 x10^6/uL (4.30-5.70) Hemoglobin 13.0 g/dL (13.0-17.5) Hematocrit 39.1 % (39.0-53.0) Mean Corpuscular Volume 87 fL (79-100) Mean Corpuscular Hemoglobin 29 pg (25-35) Mean Corpuscular Hemoglobin Concent 33 g/dL (31-37) Red Cell Distribution Width 13.5 % (11.5-14.5) Platelet Count 216 x10^3/uL (140-400) Neutrophils (%) (Auto) 62 % (31-73) Lymphocytes (%) (Auto) 29 % (24-48) Monocytes (%) (Auto) 8 % (0-9) Eosinophils (%) (Auto) 0 % (0-3) Basophils (%) (Auto) 1 % (0-3) Neutrophils # (Auto) 4.5 x10^3/uL (1.8-7.7) Lymphocytes # (Auto) 2.1 x10^3/uL (1.0-4.8) Monocytes # (Auto) 0.6 x10^3/uL (0.0-1.1) Eosinophils # (Auto) 0.0 x10^3/uL (0.0-0.7) Basophils # (Auto) 0.0 x10^3/uL (0.0-0.2) Sodium Level 142 mmol/L (136-145) Potassium Level 4.0 mmol/L (3.5-5.1) Chloride Level 107 mmol/L (98-107) Carbon Dioxide Level 25 mmol/L (21-32) Anion Gap 10 (6-14) Blood Urea Nitrogen 6 mg/dL (8-26) Creatinine 0.7 mg/dL (0.7-1.3) Estimated GFR (Cockcroft-Gault) 124.3 Glucose Level 98 mg/dL (70-99) Calcium Level 9.3 mg/dL (8.5-10.1) Microbiology 02/06/19 - Final, Resulted 02/06/19 - Final, Resulted 02/06/19 - Final, Resulted 02/06/19 - Preliminary, Resulted 02/06/19 - Preliminary, Resulted 02/06/19 - Preliminary, Resulted 02/06/19 Gram Stain Evaluation - Final, Resulted 02/06/19 Sputum Culture - Final, Resulted 02/06/19 Sputum Result 1 - Final, Resulted 02/05/19 Blood Culture - Preliminary, Resulted NO GROWTH AFTER 3 DAYS Medications Current Medications Acetaminophen (Tylenol Supp) 650 mg 1X ONCE WI Last administered on 02/05/19at 23:48; Start 02/05/19 at 23:15; Stop 02/06/19 at 00:06; Status DC Sodium Chloride 1,000 ml @ 1,000 mls/hr 1X ONCE IV Last administered on 02/05/19at 23:20; Start 02/06/19 at 00:30; Stop 02/06/19 at 01:29; Status DC Piperacillin Sod/ Tazobactam Sod 4.5 gm/Sodium Chloride 100 ml @ 200 mls/hr 1X ONCE IV Last administered on 02/06/19at 00:13; Start 02/06/19 at 00:30; Stop 02/06/19 at 00:59; Status DC Magnesium Sulfate 50 ml @ 25 mls/hr 1X ONCE IV Last administered on 02/06/19at 00:14; Start 02/06/19 at 00:30; Stop 02/06/19 at 02:29; Status DC Potassium Chloride/Water 100 ml @ 100 mls/hr Q1H IV Last administered on 02/06/19at 01:35; Start 02/06/19 at 01:00; Stop 02/06/19 at 02:59; Status DC Lorazepam (Ativan Inj) 2 mg STK-MED ONCE .ROUTE ; Start 02/05/19 at 23:46; Stop 02/05/19 at 23:47; Status DC Ondansetron HCl (Zofran) 4 mg PRN Q8HRS PRN IV NAUSEA/VOMITING 1ST CHOICE; St art 02/06/19 at 00:00; Stop 02/06/19 at 23:59; Status DC Fentanyl Citrate (Fentanyl 2ml Vial) 50 mcg PRN Q2HRS PRN IV SEVERE PAIN 7-10 Last administered on 02/09/19at 06:35; Start 02/06/19 at 00:00 Lorazepam (Ativan Inj) 1 mg PRN Q4HRS PRN IVP ANXIETY / AGITATION; Start 02/06/19 at 00:15; Stop 02/06/19 at 11:34; Status DC Acetaminophen (Tylenol) 650 mg PRN Q6HRS PRN PO Headaches, Temp > 101.5'; Start 02/06/19 at 11:30; Stop 02/08/19 at 11:13; Status DC Lorazepam (Ativan Inj) 0.5 mg PRN Q6HRS PRN IV ANXIETY / AGITATION; Start 02/06/19 at 11:30 Ondansetron HCl (Zofran) 4 mg PRN Q6HRS PRN IV NAUSEA/VOMITING; Start 02/06/19 at 11:30; Stop 02/08/19 at 11:15; Status DC Prochlorperazine Edisylate (Compazine) 5 mg PRN Q6HRS PRN IV NAUSEA/VOMITING, 2ND CHOICE; Start 02/06/19 at 11:30 Calcium Carbonate/ Glycine (Tums) 500 mg PRN Q3HRS PRN PO HEARTBURN / GAS; Start 02/06/19 at 11:30 Famotidine (Pepcid Vial) 20 mg BID IVP Last administered on 02/07/19at 21:27; Start 02/06/19 at 21:00; Stop 02/08/19 at 09:40; Status DC Sodium Chloride (Normal Saline Flush) 3 ml QSHIFT PRN IV AFTER MEDS AND BLOOD DRAWS; Start 02/06/19 at 11:30 Potassium Chloride/Sodium Chloride 1,000 ml @ 100 mls/hr Q10H IV Last administered on 02/08/19at 09:26; Start 02/06/19 at 12:00; Stop 02/08/19 at 10:30; Status DC Docusate Sodium (Colace) 100 mg BID PO Last administered on 02/09/19at 08:30; Start 02/06/19 at 21:00 Lactulose (Lactulose) 20 gm PRN Q12HR PRN PO CONSTIPATION; Start 02/06/19 at 11:30 Bisacodyl (Dulcolax Supp) 10 mg PRN DAILY PRN [place] CONSTIPATION; Start 02/06/19 at 11:30 Azithromycin 500 mg/Sodium Chloride 250 ml @ 250 mls/hr Q24H IV Last administered on 02/08/19at 12:21; Start 02/06/19 at 12:00; Stop 02/08/19 at 12:59; Status DC Guaifenesin (MUCINEX ER with DM) 1 tab BID PO Last administered on 02/09/19 08:29; Start 02/06/19 at 12:00 Albuterol/ Ipratropium (Duoneb) 3 ml RTQID NEB Last administered on 02/09/19at 08:58; Start 02/06/19 at 12:00 Levetiracetam (Keppra) 500 mg BID PO Last administered on 02/09/19at 08:29; Start 02/06/19 at 13:45 Acetaminophen (Tylenol) 650 mg PRN Q4HRS PRN PO MILD PAIN, TEMP Last administ ered on 02/08/19 03:17; Start 02/06/19 at 13:45 Potassium Chloride (Klor-Con) 40 meq 1X ONCE PO Last administered on 23:33; Start 02/06/19 at 22:30; Stop 02/06/19 at 22:31; Status DC Budesonide (Pulmicort) 0.5 mg RTBID NEB Last administered on 02/09/19 08:58; Start 02/07/19 at 08:00 Ceftriaxone Sodium (Rocephin) 2 gm Q12HR IVP Last administered on 02/08/19 09:33; Start 02/07/19 at 14:30; Stop 02/08/19 at 11:22; Status DC Acetaminophen (Tylenol) 500 mg PRN Q6HRS PRN PO MILD PAIN / TEMP; Start 02/08/19 at 08:15; Stop 02/08/19 at 11:13; Status DC Ondansetron HCl (Zofran) 4 mg PRN Q6HRS PRN IVP NAUSEA/VOMITING, 1st Choice; Start 02/08/19 at 08:15 Famotidine (Pepcid) 20 mg BID PO Last administered on 02/09/19 08:29; Start 02/08/19 at 10:00 Acetaminophen/ Hydrocodone Bitart (Lortab 5/325) 1 tab PRN Q4HRS PRN PO MODERATE PAIN, SEVERE PAIN Last administered on 02/09/19 08:30; Start 02/08/19 at 10:30; Stop 02/09/19 at 09:21; Status DC Cefdinir (Omnicef) 300 mg BID PO Last administered on 02/09/19 08:29; Start 02/08/19 at 21:00 Lactobacillus Rhamnosus (Culturelle) 1 cap BID PO Last administered on 02/09/19 08:29; Start 02/08/19 at 21:00 Amitriptyline HCl (Elavil) 25 mg QHS PO Last administered on 02/08/19at 21:44; Start 02/08/19 at 21:00 Duloxetine HCl (Cymbalta) 30 mg DAILY PO Last administered on 02/09/19 08:30; Start 02/08/19 at 12:00 Dexamethasone (Decadron) 2 mg TID PO Last administered on 02/09/19at 10:04; Start 02/09/19 at 09:30 Fluticasone Propionate (Flonase) 2 spray BID NS Last administered on 02/09/19at 10:03; Start 02/09/19 at 09:30 Acetaminophen/ Hydrocodone Bitart (Lortab 10/325) 1 tab QID PO ; Start 02/09/19 at 13:00 Cetirizine HCl (ZyrTEC) 10 mg DAILY PO Last administered on 02/09/19 10:05; Start 02/09/19 at 09:30 Sodium Chloride 1,000 ml @ 100 mls/hr Q10H IV Last administered on 02/09/19 10:02; Start 02/09/19 at 09:30 Tramadol HCl (Ultram) 50 mg PRN Q6HRS PRN PO BREAKTHROUGH PAIN Last administered on 02/09/19 10:03; Start 02/09/19 at 09:30 Active Scripts Active Cefdinir 300 Mg Capsule 1 Cap PO BID Pulmicort Flexhaler (Budesonide) 180 Mcg Aer.pow.ba 2 Puff IH BID Proair Hfa Inhaler (Albuterol Sulfate) 8.5 Gm Hfa.aer.ad 2 Puff IH PRN Q4-6HRS PRN 21 Days Keppra (Levetiracetam) 500 Mg Tablet 500 Mg PO BID Reported Amitriptyline Hcl 25 Mg Tablet 1 Tab PO QHS Propranolol Hcl 10 Mg Tablet 1 Tab PO TID PRN PRN Nexium Capsule (Esomeprazole Magnesium) 40 Mg Capsule. 1 Cap PO DAILY Cymbalta (Duloxetine Hcl) 30 Mg Capsule.dr 1 Cap PO DAILY Vitals/I & O Vital Sign - Last 24 Hours 02/08/19 02/08/19 02/08/19 02/08/19 12:22 12:48 13:18 15:00 Temp 98.9 98.9 Pulse 58 Resp 18 B/P (MAP) 120/68 (85) Pulse Ox 98 97 97 94 O2 Delivery Room Air Room Air Room Air Room Air 02/08/19 02/08/19 02/08/19 02/08/19 16:45 17:11 17:52 18:10 Pulse Ox 97 97 97 97 O2 Delivery Room Air Room Air Room Air Room Air 02/08/19 02/08/19 02/08/19 02/08/19 18:40 19:00 20:10 20:52 Temp 97.6 97.6 Pulse 59 Resp 20 16 B/P (MAP) 122/79 (93) Pulse Ox 94 95 O2 Delivery Room Air Room Air Room Air 02/08/19 02/08/19 02/08/19 02/09/19 21:50 22:20 23:00 03:36 Temp 98.3 98.3 98.3 98.3 Pulse 55 59 Resp 20 20 16 16 B/P (MAP) 122/72 (89) 125/72 (89) Pulse Ox 93 94 O2 Delivery Room Air Room Air Room Air 02/09/19 02/09/19 02/09/19 02/09/19 06:35 07:00 07:05 08:30 Temp 98.0 98.0 Pulse 54 Resp 20 18 20 18 B/P (MAP) 128/76 (93) Pulse Ox 93 O2 Delivery Room Air Room Air Room Air Room Air 02/09/19 02/09/19 09:04 10:03 Resp 16 Pulse Ox 93 93 O2 Delivery Room Air Room Air O2 Flow Rate 2.0 Intake and Output 02/08/19 02/08/19 02/09/19 15:00 23:00 07:00 Intake Total 900 ml Balance 900 ml Images MRI Brain without contrast History: Seizure, fall Technique: Multiplanar, multisequential noncontrast MR imaging was performed of the brain. Comparison: None other than 02/06/[address] exam Findings: There is no evidence of recent infarct. There is abnormal T2 and FLAIR hyperintense signal of the right temporal lobe more laterally with cortical involvement, also some extent of FLAIR hyperintense signal in the adjacent subarachnoid region. There is abnormal T2 and FLAIR hyperintense signal with cortical involvement of the frontal lobes anteriorly bilaterally. There is again focus of signal change of the right frontal parenchyma about 0.5 cm AP by 0.3 cm transverse, internally hypointense on T2 sequence and associated decreased signal on the gradient echo sequence. This is very slightly hyperintense on the T1 sequence. There is trace subdural hematoma in the right temporal subdural region less than 0.2 cm in greatest thickness, also trace left frontal region subdural hematoma about 0.1 to 0.2 cm greatest thickness. There is moderate to severe fluid and thickening of the right mastoid air cells. There is preservation major arterial flow voids at the skull base. There is minimal sphenoid sinus mucosal thickening, also minimally of the bilateral maxillary sinuses and ethmoid air cells, negligible frontal sinus mucosal thickening. Ventricular size is within normal limits. There is very mild deviation of the septum pellucidum to the left on the order of 0.2 cm. Impression: 1. As seen on CT, there is a small focus of acute/early subacute parenchymal hemorrhage of the right frontal lobe. There are foci of edema of the bilateral frontal lobes and right temporal lobe extending to the cortical surfaces, evidence of parenchymal contusions. There is mild FLAIR hyperintense signal also of the right temporal subarachnoid region likely mild subarachnoid hemorrhage. There are very small subdural hematomas in the right temporal occipital region and left frontal region. There is mild deviation of the septum pellucidum to the left. 2. There is fluid in the right mastoid air cells, recent calvarial fracture better seen on CT. RANDEE MALCOLM MD Feb 09, 2019 11:46
[2019-02-09] MEDS ORDERED: HYDROcodone/APAP 10/325 1 TAB TABLET PO SCH (13:00)
--- NOTE | 2019-02-09 14:27 | PDOC3 ---
Discharge Summary Visit Information Date of Admission: Feb 06, 2019 Date of Discharge: Feb 09, 2019 Admitting Diagnosis Comment: SMall rt frontal subdural hematoma after traumatic fall with mild edema HEad concussion SZ post head concussion Occ smoker Atypical viral infection, lungs headache GAit instability sec to above RT EAC bleeding from RT temporal fracture MAstoid sinusitis Final Diagnosis Problems Medical Problems: (1) Bronchitis Status: Acute Brief Hospital Course Allergies Allergies Coded Allergies Type Severity Reaction Last Updated Verified No Known Drug Allergies 02/06/19 No Vital Signs Vital Signs Date Time Temp Pulse Resp B/P (MAP) Pulse Ox O2 Delivery O2 Flow Rate FiO2 02/09/19 14:00 18 Room Air 02/09/19 12:22 94 02/09/19 11:00 97.4 66 124/67 (86) 97.4 02/09/19 10:03 2.0 Lab Results Laboratory Tests Test 02/08/19 02:50 White Blood Count 7.3 x10^3/uL (4.0-11.0) Red Blood Count 4.50 x10^6/uL (4.30-5.70) Hemoglobin 13.0 g/dL (13.0-17.5) Hematocrit 39.1 % (39.0-53.0) Mean Corpuscular Volume 87 fL (79-100) Mean Corpuscular Hemoglobin 29 pg (25-35) Mean Corpuscular Hemoglobin Concent 33 g/dL (31-37) Red Cell Distribution Width 13.5 % (11.5-14.5) Platelet Count 216 x10^3/uL (140-400) Neutrophils (%) (Auto) 62 % (31-73) Lymphocytes (%) (Auto) 29 % (24-48) Monocytes (%) (Auto) 8 % (0-9) Eosinophils (%) (Auto) 0 % (0-3) Basophils (%) (Auto) 1 % (0-3) Neutrophils # (Auto) 4.5 x10^3/uL (1.8-7.7) Lymphocytes # (Auto) 2.1 x10^3/uL (1.0-4.8) Monocytes # (Auto) 0.6 x10^3/uL (0.0-1.1) Eosinophils # (Auto) 0.0 x10^3/uL (0.0-0.7) Basophils # (Auto) 0.0 x10^3/uL (0.0-0.2) Sodium Level 142 mmol/L (136-145) Potassium Level 4.0 mmol/L (3.5-5.1) Chloride Level 107 mmol/L (98-107) Carbon Dioxide Level 25 mmol/L (21-32) Anion Gap 10 (6-14) Blood Urea Nitrogen 6 mg/dL (8-26) Creatinine 0.7 mg/dL (0.7-1.3) Estimated GFR (Cockcroft-Gault) 124.3 Glucose Level 98 mg/dL (70-99) Calcium Level 9.3 mg/dL (8.5-10.1) Brief Hospital Course Mr. Hwang is a 43 old who sustained a pretty bad fall, hit his head from a standing position and had small subdural bleed, RT frontal and temporal lobe with some brain swelling and had SZ on arrival post concussion, On surgical co managed with neurosx and neuro and needed ICU few days, No HTN. HE continued to have signif headaches and sometimes dizziness, His rt internal ear bled for a while, he did have temporal bone fx there, No ENT here, advised OP ent, He was started on keppra 500 BID and this will only be temporary post head concussion, Luckily no PT needs. Lortab 10 seemed to control his headache. [place] 2[place]5 hrs [place] us, HOme today with on lortab, keppra, plus some sinus meds, Advised OP ent, Neurologically intact on dc Discharge Information Condition at Discharge: Improved, Stable Follow Up: Weeks (OP ENt soon) Disposition/Orders: D/C to Home Scheduled Amitriptyline Hcl (Amitriptyline Hcl) 25 Mg Tablet, 1 TAB PO QHS for anxiety, #30 Ref 5 (Reported) Entered as Reported by: GABRIELA CROWE on 02/06/19 0328 Last Action: Continued on 02/08/19 1130 by RONIT GRANT Budesonide (Pulmicort Flexhaler) 180 Mcg Aer.pow.ba, 2 PUFF IH BID for soa, copd , #1 Ref 6 Prescribed by: RONIT GRANT on 02/08/19 0812 Cefdinir (Cefdinir) 300 Mg Capsule, 1 CAP PO BID for inefction, #14 Prescribed by: RONIT GRANT on 02/08/191130 Duloxetine Hcl (Cymbalta) 30 Mg Capsule.dr, 1 CAP PO DAILY for anxiety, #30 Ref 5 (Reported) Entered as Reported by: GABRIELA CROWE on 02/06/19327 Last Action: Continued on 02/08/191129 by RONIT GRANT Esomeprazole Magnesium (Nexium Capsule) 40 Mg Capsule.dr, 1 CAP PO DAILY for GERD, #30 Ref 5 (Reported) Entered as Reported by: GABRIELA CROWE on 02/06/19327 Last Action: New Order on 02/06/19327 by GABRIELA CROWE Levetiracetam (Keppra) 500 Mg Tablet, 500 MG PO BID for subduarl hematoma, sz prophy, #60 Prescribed by: RONIT GRANT on 02/08/19811 Scheduled PRN Albuterol Sulfate (Proair Hfa Inhaler) 8.5 Gm Hfa.aer.ad, 2 PUFF IH PRN Q4-6HRS PRN for wheezing for 21 Days, #1 Ref 0 Prescribed by: RONIT GRANT on 02/08/19811 Propranolol Hcl (Propranolol Hcl) 10 Mg Tablet, 1 TAB PO TID PRN PRN for ANXIETY / AGITATION, #60 Ref 1 (Reported) Entered as Reported by: GABRIELA CROWE on 02/06/19327 Last Action: New Order on 02/06/19327 by RONIT SARGENT MD Feb 09, 2019 14:27
--- NOTE | 2019-02-09 15:29 | NUR ---
Discharge Note: MAHOGANY RAMIREZ Discharge instructions and discharge home medications reviewed with Patient and a copy given. All questions have been answered and understanding verbalized. Discontinued lines and drains: peripheral line Patient discharged to Home or Self Care with Spouse via Wheelchair
[2019-02-11 05:13] LABS: B PARAPERTUSSIS PCR Negative (Negative); B PERTUS PCR Negative (Negative)
== END 2019-02-09 15:30 | disposition home or self-care (01) | DRG 82 ==
LOC: ER 22:59 → EDBD 22:59 → 1 WEST ICU 23:50 → 4 NORTH 02-07 17:20
PROVIDERS: ADMIT Internal Medicine; ATTEND Internal Medicine
DX: S06.5X9A Traumatic subdural hemorrhage with loss of consciousness of unspecified duration, initial encounter (principal); G93.41 Metabolic encephalopathy; J44.1 Chronic obstructive pulmonary disease with (acute) exacerbation; J44.0 Chronic obstructive pulmonary disease with (acute) lower respiratory infection; J98.11 Atelectasis; F43.10 Post-traumatic stress disorder, unspecified; F17.210 Nicotine dependence, cigarettes, uncomplicated; W18.30XA Fall on same level, unspecified, initial encounter; J20.9 Acute bronchitis, unspecified; G47.33 Obstructive sleep apnea (adult) (pediatric); S02.19XA Other fracture of base of skull, initial encounter for closed fracture; B34.9 Viral infection, unspecified; J34.2 Deviated nasal septum; W22.09XA Striking against other stationary object, initial encounter; Y93.89 Activity, other specified; Y92.89 Other specified places as the place of occurrence of the external cause; Y99.8 Other external cause status; Z87.09 Personal history of other diseases of the respiratory system; Z83.3 Family history of diabetes mellitus; Z82.49 Family history of ischemic heart disease and other diseases of the circulatory system
CPT/HCPCS: 36415; 70450; 70551; 71045; 71046; 72125; 80048; 80053; 80307; 81001; 82553; 83605; 83735; 84484; 85025; 85610; 85730; 87040; 87070; 87205; 87449; 87801; 87804; 93005; 93306; 94640; 94760; 96360; G0390; G0480; J0456; J0696; J2543; J3010; J3475; J3480; J3490; J7030; J7050; J7620; J7626; J8540; 97535; 99291-25; G0378